=== PATIENT | male | born 1945 | race Caucasian/White ===

== ENCOUNTER 2018-06-11 19:03 | Emergency (ER) | payer MEDICARE, OTHER ==
[~2018-06-11] VITALS: Ht 182.9 cm; Wt 72.6 kg
[~2018-06-11 19:03] MED LIST: ALBU90OI INH; AMLO5 PO; ATEN25; BENZ100A PO; CARI350 PO; CEPH500 PO; CLIN300 PO; CRUTCH4 USE; CYCL10 PO; DOC250 PO; Doxycycline150 MG PO; FURO20 PO; FURO40 PO; GABA300 PO; GABA600 PO; GUAIFENESIN-DM S5 ML PO; HYDACE10B PO; HYDACE5 PO; HYDCHL12.5 PO; HYDCHL25; IBUP800 PO; KETO10 PO; LASIX; LEVFLO500 PO; Lasix20 MG PO; META800 PO; METO2.5 PO; METPHE20 PO; METR500 PO; MODA200 PO; NAPR500 PO; NAPR550 PO; NORCO; NYST100P TOP; OLME20 PO; ONDA4 PO; OXYACE5T PO; POTASSIUM; POTCHL20ER PO; PRED20 PO; PROM25 PO; QUIN325; ROPI.25 PO; RXCEPH500 PO; RXHYDACE PO; RXMETA800 PO; RXOXYACE PO; RXSULTRIDS PO; RXTRAM50 PO; SULTRIDS PO; SULTRISS PO; SUMA25 PO; TESTOSTERONE; TESTOSTERONE GEL; TRAACE PO; TRAM50 PO; TRAZ50 PO; VALS80; VALS80 PO; VENL37.5 PO; VENL75ER PO; WARF1 PO; WARF7.5 PO
== END 2018-06-11 20:50 | disposition home or self-care (01) ==
LOC: ER 19:03
DX: D68.32 Hemorrhagic disorder due to extrinsic circulating anticoagulants (principal); T45.515A Adverse effect of anticoagulants, initial encounter; I10 Essential (primary) hypertension; Z79.899 Other long term (current) drug therapy; Z79.01 Long term (current) use of anticoagulants; Z87.891 Personal history of nicotine dependence
CPT/HCPCS: 96372; 99282; J3430

== ENCOUNTER 2018-09-27 16:02 | Emergency (ER) | payer OTHER ==
[~2018-09-27 16:02] MED LIST changes: +ACETAMINOPHEN500 MG PO; +Coumadin5 MG PO; +Lasix40 MG PO; +Micro-K10 MEQ PO; +Ultram50 MG PO; +XARELTO10 MG PO
== END 2018-09-27 16:29 | disposition left against medical advice (07) ==
LOC: ER 16:02
DX: Z53.21 Procedure and treatment not carried out due to patient leaving prior to being seen by health care provider (principal)

== ENCOUNTER → 2018-09-28 | Outpatient (CLI) | payer MEDICARE, OTHER ==
[2018-09-28 19:44] LABS: International Normalized Ratio 1.1; Prothrombin Time Results 11.3 Sec (9.7-11.5)
[2018-09-28 19:59] LABS: CHOL/HDL RATIO 2.3; Cholesterol 116 mg/dL (50-200); HDL Cholesterol 50 mg/dL (>39); LDL/HDL RATIO 1.2; Low Density Lipoprotein Chol 58 mg/dL (0-110); Triglycerides 42 mg/dL (30-160); Very Low Density Lipoprot Chol 8 mg/dL (6-32)
== END | disposition home or self-care (01) ==
LOC: LAB 17:10 → LAB SHORT 17:10
PROVIDERS: Family Medicine
DX: Z00.00 Encounter for general adult medical examination without abnormal findings (principal); I82.409 Acute embolism and thrombosis of unspecified deep veins of unspecified lower extremity; I86.1 Scrotal varices; R68.82 Decreased libido
CPT/HCPCS: 80061; 84153; 84403; 85610

== ENCOUNTER 2019-09-09 10:11 | Emergency (ER) | payer MEDICARE, OTHER ==
[~2019-09-09] VITALS: Ht 182.9 cm; Wt 90.7 kg
[2019-09-09 10:51] LABS: BASOPHILS ABSOLUTE AUTO 0.04 K/mm3 (0.00-0.23); BASOPHILS PERCENT AUTO 1 % (0-2); EOSINOPHILS ABSOLUTE AUTO 0.15 K/mm3 (0.00-0.68); EOSINOPHILS PERCENT AUTO 2 % (0-6); Hematocrit 41.6 % (37.0-53.0); Hemoglobin 13.6 g/dL (13.5-17.5); IMMATURE GRAN ABSOLUTE AUTO 0.02 K/mm3 (0.00-0.10); IMMATURE GRAN PERCENT AUTO 0 % (0-1); LYMPHOCYTES ABSOLUTE AUTO 1.68 K/mm3 (0.84-5.20); LYMPHOCYTES PERCENT AUTO 26 % (21-46); MONOCYTES ABSOLUTE AUTO 0.79 K/mm3 (0.16-1.47); MONOCYTES PERCENT AUTO 12 % (4-13); Mean Corpuscular HGB 32.2 pg (26.0-34.0); Mean Corpuscular HGB Conc 32.7 g/dL (31.5-36.5); Mean Corpuscular Volume 99 fL (80-100); Mean Platelet Volume 9.9 fL (9.1-12.4); NEUTROPHILS ABSOLUTE AUTO 3.82 K/mm3 (1.96-9.15); NEUTROPHILS PERCENT AUTO 59 % (41-73); Platelet Count 201 K/mm3 (150-400); RDW Coefficient Variation 13.6 % (11.7-14.2); RDW Standard Deviation 49.1 fL (35.1-46.3); Red Blood Cell Count 4.22 M/mm3 (4.30-5.90)
[2019-09-09 11:01] LABS: Anion Gap 5 mmol/L (6-16); Blood Urea Nitrogen 29 mg/dL (8-24); CO2, Blood 27 mmol/L (21-32); Calcium, Blood 8.9 mg/dL (8.5-10.1); Chloride, Blood 110 mmol/L (98-108); Glucose, Blood 114 mg/dL (70-99); Potassium, Blood 4.3 mmol/L (3.5-5.5); Sodium, Blood 142 mmol/L (136-145)
[2019-09-09 11:03] LABS: Bun/Creatinine Ratio 41.8 (12.0-20.0); Creatinine, Blood 0.69 mg/dL (0.60-1.20); Glomerular Filtration Rate >60 (60-)
[2019-09-09 11:08] LABS: International Normalized Ratio 0.94
[2019-09-09 12:37] LABS: Source, Urine Clean Catch
[2019-09-09 12:45] LABS: Appearance, Urine Clear (Clear); Bilirubin, Urine Neg (Neg); Blood, Urine Neg (Neg); Color, Urine Yellow (P-Yellow); Glucose Qualitative, Urine Neg (Neg); Ketones, Urine Neg (Neg); Leukocyte Esterase, Urine Neg (Neg); Nitrite, Urine Neg (Neg); Protein, Urine Neg (Neg); Urobilinogen, Urine NORM (Normal)
[2019-09-09] MEDS ORDERED: XARELTO15 MG PO (13:21)
[2019-09-09] MEDS ORDERED: Lasix40 MG PO (13:21)
== END 2019-09-09 13:56 | disposition home or self-care (01) ==
LOC: ER 10:11
PROVIDERS: Emergency Medicine
DX: I87.8 Other specified disorders of veins (principal); G47.419 Narcolepsy without cataplexy; Z91.14 Patient's other noncompliance with medication regimen; E66.9 Obesity, unspecified; Z68.27 Body mass index [BMI] 27.0-27.9, adult; I10 Essential (primary) hypertension; J44.9 Chronic obstructive pulmonary disease, unspecified; Z87.442 Personal history of urinary calculi; Z85.46 Personal history of malignant neoplasm of prostate; Z87.891 Personal history of nicotine dependence; Z86.718 Personal history of other venous thrombosis and embolism; Z79.899 Other long term (current) drug therapy; Z79.01 Long term (current) use of anticoagulants
CPT/HCPCS: 71046; 80048; 81003; 85025; 85610; 85730; 93005; 93010; 93970; 96374; 99285-25

== ENCOUNTER 2020-10-30 12:26 | Inpatient (IN) | payer MEDICARE, OTHER ==
[~2020-10-30] VITALS: Ht 185.4 cm; Wt 133.3 kg
[~2020-10-30 12:26] MED LIST changes: +XARELTO15 MG PO
[2020-10-30 13:16] LABS: BASOPHILS ABSOLUTE AUTO 0.01 K/mm3 (0.00-0.23); BASOPHILS PERCENT AUTO 0 % (0-2); EOSINOPHILS PERCENT AUTO 0 % (0-6); Hematocrit 45.6 % (37.0-53.0); Hemoglobin 14.7 g/dL (13.5-17.5); IMMATURE GRAN ABSOLUTE AUTO 0.03 K/mm3 (0.00-0.10); IMMATURE GRAN PERCENT AUTO 0 % (0-1); LYMPHOCYTES ABSOLUTE AUTO 0.48 K/mm3 (0.84-5.20); LYMPHOCYTES PERCENT AUTO 6 % (21-46); MONOCYTES ABSOLUTE AUTO 1.02 K/mm3 (0.16-1.47); MONOCYTES PERCENT AUTO 12 % (4-13); Mean Corpuscular HGB 31.7 pg (26.0-34.0); Mean Corpuscular HGB Conc 32.2 g/dL (31.5-36.5); Mean Corpuscular Volume 98 fL (80-100); Mean Platelet Volume 10.8 fL (9.1-12.4); NEUTROPHILS ABSOLUTE AUTO 6.76 K/mm3 (1.96-9.15); NEUTROPHILS PERCENT AUTO 81 % (41-73); Platelet Count 188 K/mm3 (150-400); RDW Coefficient Variation 14.6 % (11.7-14.2); RDW Standard Deviation 52.9 fL (35.1-46.3); Red Blood Cell Count 4.64 M/mm3 (4.30-5.90)
[2020-10-30] MEDS ORDERED: XARELTO20 MG PO (13:21)
[2020-10-30 13:28] LABS: International Normalized Ratio 1.07; Prothrombin Time Results 11.4 Sec (9.7-11.5)
[2020-10-30 13:38] LABS: Alanine Aminotransfer (ALT/SGP 129 U/L (12-78); Albumin, Blood 3.7 g/dL (3.4-5.0); Alk Phos 82 U/L (50-136); Anion Gap 17 mmol/L (6-16); Aspartate Aminotrans (AST/SGOT 174 U/L (12-37); Blood Urea Nitrogen 52 mg/dL (8-24); Bun/Creatinine Ratio 68.6 (12.0-20.0); CO2, Blood 16 mmol/L (21-32); Calcium, Blood 9.2 mg/dL (8.5-10.1); Chloride, Blood 110 mmol/L (98-108); Creatinine, Blood 0.76 mg/dL (0.60-1.20); Globulin, Blood 3.7 g/dL (2.2-4.0); Glomerular Filtration Rate >60 (60-); Glucose, Blood 116 mg/dL (70-99); Potassium, Blood 5.1 mmol/L (3.5-5.5); Sodium, Blood 143 mmol/L (136-145); Total Protein, Blood 7.4 g/dL (6.4-8.2)
[2020-10-30 14:23] LABS: Creatine Kinase MB 61.2 ng/mL (0.0-3.6); Creatine Kinase MB Index 1.9 (0.0-4.0)
[2020-10-30 17:12] LABS: Source, Urine Clean Catch
[2020-10-30 17:21] LABS: Appearance, Urine Clear (Clear); Bilirubin, Urine Neg (Neg); Blood, Urine 2+ (Neg); Color, Urine Yellow (P-Yellow); Glucose Qualitative, Urine Neg (Neg); Ketones, Urine 4+ (Neg); Leukocyte Esterase, Urine Neg (Neg); Nitrite, Urine Neg (Neg); Protein, Urine 1+ (Neg); Specific Gravity, Urine 1.025 (1.003-1.022); Urobilinogen, Urine NORM (Normal)
[2020-10-30 17:28] LABS: Bacteria Rare /hpf; Red Blood Cells, Urine 0-2 /hpf (0-2); Squamous Epithelial Cells Not Seen /hpf (Few); White Blood Cells, Urine 0-2 /hpf (0-5)
[2020-10-30 18:57] LABS: U Amphetamine Screen Not Detected; U Barbituate Screen Not Detected; U Benzodiazapine Screen Not Detected; U Buprenorphine Screen DETECTED; U Cannabinoids Screen Not Detected; U Cocaine Screen Not Detected; U Methadone Screen Not Detected; U Methamphetamine Screen Not Detected; U Opiates Screen Not Detected; U Oxycodone Screen Not Detected; U Phencyclidine Screen Not Detected; U Propoxyphene Screen Not Detected
--- NOTE | 2020-10-30 19:30 | NUR ---
SHIFT SUMMARY TY ARRIVED FROM ER AROUND 530PM. HIS GROIN AND SCROTUM ARE PAINFULLY EXCORIATED, CLEANED, PICTURES TAKEN, MICONAZOLE POWDER APPLIED. MIVF RUNNING. DINNER BROUGHT TO PT. TOOK MEDS PRESCRIBED. USING URINAL APPROPRIATELY. CALL LIGHT IN REACH, REPORT GIVEN TO NIGHT NURSE
--- NOTE | 2020-10-31 01:36 | NUR ---
10/31/20 0135 PT CALLED CERTIFIED NURSING ATTENDANT AND SPOKE IN CHILD-LIKE VOICE THAT HE WANTED "WATER". PT HAD C/O THIRST EARLIER AND DRANK 2 LARGE GLASSES OF WATER IN 5 MINUTES AND WANTED 2 MILKS. AFTER RN GAVE THESE FLUIDS, HE WAS INFORMED TO SLOW DOWN HIS DRINKING. HE RELUCTANTLY SAID, "OKAY."
[2020-10-31 05:28] LABS: BASOPHILS ABSOLUTE AUTO 0.02 K/mm3 (0.00-0.23); BASOPHILS PERCENT AUTO 0 % (0-2); EOSINOPHILS ABSOLUTE AUTO 0.03 K/mm3 (0.00-0.68); EOSINOPHILS PERCENT AUTO 1 % (0-6); Hematocrit 38.1 % (37.0-53.0); Hemoglobin 12.5 g/dL (13.5-17.5); IMMATURE GRAN ABSOLUTE AUTO 0.01 K/mm3 (0.00-0.10); IMMATURE GRAN PERCENT AUTO 0 % (0-1); LYMPHOCYTES ABSOLUTE AUTO 0.97 K/mm3 (0.84-5.20); LYMPHOCYTES PERCENT AUTO 16 % (21-46); MONOCYTES PERCENT AUTO 18 % (4-13); Mean Corpuscular HGB 31.3 pg (26.0-34.0); Mean Corpuscular HGB Conc 32.8 g/dL (31.5-36.5); Mean Corpuscular Volume 95 fL (80-100); Mean Platelet Volume 10.5 fL (9.1-12.4); NEUTROPHILS ABSOLUTE AUTO 4.09 K/mm3 (1.96-9.15); NEUTROPHILS PERCENT AUTO 66 % (41-73); Platelet Count 175 K/mm3 (150-400); RDW Coefficient Variation 14.4 % (11.7-14.2); RDW Standard Deviation 50.4 fL (35.1-46.3); White Blood Cell Count 6.22 K/mm3 (4.00-11.30)
[2020-10-31 06:02] LABS: Alanine Aminotransfer (ALT/SGP 98 U/L (12-78); Albumin, Blood 2.9 g/dL (3.4-5.0); Alk Phos 68 U/L (50-136); Anion Gap 10 mmol/L (6-16); Aspartate Aminotrans (AST/SGOT 103 U/L (12-37); Blood Urea Nitrogen 32 mg/dL (8-24); Bun/Creatinine Ratio 58.6 (12.0-20.0); CO2, Blood 21 mmol/L (21-32); Calcium, Blood 8.4 mg/dL (8.5-10.1); Chloride, Blood 109 mmol/L (98-108); Creatinine, Blood 0.55 mg/dL (0.60-1.20); Globulin, Blood 2.8 g/dL (2.2-4.0); Glomerular Filtration Rate >60 (60-); Glucose, Blood 172 mg/dL (70-99); Potassium, Blood 3.8 mmol/L (3.5-5.5); Sodium, Blood 140 mmol/L (136-145); Total Protein, Blood 5.7 g/dL (6.4-8.2)
--- NOTE | 2020-10-31 07:40 | NUR ---
10/31/20 0600 SLIGHT FEVER THIS AM OTHERWISE VITALS STABLE. PT AWAKE ALL NIGHT. NO REASONS GIVEN. FREQUENT REQUESTS FOR DRINKS/SNACKS THROUGHTOUT SHIFT. GROIN, SCROTUM AND UPPER THIGHS ESCORIATED AND SKIN BARRIER CREAM APPLIED THIS AM. FEET FLOATED OFF BED WITH PILLOWS. OCC."ODD" STATEMENTS TOWARDS STAFF. SEE PREVIOUS NOTE.
--- NOTE | 2020-10-31 10:51 | NUR ---
Pt gave consent to perform care on 10/31/2020.
[2020-10-31 14:27] LABS: Source, Urine Catheter
[2020-10-31 14:39] LABS: Appearance, Urine Clear (Clear); Bilirubin, Urine Neg (Neg); Blood, Urine 3+ (Neg); Color, Urine Yellow (P-Yellow); Glucose Qualitative, Urine Neg (Neg); Ketones, Urine 3+ (Neg); Leukocyte Esterase, Urine Neg (Neg); Nitrite, Urine Neg (Neg); Protein, Urine 1+ (Neg); Urobilinogen, Urine NORM (Normal); pH, Urine 6.5 (5.0-8.0)
[2020-10-31 14:53] LABS: White Blood Cells, Urine 0-2 /hpf (0-5)
[2020-10-31 14:54] LABS: Bacteria Few /hpf; Squamous Epithelial Cells Rare /hpf (Few)
--- NOTE | 2020-10-31 19:17 | NUR ---
SHIFT SUMMARY TY COMPLAINED OF PAIN IN HIS SHOULDERS AND SCROTUM. GOT PO OXY AND ICE PACKS APPLIED TO SHOULDERS. PT STATED HE FELT LIKE HE COULDN'T PEE WELL. BLADDER SCAN SHOWED 744ML, DR ARNETT CALLED AND SHE ORDERED A RUTHERFORD CATHETER. CATHETER IN PLACE AND DRAINING WELL. CALL LIGHT IN REACH, REPORT GIVEN TO NIGHT NURSE
--- NOTE | 2020-11-01 04:38 | NUR ---
LOG BRANDER SUMMARY PT A&OX4, FORGETFUL AT TIMES, ABLE TO MAKE NEEDS KNOWN. PLEASANT AND COOPERATIVE TO CARE. PT MEDICATED FOR BUE PAIN PER EMAR. PT ALSO MEDICATED FOR N&V x1. NO C/O CP OR SOB. RUTHERFORD CATH PATENT AND DRAINING CLEAR YELLOW URINE, NO C/O DYSURIA THIS SHIFT. PT CALM AND RESTED IN BED AT THIS TIME. CALL LIGHT WITHIN REACH.
[2020-11-01 09:04] LABS: Anion Gap 2 mmol/L (6-16); Blood Urea Nitrogen 21 mg/dL (8-24); Bun/Creatinine Ratio 34.9 (12.0-20.0); CO2, Blood 28 mmol/L (21-32); CPK Creatine Kinase 457 U/L (39-308); Calcium, Blood 9.2 mg/dL (8.5-10.1); Chloride, Blood 104 mmol/L (98-108); Glomerular Filtration Rate >60 (60-); Glucose, Blood 149 mg/dL (70-99); Potassium, Blood 4.5 mmol/L (3.5-5.5); Sodium, Blood 134 mmol/L (136-145)
--- NOTE | 2020-11-01 15:02 | NUR ---
PT REFUSED PLACEMENT OF NG TUBE. PT STATED HE IS FEELING BETTER AND NOT NASEAOUS ANY MORE. PT DID HAVE SOME FOOD AND FLUIDS THIS AFTERNOON AT [facility] AND IS CURRENTLY TOLERATING THAT. HE HAS NOT EXPERIENCING ANY EMESIS SINCE THIS AM. DR MERLOS WAS INFORMED OF PT REFUSAL. PT ENCOURAGED TO CONSIDER THE NG TUBE IF EMISIS CONTINUES. DR VALENCIA ALSO CAME BY TO SEE PT. HE STATED HE DOES NOT BELEIVE THE PT HAS A SMALL BOWEL OBSTRUCTION. HE THINKS IT IS PARALYTIC ILEUS. PT STARTED SENNA AND MIRALAX TODAY.
--- NOTE | 2020-11-01 18:31 | NUR ---
SHIFT SUMMARY APPROX 0720, RIGHT AFTER SHIFT REPORT PT EXPERIENCED AN EPISODE OF EMISIS, OUTPUT OF 1400. PT THEN HAD A SECOND EPISODE APPROX 1 HOUR LATER THAT WAS LARGE BUT UNMEASURED. CT SCAN ORDERED AND DR VALENCIA WAS CONSULTED. NG TUBE PLACEMENT WAS THEN ORDERED BUT THE PT REFUSED NG TUBE. PROVIDER WAS NOTIFIED. PT HAS NOT HAS NOT THROWN UP SINCE, AND IS CURRENTLY TOLERATING SMALL AMOUNTS OF FOOD AND LIQUIDS @ A TIME. PT INSISTS ON EATING AND DRINKING THOUGH IT WAS RECOMMENDED TO TAKE IT EASY. PT WAS TREATED FOR NAUSEA @ APPROX 1730 PER EMAR. PT HAS NOT HAD A BM SINCE 10/26/20. PROVIDER NOTIFIED AND BOWEL PROTOCOL WAS STARTED. PT EXPERIENCES PAIN IN THE SHOULDERS AND HIS SCROTUM, PT TREATED TWICE TODAY PER EMAR. PT IS CURRENTLY RECIEVING 100 ML/HR OF NS. PT IS SITTING UP IN BED WITH CALL LIGHT WITHIN REACH. CALLS APPROPRIATELY.
--- NOTE | 2020-11-02 04:16 | NUR ---
SHIFT SUMMARY ASSUMED CARE OF PT AT 1900. PT IS A/OX4 BUT VERY [place]. PT REQUESTED A LOT OF CARE FROM THE NURSE AND BORE MILL OPERATOR FOR PLASTIC THIS EVENING, PT CALLED REPEATIVLY FOR SMALL TASKS. PT WOULD YELL OUT INTO THE [place] WAY. HEART SOUNDS IRREGULAR, LUNG SOUNDS DIMINISHED AT THE BASES. PT ABD IS FIRM AND DISTENDED. PT VOMITED BROWN LIQUID, ABOUT 1400, BUT UNMEASURED DUE TO AMOUNT ON BED. PT GIVEN PHENERGEN AND THEN SLEPT A COUPLE HOURS. PT AWOKE AGAIN AND VOMITED A SMALL AMOUNT BUT REFUSED NEASEA MEDICATION BECAUSE HE STATED THAT IT DIDNT WORK. PT C/O SHOULDER PAIN, MEDICATED PER EMAR. PT WAS NOT ABLE TO SLEEP WELL AND SAT ON THE SIDE OF THE BED BUT THEN LAYED DOWN AFTER 10 MIN. CALL LIGHT IN REACH, BED IN LOWEST POSITION.
--- NOTE | 2020-11-02 11:00 | NUR ---
NG TUBE PLACEMENT PT VOMITING LARGE AMOUNTS OF BROWN EMESIS AND C/O NAUSEA. THIS RN PLACED NG TUBE TO LEFT NOSTRIL WITHOUT DIFFICULTY. NG TUBE IS CONNECTED TO SUCTION AT LOW INTERMITTENT SUCTION. SMALL AMOUNT OF BLEEDING NOTED FROM NOSE BUT STOPPED. WILL MONITOR. CALL LIGHT IN REACH.
--- NOTE | 2020-11-02 19:29 | NUR ---
SHIFT SUMMARY NG TUBE PLACED AT 1100 THIS SHIFT AND HAS PUT OUT LARGE AMOUNTS OF DARK BROWN DRAINAGE. PT PULLED ON NG TUBE THIS EVENING AND ALMOST PULLED IT OUT. THIS RN HAD TO ADVANCE TUBE BACK TO POSITION WAS IN FOR SUCTION. PT TOLERATED WELL. MEDICATED FOR PAIN X2 PER EMAR. PT HAS REPORTED FEELING BETTER SINCE NG WAS PLACED. NO COMPLAINTS OF NAUSEA OR ABDOMINAL PAIN. REPORT GIVEN TO AMISH RN. CALL LIGHT IN REACH.
--- NOTE | 2020-11-03 04:35 | NUR ---
SHIFT SUMMARY ASSUMED CARE OF PT AT 1900. PT IS A/OX4. HEART SOUNDS REGULAR, LUNG SOUNDS DIMINISHED. ABD IS STILL DISTENED BUT NOT FIRM YESTERDAY. PT NG TUBE IS DRAINING BROWN LIQUID, PT DRAINED ABOUT 1000ML THIS SHIFT. PT REFUSED BOWEL CARE MEDICATIONS BECAUSE HE HAD THE NG TUBE AND SAID HE WOULD TAKE THEM IN THE AM. CATHETER DRAINING YELLOW URINE. PT SKIN IS IMPROVING SINCE YESTERDAY. PT HAS REPEATIVLY CALLED THIS NURSE AND REFRIGERATED CARGO CLERK INTO THE ROOM FOR SMALL TASKS. PT STATED RUDE COMMENTS WHEN HE FELT THAT HE WAS BEING PATRONIZED. PT TOLD A REFRIGERATED CARGO CLERK THAT SHE NEEDED TO GET HEARING AIDES IF SHE COULDNT HEAR HIM. PT WILL ASK FOR A PILLOW TO BE PUT UNDER HIS HEAD AND THEN HE WILL IMMEDIATLY PULL THE PILLOW OUT. PT C/O PAIN IN HIS NOSTRIL DUE TO NG TUBE AND ASKED THAT IT BE PULLED OUT AND PUT INTO OTHER NOSE. PT C/O HIS HICCUPS HURTING HIS NOSE DUE TO NG TUBE, PT ASKS FOR IV BOWEL CARE. AT ONE POINT PT ASKED REFRIGERATED CARGO CLERK TO STAY IN ROOM TO TALK TO HIM ALL NIGHT. CALL LIGHT IN REACH, BED IN LOWEST POSITON.
[2020-11-03 09:15] LABS: Albumin, Blood 2.7 g/dL (3.4-5.0); Anion Gap 5 mmol/L (6-16); Blood Urea Nitrogen 20 mg/dL (8-24); Bun/Creatinine Ratio 32.6 (12.0-20.0); CO2, Blood 33 mmol/L (21-32); Calcium, Blood 8.6 mg/dL (8.5-10.1); Chloride, Blood 104 mmol/L (98-108); Creatinine, Blood 0.61 mg/dL (0.60-1.20); Glomerular Filtration Rate >60 (60-); Glucose, Blood 146 mg/dL (70-99); Phosphorus, Blood 2.2 mg/dL (2.5-4.9); Sodium, Blood 142 mmol/L (136-145)
--- NOTE | 2020-11-03 18:21 | NUR ---
SHIFT SUMMARY PT WORKED WITH PHYSICAL & OCCUPATIONAL THERAPY TODAY. PT GOT UP TO RECLINER WITH 1P ASSIST. NO BM THIS SHIFT, BUT PT STATES HE IS PASSING GAS. PT DEMANDING & IMPATIENT WITH CARE T/O DAY, BUT OVERALL COOPERATIVE. SEE EMAR FOR PAIN EMERGENCY PLANNING AND RESPONSE MANAGER. NGT HOOKED UP TO LOW INT SUCTION. 650 ML DARK BROWN OUTPT. NO OTHER ACUTE CHANGES IN ASSESSMENT AT THIS TIME. VS REVIEWED. PT UP IN CHAIR, SWABBING MOUTH CURRENTLY.
[2020-11-03 20:08] LABS: Hematocrit 42.2 % (37.0-53.0); Hemoglobin 13.7 g/dL (13.5-17.5); Mean Corpuscular HGB 31.9 pg (26.0-34.0); Mean Corpuscular HGB Conc 32.5 g/dL (31.5-36.5); Mean Corpuscular Volume 98 fL (80-100); Mean Platelet Volume 9.9 fL (9.1-12.4); NRBC ABSOLUTE 0.03 K/mm3 (0.00-0.02); NRBC Auto 0.4 /100 WBC (0.0-0.2); Platelet Count 208 K/mm3 (150-400); RDW Coefficient Variation 14.6 % (11.7-14.2); RDW Standard Deviation 52.5 fL (35.1-46.3); Red Blood Cell Count 4.29 M/mm3 (4.30-5.90); White Blood Cell Count 7.39 K/mm3 (4.00-11.30)
--- NOTE | 2020-11-03 20:57 | NUR ---
JHON LANGFORD CREDIT RISK ASSOCIATE, CALLED WITH ORDERS TO HOLD LOVENOX TONIGHT ONLY DUE TO SCROTAL BLEEDING EARLIER TONIGHT AT 1920.
--- NOTE | 2020-11-03 23:30 | NUR ---
0 PT FOUND SITTING CHAIR WITH POOL BLOOD ON FLOOR AND AROUND SCROTUM; DIRECT PRESSURE APPLIED TO RIGHT SIDE OF SCROTUM BY GILA STEWART; PT ASSISTED INTO BED VIA ROOM LIFT X 4 ASSIST; ERNESTO DRESSING APPLIED TO SITE BY MONIKA ROE RN, ICU CHARGE NURSE WITH NO BLEEDING NOTED AFTER 10 MINUTES; VITAL SIGNS STABLE. 2049 PT WAS ROLLED BACK AND FORTH AND NO FURTHER BLEEDING WAS NOTED AT SCROTUM; FRESH SHEETS AND DRAINAGE PADS APPLIED TO BED. 2229 PT CONTINUES TO RING LIGHT NUMEROUS TIMES FOR VARIOUS REQUESTS TO INCLUDE DIMMING LIGHT, ASSISTING WITH ADLS.
--- NOTE | 2020-11-04 04:57 | NUR ---
SHIFT SUMMARY: 75 Y/O MORBID OBESE MALE HAD VERY RESTLESS NIGHT WITH PT VERY IRRITABLE AND ARGUEMENTIVE WITH ALL NURSING STAFF; PT UTILIZED CALL LIGHT EVERY 5-10 MINUTES TO BE REPOSITIONED OR GIVEN MORE MOUTH SWABS; PT WAS KEPT NPO EVEN THOUGH PT TRIED NUMEROUS TIMES TO GET ICE CHIPS OR WATER FROM STAFF; PT ALSO HAD BLEEDING EPISODE FROM RIGHT SIDE SCROTUM THAT REQUIRED A RAPID RESPONSE TREATMENT AFTER LARGE POOL BLOOD FOUND ON FLOOR AND UNDER PATIENT WHILE HE WAS SITTING BEDSIDE LOUNGE CHAIR WITH NEPTUME DRESSING (CAUTERIZED SITE) APPLIED WHICH STOPPED THE BLEEDING (NO FURTHER ISSUES WERE NOTED DURING THIS SHIFT AFTER NUMEROUS CHECKS BY THIS NURSE); PTS NG TUBE LEFT NARE HAD CLEAR DRAINAGE; PT HAD NO BM THIS SHIFT EXCEPT FLATUS WHICH PATIENT VOICED HE WAS HAVING NOW; BED ALARM APPLIED FOR SAFETY; BED LOW POSITION WITH CALL LIGHT AT SIDE.
[2020-11-04 05:42] LABS: Anion Gap 8 mmol/L (6-16); Blood Urea Nitrogen 15 mg/dL (8-24); Bun/Creatinine Ratio 24.8 (12.0-20.0); CO2, Blood 28 mmol/L (21-32); Calcium, Blood 8.2 mg/dL (8.5-10.1); Chloride, Blood 107 mmol/L (98-108); Glomerular Filtration Rate >60 (60-); Glucose, Blood 111 mg/dL (70-99); Potassium, Blood 3.9 mmol/L (3.5-5.5); Sodium, Blood 143 mmol/L (136-145)
[2020-11-04 05:49] LABS: BASOPHILS ABSOLUTE AUTO 0.02 K/mm3 (0.00-0.23); BASOPHILS PERCENT AUTO 0 % (0-2); EOSINOPHILS PERCENT AUTO 1 % (0-6); Hematocrit 39.6 % (37.0-53.0); IMMATURE GRAN ABSOLUTE AUTO 0.05 K/mm3 (0.00-0.10); IMMATURE GRAN PERCENT AUTO 1 % (0-1); LYMPHOCYTES ABSOLUTE AUTO 1.45 K/mm3 (0.84-5.20); LYMPHOCYTES PERCENT AUTO 18 % (21-46); MONOCYTES ABSOLUTE AUTO 1.43 K/mm3 (0.16-1.47); MONOCYTES PERCENT AUTO 18 % (4-13); Mean Corpuscular HGB Conc 32.8 g/dL (31.5-36.5); Mean Corpuscular Volume 98 fL (80-100); Mean Platelet Volume 9.8 fL (9.1-12.4); NEUTROPHILS ABSOLUTE AUTO 4.81 K/mm3 (1.96-9.15); NEUTROPHILS PERCENT AUTO 61 % (41-73); NRBC ABSOLUTE 0.02 K/mm3 (0.00-0.02); NRBC Auto 0.3 /100 WBC (0.0-0.2); Platelet Count 206 K/mm3 (150-400); RDW Coefficient Variation 14.4 % (11.7-14.2); RDW Standard Deviation 51.5 fL (35.1-46.3); Red Blood Cell Count 4.06 M/mm3 (4.30-5.90); White Blood Cell Count 7.86 K/mm3 (4.00-11.30)
--- NOTE | 2020-11-04 09:45 | NUR ---
SCROTAL BLEEDING. PT CAREFULLY PLACED IN BEDPAN THIS AM AND TAKEN BACK OFF THIS AM. WHEN REMOVING BEDPAN, THIS RN SAW THE PT HAD BLOOD UNDERNEATH OF HIM. UPON INSPECTION OF HIS SCROTUM, A NEW BLEED WAS DISCOVERED. THIS ONE WAS SMALL, BUT BLEEDING SIGNIFICANTLY. PRESSURE IMMEDIATELY BY THIS RN & [employer]ERGLASS AUTO BODY REPAIRER LORI CALLED TO HELP. WHILE GILA SANDOVAL WAS IN ROOM, THE OPENING FROM YESTERDAY'S EVENTS OPENED BACK UP AND STARTED PROFUSELY BLEEDING. PRESSURE APPLIED TO THIS SPOT WELL BY THIS RN. LORI CALLED DR. COLBERT TO COME AND EVALUATE PT ON WHAT TO DO NEXT. ERNESTO DRESSING APPLIED WITH PRESSURE TO HELP CONTROL BLEEDING. AFTER APPROX 20-30 MINUTES OF PRESSURE, BLEEDING STOPPED. LOREN URIOSTEGUI IN ROOM MONITORING PT FOR BLEEDING. TXA ORDERED AND ON STANDBY IN CASE BLEEDING REOCCURS. VSS. PT ALERT & ORIENTED T/O EVENT.
--- NOTE | 2020-11-04 11:52 | NUR ---
CLEANED & BED CHANGED NO FURTHER BLEEDING HAS REMAINED. HARVEY OCAMPO TECH IN ROOM MONITORING FOR CHANGES. PT LINEN CHANGED & SKIN CLEANED FROM THIS AM. PT TOLERATED WELL. GENTLE MOVEMENT OF SCROTUM T/O.
--- NOTE | 2020-11-04 14:30 | NUR ---
ANOTHER SCROTAL BLEED PT SAT HIMSELF UP TO THE SIDE OF THE BED. PT ASKED TO STOP, BUT STATED THAT HIS BACK HURT TOO MUCH AND HE NEEDED TO SIT UP. DURING THE PROCESS ANOTHER BLEED OCCURED TO THE L SIDE OF THE SCROTUM. THIS BLEED WAS QUICKLY STOPPED WITH SERTASEAL AND PRESSURE. DR. COLBERT NOTIFIED OF YET ANOTHER BLEED. SANDOSTANTIN ORDERED AT THIS TIME. DR. COLBERT INSTRUCTED TO KEEP PT BEDREST AND USE SERTRASEAL DRESSING FOR FUTURE BLEEDS. PT CONTINUES TO BE A ONE ON ONE PT FOR MONITORING OF BLEEDS PT DOES NOT KNOW WHEN THEY OCCUR AND CANNOT BE TRUSTED TO STAY IN BED.
[2020-11-04 16:00] LABS: Hematocrit 40.3 % (37.0-53.0); Hemoglobin 12.9 g/dL (13.5-17.5)
--- NOTE | 2020-11-04 17:22 | NUR ---
3RD SCROTAL BLEEDING. 3RD BLEED FOUND ON THE UNDERSIDE OF THE SCROTUM THIS AFTERNOON. PT DID NOTHING IN THE BED FOR THIS TO OCCUR. BLEED WAS STOPPED AFTER APPLYING SERTRASEAL AND MANUAL PRESSURE TO SCRUTUM. DR. COLBERT NOTIFED & CAME UP TO SEE PT BLOOD LOSS. PLANS TO TRANSFER TO [facility] NOW IN MOTION PER DR. COLBERT. PT BP STABLE AT 158/94, HR 104. PT ALERT & ORIENTED. 1 ON [address] CURRENTLY.
--- NOTE | 2020-11-04 17:47 | NUR ---
SHIFT SUMMARY PT HAS EXPERIENCED 4 SCROTAL BLEEDS IN TOTAL TODAY IN 4 DIFFERENT SPOTS. SEE PREVIOUS NOTES. PLAN TO SEND PT TO [facility] FOR FURTHER TREATMENT PER DR. COLBERT. PT VITALS HAVE REMAINED STABLE T/O THE DAY. NO BM TODAY. PT PASSING GAS. NGT OUTPUT HAD SLOWED COMPARED TO YESTERDAY & HAD BECOME MORE DARK GREEN IN COLOR. PT HAS REMAINED A&OX4 T/O THE DAY. SEE EMAR FOR PAIN MEDS ADMIN. NGT AT LOW INT SUCTION. NO OTHER ACUTE CHANGES IN ASSESSMENT AT THIS TIME. PT SON UPDATED EARLIER TODAY ABOUT ILLIUM AND SCROTAL BLEEDING. VSS. PT RESTING IN BED. 1 TO 1 OBSERVATION TO MONITOR FURTHER BLEEDING.
[2020-11-04 17:48] LABS: International Normalized Ratio 1.07; Prothrombin Time Results 11.4 Sec (9.7-11.5)
--- NOTE | 2020-11-04 18:40 | NUR ---
REPORT CALLED TO GILA YADAV AT [facility]. NO FURTHER QUESTIONS REQUIRED AT THIS TIME.
--- NOTE | 2020-11-04 19:34 | NUR ---
REPORT RECEIVED FROM GILA STEWART; PT DISCHARGED VIA [facility] WITH ALL PERSONAL BELONGINGS TO [facility]; PT ASSISTED INTO GURNEY VIA MECHANICAL LIFT IN ROOM.
[2021-04-28] MEDS ORDERED: CLOBET30L TOP (19:53)
[2021-04-28] MEDS ORDERED: CEPH500 PO (19:53)
== END 2020-11-04 19:36 | disposition short-term general hospital (02) | DRG 558 ==
LOC: ER 12:26 → MEDS 12:27
PROVIDERS: Emergency Medicine; Hospitalist; Internal Medicine; Nurse Practitioner Acute Care; Physician Assistant; Student in an Organized Health Care Education/Training Program; ADMIT Internal Medicine
DX: M62.82 Rhabdomyolysis (principal); K56.0 Paralytic ileus; E87.2 Acidosis; E86.0 Dehydration; R14.0 Abdominal distension (gaseous); Z86.711 Personal history of pulmonary embolism; B37.2 Candidiasis of skin and nail; R53.81 Other malaise
CPT/HCPCS: 36415; 70450; 71045; 74177; 80048; 80053; 80069; 81001; 82271; 82550; 82553; 82947; 83036; 83880; 85014; 85018; 85025; 85027; 85610; 85730; 86850; 86900; 86901; 93005; 93010; 96360; 96361; 97110; 97162; 97165; 97530; 97535; 99285-25; A9270; J1650; J2354; J2405; J2550; J2765; J3010; J7030; J7060; Q9967

== ENCOUNTER 2020-11-09 03:08 | Emergency (ER) | payer MEDICARE, OTHER ==
[~2020-11-09] VITALS: Ht 188 cm; Wt 136.1 kg
[~2020-11-09 03:08] MED LIST changes: +XARELTO20 MG PO
[2020-11-10] MEDS ORDERED: Acetaminophen325 M1 PO (02:52)
[2020-11-10] MEDS ORDERED: ACET325 (02:52)
[2020-11-10] MEDS ORDERED: DILT120 PO (02:53)
[2020-11-10] MEDS ORDERED: Cardizem CD 12120 MG PO (21:55)
[2021-04-28] MEDS ORDERED: CLOBET30L TOP (19:53)
[2021-04-28] MEDS ORDERED: CEPH500 PO (19:53)
== END 2020-11-09 11:28 | disposition home or self-care (01) ==
LOC: ER 03:08
DX: N50.89 Other specified disorders of the male genital organs (principal); Z79.01 Long term (current) use of anticoagulants; Z79.899 Other long term (current) drug therapy; Z87.891 Personal history of nicotine dependence
CPT/HCPCS: 99284

== ENCOUNTER 2020-11-10 02:34 | Emergency (ER) | payer MEDICARE, OTHER ==
[~2020-11-10] VITALS: Ht 185.4 cm; Wt 90.7 kg
[2020-11-10] MEDS ORDERED: ACET325 (02:52)
[2020-11-10] MEDS ORDERED: Acetaminophen325 M1 PO (02:52)
[2020-11-10] MEDS ORDERED: DILT120 PO (02:53)
[2020-11-10] MEDS ORDERED: Cardizem CD 12120 MG PO (21:55)
[2021-04-28] MEDS ORDERED: CEPH500 PO (19:53)
[2021-04-28] MEDS ORDERED: CLOBET30L TOP (19:53)
== END 2020-11-10 03:14 | disposition home or self-care (01) ==
LOC: ER 02:34
DX: I86.1 Scrotal varices (principal); I10 Essential (primary) hypertension; J44.9 Chronic obstructive pulmonary disease, unspecified; Z87.891 Personal history of nicotine dependence; Z79.899 Other long term (current) drug therapy; Z79.01 Long term (current) use of anticoagulants; Z88.6 Allergy status to analgesic agent
CPT/HCPCS: 12001; 99283-25

== ENCOUNTER 2020-11-10 17:38 | Emergency (ER) | payer MEDICARE, OTHER ==
[~2020-11-10] VITALS: Ht 185.4 cm; Wt 131.5 kg
[~2020-11-10 17:38] MED LIST changes: +ACET325; +Acetaminophen325 M1 PO; +DILT120 PO
[2020-11-10 18:42] LABS: BASOPHILS ABSOLUTE AUTO 0.05 K/mm3 (0.00-0.23); BASOPHILS PERCENT AUTO 0 % (0-2); EOSINOPHILS ABSOLUTE AUTO 0.05 K/mm3 (0.00-0.68); EOSINOPHILS PERCENT AUTO 0 % (0-6); Hematocrit 33.5 % (37.0-53.0); Hemoglobin 10.9 g/dL (13.5-17.5); IMMATURE GRAN ABSOLUTE AUTO 0.19 K/mm3 (0.00-0.10); IMMATURE GRAN PERCENT AUTO 1 % (0-1); LYMPHOCYTES ABSOLUTE AUTO 0.72 K/mm3 (0.84-5.20); LYMPHOCYTES PERCENT AUTO 5 % (21-46); MONOCYTES ABSOLUTE AUTO 0.35 K/mm3 (0.16-1.47); MONOCYTES PERCENT AUTO 2 % (4-13); Mean Corpuscular HGB 31.1 pg (26.0-34.0); Mean Corpuscular HGB Conc 32.5 g/dL (31.5-36.5); Mean Corpuscular Volume 96 fL (80-100); Mean Platelet Volume 9.4 fL (9.1-12.4); NEUTROPHILS ABSOLUTE AUTO 14.72 K/mm3 (1.96-9.15); NEUTROPHILS PERCENT AUTO 92 % (41-73); Platelet Count 364 K/mm3 (150-400); RDW Coefficient Variation 14.2 % (11.7-14.2); RDW Standard Deviation 49.8 fL (35.1-46.3); White Blood Cell Count 16.08 K/mm3 (4.00-11.30)
[2020-11-10 19:00] LABS: Alanine Aminotransfer (ALT/SGP 47 U/L (12-78); Albumin, Blood 2.7 g/dL (3.4-5.0); Albumin/Globulin Ratio 0.7 (0.8-1.8); Alk Phos 82 U/L (50-136); Anion Gap 7 mmol/L (6-16); Aspartate Aminotrans (AST/SGOT 45 U/L (12-37); Bilirubin, Total 0.4 mg/dL (0.1-1.0); Blood Urea Nitrogen 23 mg/dL (8-24); Bun/Creatinine Ratio 28.5 (12.0-20.0); CO2, Blood 30 mmol/L (21-32); Calcium, Blood 9.2 mg/dL (8.5-10.1); Chloride, Blood 100 mmol/L (98-108); Creatinine, Blood 0.81 mg/dL (0.60-1.20); Globulin, Blood 3.9 g/dL (2.2-4.0); Glomerular Filtration Rate >60 (60-); Glucose, Blood 154 mg/dL (70-99); Potassium, Blood 3.4 mmol/L (3.5-5.5); Sodium, Blood 137 mmol/L (136-145); Total Protein, Blood 6.6 g/dL (6.4-8.2)
[2020-11-10 21:07] LABS: Troponin I <0.015 ng/mL (0.000-0.040)
[2020-11-10] MEDS ORDERED: Cardizem CD 12120 MG PO (21:55)
[2021-04-28] MEDS ORDERED: CLOBET30L TOP (19:53)
[2021-04-28] MEDS ORDERED: CEPH500 PO (19:53)
== END 2020-11-10 22:01 | disposition home or self-care (01) ==
LOC: ER 17:38
PROVIDERS: Emergency Medicine
DX: I48.91 Unspecified atrial fibrillation (principal); D64.9 Anemia, unspecified; I10 Essential (primary) hypertension; J44.9 Chronic obstructive pulmonary disease, unspecified; Z79.899 Other long term (current) drug therapy; Z79.01 Long term (current) use of anticoagulants; Z88.6 Allergy status to analgesic agent; Z87.891 Personal history of nicotine dependence
CPT/HCPCS: 36415; 80053; 84443; 84484; 85025; 93005; 93010; 96361; 96374; 99285-25; A9270; J7030

== ENCOUNTER 2020-11-12 15:52 | Emergency (ER) | payer MEDICARE, OTHER ==
[~2020-11-12] VITALS: Ht 185.4 cm; Wt 104.3 kg
[~2020-11-12 15:52] MED LIST changes: +Cardizem CD 12120 MG PO
[2020-11-12 17:03] LABS: BASOPHILS ABSOLUTE AUTO 0.05 K/mm3 (0.00-0.23); BASOPHILS PERCENT AUTO 0 % (0-2); EOSINOPHILS ABSOLUTE AUTO 0.03 K/mm3 (0.00-0.68); EOSINOPHILS PERCENT AUTO 0 % (0-6); Hematocrit 32.7 % (37.0-53.0); Hemoglobin 10.6 g/dL (13.5-17.5); IMMATURE GRAN ABSOLUTE AUTO 0.11 K/mm3 (0.00-0.10); IMMATURE GRAN PERCENT AUTO 1 % (0-1); LYMPHOCYTES ABSOLUTE AUTO 1.39 K/mm3 (0.84-5.20); LYMPHOCYTES PERCENT AUTO 8 % (21-46); MONOCYTES ABSOLUTE AUTO 0.98 K/mm3 (0.16-1.47); MONOCYTES PERCENT AUTO 6 % (4-13); Mean Corpuscular HGB 30.9 pg (26.0-34.0); Mean Corpuscular HGB Conc 32.4 g/dL (31.5-36.5); Mean Corpuscular Volume 95 fL (80-100); Mean Platelet Volume 9.2 fL (9.1-12.4); NEUTROPHILS ABSOLUTE AUTO 14.21 K/mm3 (1.96-9.15); NEUTROPHILS PERCENT AUTO 85 % (41-73); Platelet Count 425 K/mm3 (150-400); RDW Coefficient Variation 14.3 % (11.7-14.2); Red Blood Cell Count 3.43 M/mm3 (4.30-5.90); White Blood Cell Count 16.77 K/mm3 (4.00-11.30)
[2020-11-12 17:21] LABS: Alanine Aminotransfer (ALT/SGP 35 U/L (12-78); Albumin, Blood 2.5 g/dL (3.4-5.0); Albumin/Globulin Ratio 0.6 (0.8-1.8); Alk Phos 86 U/L (50-136); Anion Gap 6 mmol/L (6-16); Aspartate Aminotrans (AST/SGOT 25 U/L (12-37); Bilirubin, Total 0.3 mg/dL (0.1-1.0); Blood Urea Nitrogen 22 mg/dL (8-24); Bun/Creatinine Ratio 29.9 (12.0-20.0); CO2, Blood 29 mmol/L (21-32); Calcium, Blood 8.8 mg/dL (8.5-10.1); Chloride, Blood 106 mmol/L (98-108); Creatinine, Blood 0.74 mg/dL (0.60-1.20); Globulin, Blood 4.3 g/dL (2.2-4.0); Glomerular Filtration Rate >60 (60-); Glucose, Blood 127 mg/dL (70-99); Potassium, Blood 3.2 mmol/L (3.5-5.5); Sodium, Blood 141 mmol/L (136-145); Total Protein, Blood 6.8 g/dL (6.4-8.2)
[2021-04-28] MEDS ORDERED: CLOBET30L TOP (19:53)
[2021-04-28] MEDS ORDERED: CEPH500 PO (19:53)
== END 2020-11-12 18:17 | disposition home or self-care (01) ==
LOC: ER 15:52
PROVIDERS: Emergency Medicine
DX: I48.91 Unspecified atrial fibrillation (principal); I10 Essential (primary) hypertension; J44.9 Chronic obstructive pulmonary disease, unspecified; Z79.01 Long term (current) use of anticoagulants; Z79.899 Other long term (current) drug therapy; Z88.6 Allergy status to analgesic agent; Z87.891 Personal history of nicotine dependence
CPT/HCPCS: 36415; 80053; 83690; 85025; 99285

== ENCOUNTER 2020-11-13 00:21 | Emergency (ER) | payer MEDICARE, OTHER ==
[~2020-11-13] VITALS: Ht 185.4 cm; Wt 129.3 kg
[~2020-11-13 00:21] MED LIST changes: -Aspir 8181 MG PO; -BUME1 PO; -CLOBET30L TOP; -DILTIAZEM 24HR120 M4 PO; -DOCU100 PO; -FAMO20 PO; -KLOR-CON M1010 MEQ PO; -LIDO700A20 TOP; -ONDA4ODT MM; -SENN187 PO
[2020-11-13 00:44] LABS: BASOPHILS ABSOLUTE AUTO 0.05 K/mm3 (0.00-0.23); BASOPHILS PERCENT AUTO 0 % (0-2); EOSINOPHILS ABSOLUTE AUTO 0.03 K/mm3 (0.00-0.68); EOSINOPHILS PERCENT AUTO 0 % (0-6); Hematocrit 30.5 % (37.0-53.0); IMMATURE GRAN ABSOLUTE AUTO 0.09 K/mm3 (0.00-0.10); IMMATURE GRAN PERCENT AUTO 1 % (0-1); LYMPHOCYTES ABSOLUTE AUTO 1.71 K/mm3 (0.84-5.20); LYMPHOCYTES PERCENT AUTO 12 % (21-46); MONOCYTES PERCENT AUTO 8 % (4-13); Mean Corpuscular HGB 31.1 pg (26.0-34.0); Mean Corpuscular HGB Conc 32.8 g/dL (31.5-36.5); Mean Corpuscular Volume 95 fL (80-100); Mean Platelet Volume 9.3 fL (9.1-12.4); NEUTROPHILS ABSOLUTE AUTO 10.94 K/mm3 (1.96-9.15); NEUTROPHILS PERCENT AUTO 79 % (41-73); Platelet Count 435 K/mm3 (150-400); RDW Coefficient Variation 14.3 % (11.7-14.2); RDW Standard Deviation 49.7 fL (35.1-46.3); Red Blood Cell Count 3.22 M/mm3 (4.30-5.90); White Blood Cell Count 13.92 K/mm3 (4.00-11.30)
[2020-11-13 01:05] LABS: Alanine Aminotransfer (ALT/SGP 34 U/L (12-78); Albumin, Blood 2.4 g/dL (3.4-5.0); Albumin/Globulin Ratio 0.6 (0.8-1.8); Alk Phos 80 U/L (50-136); Anion Gap 7 mmol/L (6-16); Aspartate Aminotrans (AST/SGOT 20 U/L (12-37); Bilirubin, Total 0.2 mg/dL (0.1-1.0); Blood Urea Nitrogen 26 mg/dL (8-24); Bun/Creatinine Ratio 29.9 (12.0-20.0); CO2, Blood 29 mmol/L (21-32); Calcium, Blood 8.5 mg/dL (8.5-10.1); Chloride, Blood 107 mmol/L (98-108); Creatinine, Blood 0.87 mg/dL (0.60-1.20); Globulin, Blood 4.2 g/dL (2.2-4.0); Glomerular Filtration Rate >60 (60-); Glucose, Blood 122 mg/dL (70-99); Magnesium, Blood 1.8 mg/dL (1.6-2.4); Potassium, Blood 3.3 mmol/L (3.5-5.5); Sodium, Blood 143 mmol/L (136-145); Total Protein, Blood 6.6 g/dL (6.4-8.2); Troponin I <0.015 ng/mL (0.000-0.040)
[2020-11-14] MEDS ORDERED: ONDA4ODT MM (05:50)
[2021-04-28] MEDS ORDERED: CLOBET30L TOP (19:53)
[2021-04-28] MEDS ORDERED: CEPH500 PO (19:53)
== END 2020-11-13 01:46 | disposition home or self-care (01) ==
LOC: ER 00:21
PROVIDERS: Emergency Medicine
DX: I48.91 Unspecified atrial fibrillation (principal); I10 Essential (primary) hypertension; J44.9 Chronic obstructive pulmonary disease, unspecified; Z79.01 Long term (current) use of anticoagulants; Z88.6 Allergy status to analgesic agent; Z79.899 Other long term (current) drug therapy; Z87.891 Personal history of nicotine dependence
CPT/HCPCS: 36415; 80053; 83735; 84484; 85025; 93005; 93010; 96374; 99284-25; A9270

== ENCOUNTER → 2020-11-13 | Outpatient (CLI) | payer MEDICARE, OTHER ==
[~2020-11-13] MED LIST changes: +Aspir 8181 MG PO; +BUME1 PO; +CLOBET30L TOP; +DILTIAZEM 24HR120 M4 PO; +DOCU100 PO; +FAMO20 PO; +KLOR-CON M1010 MEQ PO; +LIDO700A20 TOP; +ONDA4ODT MM; +SENN187 PO
== END | disposition home or self-care (01) ==
LOC: LAB 16:00 → LAB SHORT 16:00
DX: R33.9 Retention of urine, unspecified (principal)
CPT/HCPCS: 87077; 87086; 87186

== ENCOUNTER 2020-11-14 05:22 | Emergency (ER) | payer MEDICARE, OTHER ==
[~2020-11-14] VITALS: Ht 170.2 cm; Wt 122.5 kg
[2020-11-14] MEDS ORDERED: ONDA4ODT MM (05:50)
[2021-04-28] MEDS ORDERED: CEPH500 PO (19:53)
[2021-04-28] MEDS ORDERED: CLOBET30L TOP (19:53)
== END 2020-11-14 06:38 | disposition home or self-care (01) ==
LOC: ER 05:22
DX: R11.0 Nausea (principal); I10 Essential (primary) hypertension; J44.9 Chronic obstructive pulmonary disease, unspecified; Z79.899 Other long term (current) drug therapy; Z88.6 Allergy status to analgesic agent; Z79.82 Long term (current) use of aspirin; Z79.01 Long term (current) use of anticoagulants; Z87.442 Personal history of urinary calculi; Z87.891 Personal history of nicotine dependence
CPT/HCPCS: 99283; A9270

== ENCOUNTER 2020-11-16 12:36 | Emergency (ER) | payer MEDICARE, OTHER ==
[~2020-11-16] VITALS: Ht 182.9 cm; Wt 113.4 kg
[~2020-11-16 12:36] MED LIST changes: +ONDA4ODT MM
[2021-04-28] MEDS ORDERED: CLOBET30L TOP (19:53)
[2021-04-28] MEDS ORDERED: CEPH500 PO (19:53)
== END 2020-11-16 14:29 | disposition home or self-care (01) ==
LOC: ER 12:36
DX: I83.892 Varicose veins of left lower extremity with other complications (principal); I10 Essential (primary) hypertension; J44.9 Chronic obstructive pulmonary disease, unspecified; Z79.01 Long term (current) use of anticoagulants; Z79.899 Other long term (current) drug therapy; Z87.891 Personal history of nicotine dependence; Z88.6 Allergy status to analgesic agent
CPT/HCPCS: 99283; 99283-25

== ENCOUNTER 2020-11-19 09:22 | Inpatient (IN) | payer MEDICARE, OTHER ==
[~2020-11-19] VITALS: Ht 182.9 cm; Wt 125.5 kg
[2020-11-19 12:16] LABS: BASOPHILS ABSOLUTE AUTO 0.02 K/mm3 (0.00-0.23); BASOPHILS PERCENT AUTO 0 % (0-2); EOSINOPHILS PERCENT AUTO 0 % (0-6); Hematocrit 36.3 % (37.0-53.0); Hemoglobin 11.9 g/dL (13.5-17.5); IMMATURE GRAN ABSOLUTE AUTO 0.08 K/mm3 (0.00-0.10); IMMATURE GRAN PERCENT AUTO 1 % (0-1); LYMPHOCYTES ABSOLUTE AUTO 0.58 K/mm3 (0.84-5.20); LYMPHOCYTES PERCENT AUTO 6 % (21-46); MONOCYTES ABSOLUTE AUTO 0.43 K/mm3 (0.16-1.47); MONOCYTES PERCENT AUTO 4 % (4-13); Mean Corpuscular HGB 31.4 pg (26.0-34.0); Mean Corpuscular HGB Conc 32.8 g/dL (31.5-36.5); Mean Corpuscular Volume 96 fL (80-100); Mean Platelet Volume 9.2 fL (9.1-12.4); NEUTROPHILS ABSOLUTE AUTO 8.63 K/mm3 (1.96-9.15); NEUTROPHILS PERCENT AUTO 89 % (41-73); Platelet Count 215 K/mm3 (150-400); RDW Coefficient Variation 15.3 % (11.7-14.2); RDW Standard Deviation 51.8 fL (35.1-46.3); Red Blood Cell Count 3.79 M/mm3 (4.30-5.90); White Blood Cell Count 9.74 K/mm3 (4.00-11.30)
[2020-11-19 12:43] LABS: Alanine Aminotransfer (ALT/SGP 869 U/L (12-78); Albumin, Blood 2.4 g/dL (3.4-5.0); Albumin/Globulin Ratio 0.6 (0.8-1.8); Alk Phos 161 U/L (50-136); Anion Gap 7 mmol/L (6-16); Aspartate Aminotrans (AST/SGOT 1448 U/L (12-37); Bilirubin, Total 0.9 mg/dL (0.1-1.0); Blood Urea Nitrogen 12 mg/dL (8-24); Bun/Creatinine Ratio 26.4 (12.0-20.0); CO2, Blood 27 mmol/L (21-32); Calcium, Blood 8.7 mg/dL (8.5-10.1); Chloride, Blood 104 mmol/L (98-108); Creatinine, Blood 0.45 mg/dL (0.60-1.20); Globulin, Blood 3.9 g/dL (2.2-4.0); Glomerular Filtration Rate >60 (60-); Glucose, Blood 155 mg/dL (70-99); Potassium, Blood 3.7 mmol/L (3.5-5.5); Sodium, Blood 138 mmol/L (136-145); Total Protein, Blood 6.3 g/dL (6.4-8.2)
[2020-11-19 13:38] LABS: Source, Urine Voided
[2020-11-19 13:44] LABS: Appearance, Urine Cloudy (Clear); Bilirubin, Urine Neg (Neg); Blood, Urine 2+ (Neg); Color, Urine Yellow (P-Yellow); Glucose Qualitative, Urine 1+ (Neg); Ketones, Urine Neg (Neg); Leukocyte Esterase, Urine 2+ (Neg); Nitrite, Urine Neg (Neg); Protein, Urine 1+ (Neg); Specific Gravity, Urine 1.015 (1.003-1.022); Urobilinogen, Urine NORM (Normal)
[2020-11-19 13:59] LABS: Bacteria Many /hpf; Red Blood Cells, Urine 0-2 /hpf (0-2); Squamous Epithelial Cells Not Seen /hpf (Few)
[2020-11-19] MEDS ORDERED: DILTIAZEM 24HR120 M4 PO (15:39)
[2020-11-19] MEDS ORDERED: XARELTO20 MG PO (15:39)
[2020-11-19 17:26] LABS: International Normalized Ratio 1.43
--- NOTE | 2020-11-19 19:10 | NUR ---
ASSUMED CARE RECEIVED BEDSIDE REPORT FROM AAYUSHRN; PT A&O X3; VSS; DENIES CHEST PAIN; O2 SATS >93 ON RA; SITTING UP IN BED HOLDING PEN, PAPER AND QTIP SWABS IN HANDS; PT TALKATIVE; ORIENTED TO ROOM/CALL LIGHTS AND SAFETY/UNIT PROTOCOL; CALL LIGHT IN REACH; BED IN LOWEST POSITION; BED ALARM ON FOR SAFETY
[2020-11-19] MEDS ORDERED: SUMA25 PO (19:54)
--- NOTE | 2020-11-19 20:30 | NUR ---
UPDATE SPOKE W/ POISON CONTROL AND DISCUSSED PT PLAN OF CARE, ACETYLCYSTEIN RATE AND POTENTIAL REACTIONS; REQUESTED INR TO BE ADDED TO AM LABS; NOTIFIED AND ORDER GIVEN TO ADD TO AM LAB DRAW; PT EDUCATED ON INTENTIONAL ROUNDING AND APPROPRIATE CALL LIGHT USE; ADDITIONALLY, PT HAS MADE INAPPROPRIATE STATEMENTS TO FEMALE STAFF REGARDING "MUFFIN TOP" "THE TWO RIGHT THERE" AND ATTRACTIVENESS OF FEMALE STAFF; PT EDUCATED ON STAFF PROFESSIONALISM AND TO NOT MAKE REMARKS ABOUT FEMALE STAFF; PT STATED HE UNDERSTOOD, HOWEVER FURTHER REMINDERS NEEDED
[2020-11-19 23:00] LABS: U Amphetamine Screen Not Detected; U Barbituate Screen Not Detected; U Benzodiazapine Screen Not Detected; U Buprenorphine Screen Not Detected; U Cannabinoids Screen Not Detected; U Cocaine Screen Not Detected; U Methadone Screen Not Detected; U Methamphetamine Screen Not Detected; U Opiates Screen DETECTED; U Oxycodone Screen Not Detected; U Phencyclidine Screen Not Detected; U Propoxyphene Screen Not Detected
--- NOTE | 2020-11-20 01:24 | NUR ---
UPDATE PT IS EXPERIENCING FLIGHT OF IDEAS, CALLING OUT, HAS WIDE EYED STARE AND DIFFICULT TO REDIRECT; HR 117; NOTIFIED; NEW ORDERS GIVEN FOR STAT AMMONIA AND TO CALL PHARMACY TO REVIEW MED LIST; MONITORING PT CLOSELY; BED ALARM ON FOR SAFETY
--- NOTE | 2020-11-20 01:45 | NUR ---
MENTATION CHANGES PER PRIMARY RN BRIDGETT, PT IS SUDDENLY EXPRESSING A FLIGHT OF IDEAS, APPEARS TO BE EXPERIENCING BIENVENIDO, UNABLE TO RELAX IN THE BED, EYES HAVE A "BUGGED OUT" APPEARANCE, FLUSHED IN THE TORSO, AND DROOLING. PT MAY BE HEARD YELLING IN A MANNER THAT SOUNDS LIKE SINGING AT THE TOP OF HIS LUNGS THROUGHOUT THE UNIT. DR. PLATA CALLED AND ORDER RECEIVED FOR LABS. ALSO REQUESTED A REVIEW WITH PHARMACY AND POISON CONTROL TO INQUIRE ABOUT POSSIBLE OVERDOSE OF OTHER HOME MEDICATIONS OR REACTION R/T ACUTE HEPATITIS WITH POOR CLEARANCE OF MEDS. SPOKE AT LENGTH WITH RICHARD FROM PHARMACY AND [facility]. RECOMMENDATIONS ARE FOR HEAD CT IF PT CAN TOLERATE HOLDING STILL AND BENZODIAZEPINES NEEDED FOR AGITATION. DISCUSSED WITH DR. PLATA AND PLAN IS FOR CONSIDERATION OF HEAD CT IF CONCERNING NEURO CHANGES. PT IS IMPROVING WITH A MORE RELAXED APPEARANCE AND ABILITY TO HOLD SOME CONVERSATION DURING DR. PLATA'S ASSESSMENT. UPDATES PROVIDED TO BRIDGETT RN AND PLAN TO MONITOR CLOSELY FOR NEURO CHANGES OR SYMPTOMS OF POSSIBLE RITALIN OVERDOSE. PER POISON CONTROL, PT IS EXHIBITING SOME SYMPTOMS OF RITALIN OVERDOSE BUT IS NOT POSITIVE FOR METHAMPHETAMINES ON TOX SCREEN SO THERE IS A QUESTION TO WHETHER PT IS TAKING MEDS PRESCRIBED. PER MED RECONCILIATION, PT FILLED A RITALIN PRESCRIPTION ON 11/13/20 BUT DID NOT BRING BOTTLE IN AND DOES NOT HAVE A FAMILY MEMBER WHO CAN VERIFY NUMBER OF PILLS TAKEN. HOWEVER, RITALIN OVERDOSE WOULD NOT BE EXPECTED TO CAUSE THESE SYMPTOMS AT THIS TIME IN HIS HOSPITALIZATION SO SUSPICIAN IS LOW. POSION CONTROL WILL REMAIN AVAILABLE FOR FURTHER QUESTIONS AND CONCERNS.
--- NOTE | 2020-11-20 04:05 | NUR ---
UPDATE PT CURRENTLY RESTING; MUMBLES TO SELF AT TIMES; CALL LIGHT IN REACH
[2020-11-20 05:11] LABS: BASOPHILS ABSOLUTE AUTO 0.03 K/mm3 (0.00-0.23); BASOPHILS PERCENT AUTO 0 % (0-2); EOSINOPHILS ABSOLUTE AUTO 0.01 K/mm3 (0.00-0.68); EOSINOPHILS PERCENT AUTO 0 % (0-6); Hematocrit 35.7 % (37.0-53.0); Hemoglobin 11.3 g/dL (13.5-17.5); IMMATURE GRAN ABSOLUTE AUTO 0.08 K/mm3 (0.00-0.10); IMMATURE GRAN PERCENT AUTO 1 % (0-1); LYMPHOCYTES ABSOLUTE AUTO 0.87 K/mm3 (0.84-5.20); LYMPHOCYTES PERCENT AUTO 9 % (21-46); MONOCYTES ABSOLUTE AUTO 0.42 K/mm3 (0.16-1.47); MONOCYTES PERCENT AUTO 4 % (4-13); Mean Corpuscular HGB 31.1 pg (26.0-34.0); Mean Corpuscular HGB Conc 31.7 g/dL (31.5-36.5); Mean Corpuscular Volume 98 fL (80-100); Mean Platelet Volume 9.3 fL (9.1-12.4); NEUTROPHILS ABSOLUTE AUTO 8.06 K/mm3 (1.96-9.15); NEUTROPHILS PERCENT AUTO 85 % (41-73); NRBC ABSOLUTE 0.02 K/mm3 (0.00-0.02); NRBC Auto 0.2 /100 WBC (0.0-0.2); Platelet Count 160 K/mm3 (150-400); RDW Coefficient Variation 15.8 % (11.7-14.2); RDW Standard Deviation 54.4 fL (35.1-46.3); Red Blood Cell Count 3.63 M/mm3 (4.30-5.90); White Blood Cell Count 9.47 K/mm3 (4.00-11.30)
[2020-11-20 05:25] LABS: International Normalized Ratio 1.89; Prothrombin Time Results 19.5 Sec (9.7-11.5)
[2020-11-20 05:36] LABS: Acetaminophen, Random <2.0 ug/mL (10.0-30.0)
[2020-11-20 05:37] LABS: Alanine Aminotransfer (ALT/SGP 1398 U/L (12-78); Albumin, Blood 2.2 g/dL (3.4-5.0); Albumin/Globulin Ratio 0.6 (0.8-1.8); Alk Phos 144 U/L (50-136); Anion Gap 11 mmol/L (6-16); Aspartate Aminotrans (AST/SGOT 1889 U/L (12-37); Bilirubin, Total 0.9 mg/dL (0.1-1.0); Blood Urea Nitrogen 15 mg/dL (8-24); Bun/Creatinine Ratio 24.7 (12.0-20.0); CO2, Blood 24 mmol/L (21-32); Calcium, Blood 8.3 mg/dL (8.5-10.1); Chloride, Blood 104 mmol/L (98-108); Creatinine, Blood 0.61 mg/dL (0.60-1.20); Globulin, Blood 3.6 g/dL (2.2-4.0); Glomerular Filtration Rate >60 (60-); Glucose, Blood 146 mg/dL (70-99); Potassium, Blood 3.6 mmol/L (3.5-5.5); Sodium, Blood 139 mmol/L (136-145); Total Protein, Blood 5.8 g/dL (6.4-8.2)
--- NOTE | 2020-11-20 08:01 | NUR ---
SHIFT SUMMARY PT A&O X 3; VERY PARTICULAR W/ CARE AND NEEDS REDIRECTION; HOLDING ITEMS IN HAND AND BECOMES QUITE ANXIOUS WHEN HE CANNOT FIND THEM; PT STATES HE IS LIVING [place]; VSS; SINUS TACH W/ PVC NOTED ON TELE W/ HR 110; O2 SATS >93 ON RA; ACETYLCYSTEINE CONTINUES, 3RD BAG INFUSING @ 66.25; ICE CHIPS AND ICE WATER BROUGHT TO PT FREQUENTLY; PT HAS MOUTH SORES AND SIGNIGICANT DENTAL CONCERNS; USES CALL LIGHT FREQUENTLY; PT REASSURED FREQUENTLY BY NUMEROUS STAFF; CALL LIGHT IN REACH; BED IN LOWEST POSITION; BED ALARM ON; REPORT GIVEN TO DAY SHIFT RN.
[2020-11-20 08:57] LABS: Source, Urine Catheter
[2020-11-20 09:03] LABS: Appearance, Urine Hazy (Clear); Bilirubin, Urine Neg (Neg); Blood, Urine 1+ (Neg); Color, Urine Yellow (P-Yellow); Glucose Qualitative, Urine Neg (Neg); Ketones, Urine 2+ (Neg); Leukocyte Esterase, Urine 3+ (Neg); Nitrite, Urine Neg (Neg); Protein, Urine 2+ (Neg); Urobilinogen, Urine NORM (Normal)
[2020-11-20 09:11] LABS: White Blood Cells, Urine TNTC /hpf (0-5)
[2020-11-20 09:12] LABS: Bacteria Many /hpf; Red Blood Cells, Urine 0-2 /hpf (0-2); Squamous Epithelial Cells Rare /hpf (Few)
[2020-11-20 14:23] LABS: International Normalized Ratio 1.85; Prothrombin Time Results 19.1 Sec (9.7-11.5)
[2020-11-20 14:45] LABS: Albumin, Blood 2.1 g/dL (3.4-5.0); Albumin/Globulin Ratio 0.6 (0.8-1.8); Bilirubin, Direct 0.4 mg/dL (0.0-0.3); Bilirubin, Indirect 0.5 mg/dL (0.1-0.7); Bilirubin, Total 0.9 mg/dL (0.1-1.0); Globulin, Blood 3.4 g/dL (2.2-4.0); Total Protein, Blood 5.5 g/dL (6.4-8.2)
--- NOTE | 2020-11-20 15:43 | NUR ---
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 STATES HE HAS BEEN GRINDING AND SNORTING HIS RITALIN. LAST RX PICKED UP 11/13/20 FOR 90 TABLETS, PT STATES THEY ARE ALL GONE. PROVIDER UPDATED.
[2020-11-20 19:09] LABS: International Normalized Ratio 1.9; Prothrombin Time Results 19.6 Sec (9.7-11.5)
[2020-11-20 19:13] LABS: Albumin, Blood 2.1 g/dL (3.4-5.0); Albumin/Globulin Ratio 0.6 (0.8-1.8); Bilirubin, Direct 0.4 mg/dL (0.0-0.3); Bilirubin, Indirect 0.4 mg/dL (0.1-0.7); Bilirubin, Total 0.8 mg/dL (0.1-1.0); Globulin, Blood 3.3 g/dL (2.2-4.0); Total Protein, Blood 5.4 g/dL (6.4-8.2)
--- NOTE | 2020-11-20 19:18 | NUR ---
SHIFT SUMMARY: PT ALERT AND ORIENTED X3. ABLE TO STATE NAME, BIRTHDATE AND SITUATION. ASKING REPETATIVE QUESTIONS. ON ROOM AIR SATING ABOVE 92%. TELE SHOWING SINUS TACH WITH HR 90-110. DENIES CHEST PAIN. CHRONIC BILATERAL SHOULDER PAIN. LEFT ANKLE WOUND REDRESSED PER DR. PERERA ORDERS. DR. PERERA IN TO SEE PT MULTIPLE TIMES TODAY. ACETYLCYSTINE INFUSING AT 70MLS/HR. SLIGHT FEVER THIS EVENING. DR. PERERA NOTIFIED. NO NEW ORDERS, CONTINUE TO MONITOR. PT ADMITTING TO SNORTING HIS RITALIN AND USING IT EXCESSIVELY. CARE TEAM AWARE OF THIS. POISON CONTROL HAS BEEN IN CONTACT WITH US ABOUT TYLENOL OVERDOSE AND PT LABS/STATUS. BED REMAINED IN LOW LOCKED POSITION.
[2020-11-20 22:21] LABS: International Normalized Ratio 1.97; Prothrombin Time Results 20.3 Sec (9.7-11.5)
[2020-11-20 22:48] LABS: Albumin/Globulin Ratio 0.6 (0.8-1.8); Bilirubin, Direct 0.3 mg/dL (0.0-0.3); Bilirubin, Indirect 0.4 mg/dL (0.1-0.7); Bilirubin, Total 0.7 mg/dL (0.1-1.0); Globulin, Blood 3.3 g/dL (2.2-4.0); Total Protein, Blood 5.3 g/dL (6.4-8.2)
[2020-11-21 02:12] LABS: BASOPHILS ABSOLUTE AUTO 0.08 K/mm3 (0.00-0.23); BASOPHILS PERCENT AUTO 1 % (0-2); EOSINOPHILS ABSOLUTE AUTO 0.02 K/mm3 (0.00-0.68); EOSINOPHILS PERCENT AUTO 0 % (0-6); Hematocrit 32.4 % (37.0-53.0); Hemoglobin 10.8 g/dL (13.5-17.5); IMMATURE GRAN ABSOLUTE AUTO 0.26 K/mm3 (0.00-0.10); IMMATURE GRAN PERCENT AUTO 2 % (0-1); LYMPHOCYTES ABSOLUTE AUTO 2.03 K/mm3 (0.84-5.20); LYMPHOCYTES PERCENT AUTO 17 % (21-46); MONOCYTES ABSOLUTE AUTO 0.42 K/mm3 (0.16-1.47); MONOCYTES PERCENT AUTO 3 % (4-13); Mean Corpuscular HGB 31.4 pg (26.0-34.0); Mean Corpuscular HGB Conc 33.3 g/dL (31.5-36.5); Mean Corpuscular Volume 94 fL (80-100); Mean Platelet Volume 9.5 fL (9.1-12.4); NEUTROPHILS ABSOLUTE AUTO 9.42 K/mm3 (1.96-9.15); NEUTROPHILS PERCENT AUTO 77 % (41-73); NRBC ABSOLUTE 0.56 K/mm3 (0.00-0.02); NRBC Auto 4.6 /100 WBC (0.0-0.2); Platelet Count 160 K/mm3 (150-400); RDW Coefficient Variation 15.6 % (11.7-14.2); RDW Standard Deviation 51.8 fL (35.1-46.3); Red Blood Cell Count 3.44 M/mm3 (4.30-5.90); White Blood Cell Count 12.23 K/mm3 (4.00-11.30)
[2020-11-21 02:36] LABS: International Normalized Ratio 1.89; Prothrombin Time Results 19.5 Sec (9.7-11.5)
[2020-11-21 02:44] LABS: Alanine Aminotransfer (ALT/SGP 3438 U/L (12-78); Albumin/Globulin Ratio 0.6 (0.8-1.8); Alk Phos 162 U/L (50-136); Anion Gap 9 mmol/L (6-16); Aspartate Aminotrans (AST/SGOT 4616 U/L (12-37); Bilirubin, Total 0.7 mg/dL (0.1-1.0); Blood Urea Nitrogen 13 mg/dL (8-24); Bun/Creatinine Ratio 22.1 (12.0-20.0); CO2, Blood 27 mmol/L (21-32); Calcium, Blood 8.4 mg/dL (8.5-10.1); Chloride, Blood 103 mmol/L (98-108); Creatinine, Blood 0.59 mg/dL (0.60-1.20); Globulin, Blood 3.4 g/dL (2.2-4.0); Glomerular Filtration Rate >60 (60-); Glucose, Blood 169 mg/dL (70-99); Potassium, Blood 3.9 mmol/L (3.5-5.5); Sodium, Blood 139 mmol/L (136-145); Total Protein, Blood 5.4 g/dL (6.4-8.2)
[2020-11-21 02:45] LABS: Albumin/Globulin Ratio 0.6 (0.8-1.8); Bilirubin, Direct 0.3 mg/dL (0.0-0.3); Bilirubin, Indirect 0.4 mg/dL (0.1-0.7); Bilirubin, Total 0.7 mg/dL (0.1-1.0); Globulin, Blood 3.3 g/dL (2.2-4.0); Total Protein, Blood 5.3 g/dL (6.4-8.2)
--- NOTE | 2020-11-21 05:36 | NUR ---
SHIFT SUMMARY PT ALERT AND ORIENTED TO SELF, , AND PLACE. PT ANSWERING QUESTIONS WITH ONE WORD AT TIMES. AT TIMES PT STRUGGLES TO STATE NEEDS. VS STABLE. HR SINUS TACH. BP STABLE. O2 SATS REMAIN ABOVE 90% ON RA. PT DENIES ANY PAIN. POISON CONTROL MADE AWARE OF REPEAT LABS. NAC GTT CONTINUES TO INFUSE AT 70ML/H ORDERED. Q4 NEURO CHECKS UNCHANGED. RUTHERFORD PATENT AND DRAINING DARK YELLOW URINE. PT REPOSITIONED Q2H. WILL CONTINUE TO MONITOR CLOSELY AND REPORT TO ONCOMING RN. CALL LIGHT IN REACH. BED ALARM ON FOR SAFETY.
[2020-11-21 06:45] LABS: International Normalized Ratio 1.9; Prothrombin Time Results 19.6 Sec (9.7-11.5)
[2020-11-21 07:01] LABS: Acetaminophen, Random <2.0 ug/mL (10.0-30.0)
[2020-11-21 07:09] LABS: HBSAG SCREEN Negative (Negative); HEP A AB, IGM Negative (Negative); HEP B CORE AB, IGM Negative (Negative); HEP C VIRUS AB 0.2 (0.0-0.9)
[2020-11-21 07:11] LABS: Alanine Aminotransfer (ALT/SGP 3379 U/L (12-78); Albumin/Globulin Ratio 0.6 (0.8-1.8); Alk Phos 169 U/L (50-136); Aspartate Aminotrans (AST/SGOT 3982 U/L (12-37); Bilirubin, Direct 0.3 mg/dL (0.0-0.3); Bilirubin, Indirect 0.5 mg/dL (0.1-0.7); Bilirubin, Total 0.8 mg/dL (0.1-1.0); Globulin, Blood 3.3 g/dL (2.2-4.0); Total Protein, Blood 5.3 g/dL (6.4-8.2)
[2020-11-21 11:28] LABS: Alanine Aminotransfer (ALT/SGP 2946 U/L (12-78); Albumin, Blood 1.8 g/dL (3.4-5.0); Albumin/Globulin Ratio 0.6 (0.8-1.8); Alk Phos 158 U/L (50-136); Anion Gap 11 mmol/L (6-16); Aspartate Aminotrans (AST/SGOT 3084 U/L (12-37); Bilirubin, Total 0.7 mg/dL (0.1-1.0); Blood Urea Nitrogen 10 mg/dL (8-24); Bun/Creatinine Ratio 18.8 (12.0-20.0); CO2, Blood 26 mmol/L (21-32); Calcium, Blood 8.2 mg/dL (8.5-10.1); Chloride, Blood 100 mmol/L (98-108); Creatinine, Blood 0.53 mg/dL (0.60-1.20); Globulin, Blood 3.1 g/dL (2.2-4.0); Glomerular Filtration Rate >60 (60-); Glucose, Blood 242 mg/dL (70-99); Potassium, Blood 3.3 mmol/L (3.5-5.5); Sodium, Blood 137 mmol/L (136-145); Total Protein, Blood 4.9 g/dL (6.4-8.2)
[2020-11-21 16:20] LABS: International Normalized Ratio 1.81; Prothrombin Time Results 18.7 Sec (9.7-11.5)
[2020-11-21 16:43] LABS: Alanine Aminotransfer (ALT/SGP 2643 U/L (12-78); Albumin, Blood 1.8 g/dL (3.4-5.0); Albumin/Globulin Ratio 0.6 (0.8-1.8); Alk Phos 154 U/L (50-136); Anion Gap 8 mmol/L (6-16); Aspartate Aminotrans (AST/SGOT 1974 U/L (12-37); Bilirubin, Total 0.6 mg/dL (0.1-1.0); Blood Urea Nitrogen 9 mg/dL (8-24); Bun/Creatinine Ratio 13.5 (12.0-20.0); CO2, Blood 30 mmol/L (21-32); Calcium, Blood 8.5 mg/dL (8.5-10.1); Chloride, Blood 99 mmol/L (98-108); Creatinine, Blood 0.67 mg/dL (0.60-1.20); Globulin, Blood 3.1 g/dL (2.2-4.0); Glomerular Filtration Rate >60 (60-); Glucose, Blood 174 mg/dL (70-99); Potassium, Blood 3.5 mmol/L (3.5-5.5); Sodium, Blood 137 mmol/L (136-145); Total Protein, Blood 4.9 g/dL (6.4-8.2)
--- NOTE | 2020-11-21 17:55 | NUR ---
SHIFT SUMMARY PT ALERT AND ORIENTED TO PERSON, PLACE; CONFUSED. FORGETFUL AND CALLS REPEATEDLY FOR THE SAME REQUEST. PT REPORTS PAIN TO BILATERAL SHOULDERS, LIDOCAINE PATCHES IN PLACE. PT DENIES SOB, CHEST PAIN, NAUSEA AND DIZZINESS. PT RECEIVING IV NAC. NO NEURO CHANGES NOTED DURING SHIFT. VSS. NO OTHER ACUTE CHAGNES NOTED. WILL CONTINUE TO MONITOR UNTIL REPORT GIVEN TO ONCOMING RN.
[2020-11-21 18:09] LABS: ANA DIRECT Negative (Negative)
[2020-11-21 22:26] LABS: Alanine Aminotransfer (ALT/SGP 2392 U/L (12-78); Albumin, Blood 1.9 g/dL (3.4-5.0); Albumin/Globulin Ratio 0.6 (0.8-1.8); Alk Phos 160 U/L (50-136); Anion Gap 7 mmol/L (6-16); Aspartate Aminotrans (AST/SGOT 1384 U/L (12-37); Bilirubin, Total 0.7 mg/dL (0.1-1.0); Blood Urea Nitrogen 9 mg/dL (8-24); Bun/Creatinine Ratio 14.4 (12.0-20.0); CO2, Blood 32 mmol/L (21-32); Calcium, Blood 8.5 mg/dL (8.5-10.1); Chloride, Blood 100 mmol/L (98-108); Creatinine, Blood 0.63 mg/dL (0.60-1.20); Globulin, Blood 3.1 g/dL (2.2-4.0); Glomerular Filtration Rate >60 (60-); Glucose, Blood 240 mg/dL (70-99); Potassium, Blood 3.5 mmol/L (3.5-5.5); Sodium, Blood 139 mmol/L (136-145)
--- NOTE | 2020-11-21 22:51 | NUR ---
5741- POISON CONTROLLED CALLED AND BASED ON LAB RESULTS @2151 RECOMMENDED STARTING 5TH DOSE OF ACETYLCYSTEINE AT 100MG/KG OVER 16 HOURS. CALLED PHARMACY AND WILL START NEW BAG. SEE EMAR.
[2020-11-22 04:55] LABS: International Normalized Ratio 1.43
[2020-11-22 05:11] LABS: Alanine Aminotransfer (ALT/SGP 2152 U/L (12-78); Albumin, Blood 1.9 g/dL (3.4-5.0); Albumin/Globulin Ratio 0.6 (0.8-1.8); Alk Phos 163 U/L (50-136); Anion Gap 8 mmol/L (6-16); Aspartate Aminotrans (AST/SGOT 977 U/L (12-37); Bilirubin, Total 0.7 mg/dL (0.1-1.0); Blood Urea Nitrogen 7 mg/dL (8-24); Bun/Creatinine Ratio 12.8 (12.0-20.0); CO2, Blood 31 mmol/L (21-32); Calcium, Blood 8.7 mg/dL (8.5-10.1); Chloride, Blood 99 mmol/L (98-108); Creatinine, Blood 0.55 mg/dL (0.60-1.20); Globulin, Blood 3.2 g/dL (2.2-4.0); Glomerular Filtration Rate >60 (60-); Glucose, Blood 188 mg/dL (70-99); Potassium, Blood 3.1 mmol/L (3.5-5.5); Sodium, Blood 138 mmol/L (136-145); Total Protein, Blood 5.1 g/dL (6.4-8.2)
--- NOTE | 2020-11-22 05:54 | NUR ---
SHIFT SUMMARY PATIENT ALERT, ORIENTED X4 BUT FORGETFUL. PATIENT BECOMES AGITATED EASILY AND REPEATEDLY ASKS THE SAME QUESTIONS. PATIENT CONSTANTLY USING CALL LIGHT OR STATING THAT HE DOES NOT HAVE HIS CALL LIGHT AND YELLING OUT, CALL LIGHT FOUND IN PATIENTS LAP. POISON IN CONTACT AND MEDICTION DOSAGE CHANGE, SEE EMAR. CALLED AND LABS CHANGED TO Q6 PER THE RECOMMENDATION OF POISON CONTROL. VSS, NO ACUTE CHANGES. NEURO REMAINS UNCHANGED. 02 SATS 93% ON RA. CALL LIGHT IN REACH, BED ALARM ON, BED IN LOWEST POSITON.
[2020-11-22 10:22] LABS: Albumin, Blood 1.9 g/dL (3.4-5.0); Albumin/Globulin Ratio 0.6 (0.8-1.8); Alk Phos 155 U/L (50-136); Anion Gap 6 mmol/L (6-16); Aspartate Aminotrans (AST/SGOT 707 U/L (12-37); Bilirubin, Total 0.7 mg/dL (0.1-1.0); Blood Urea Nitrogen 7 mg/dL (8-24); Bun/Creatinine Ratio 13.5 (12.0-20.0); CO2, Blood 31 mmol/L (21-32); Calcium, Blood 8.6 mg/dL (8.5-10.1); Chloride, Blood 100 mmol/L (98-108); Creatinine, Blood 0.52 mg/dL (0.60-1.20); Glomerular Filtration Rate >60 (60-); Glucose, Blood 252 mg/dL (70-99); Potassium, Blood 3.4 mmol/L (3.5-5.5); Sodium, Blood 137 mmol/L (136-145); Total Protein, Blood 4.9 g/dL (6.4-8.2)
[2020-11-22 10:30] LABS: Alanine Aminotransfer (ALT/SGP 1904 U/L (12-78)
--- NOTE | 2020-11-22 12:12 | NUR ---
Spiritual care visit conducted. Patient immediately tells me about his dream and his visit to [facility]. Patient then speaks about his Unitarian belief system and his thoughts about God, the afterlife and the importance of living a good life now. Patient explains that he has to get his liver enzymes where they need to be so he can go home because he has work to do. Patient is very talkative and so I normalize his experience and provide therapeutic listening and companionship. Patient responds well and shows signs of having an elevated mood. I will continue to remain available to patient and family.
--- NOTE | 2020-11-22 13:34 | NUR ---
POISON CONTROL CALLED TO CHECK PATIENT STATUS; UPDATED GIVEN; POISON CONTROL PLANS TO SIGN OFF; STATES WE ARE ABLE TO COMPLETE THIS INFUSION OF NAC OR CAN D/C; NOTIFIED DR PERERA; PLANS TO FINISH OUT THIS BAG AND DISCONTINUE. WILL CONTINUE TO MONITOR.
--- NOTE | 2020-11-22 15:52 | NUR ---
Asked patient at beginning of shift (1300) if he was comfortable with a community health nursing director involved in his care. Francisco Javier stated he was comfortable with this.
[2020-11-22 16:50] LABS: Alanine Aminotransfer (ALT/SGP 2004 U/L (12-78); Albumin, Blood 2.2 g/dL (3.4-5.0); Albumin/Globulin Ratio 0.6 (0.8-1.8); Alk Phos 183 U/L (50-136); Anion Gap 6 mmol/L (6-16); Aspartate Aminotrans (AST/SGOT 626 U/L (12-37); Bilirubin, Total 0.7 mg/dL (0.1-1.0); Blood Urea Nitrogen 7 mg/dL (8-24); CO2, Blood 32 mmol/L (21-32); Calcium, Blood 8.9 mg/dL (8.5-10.1); Chloride, Blood 101 mmol/L (98-108); Creatinine, Blood 0.54 mg/dL (0.60-1.20); Globulin, Blood 3.4 g/dL (2.2-4.0); Glomerular Filtration Rate >60 (60-); Glucose, Blood 143 mg/dL (70-99); Potassium, Blood 3.7 mmol/L (3.5-5.5); Sodium, Blood 139 mmol/L (136-145); Total Protein, Blood 5.6 g/dL (6.4-8.2)
--- NOTE | 2020-11-22 17:26 | NUR ---
TRANSFER NOTE PT A&Ox3; FORGETFUL AT TIMES. PT CALLING REPEATEDLY FOR THE SAME THING. PT REPORTS BLE SHOULDERS, LIDO PATCHES IN PLACE. PT DENIES CHEST PAIN, SOB, NAUSE AND DIZZINESS. COMPLETED FINAL BAG OF NAC; POISON CONTROLL SIGNED OFF. VSS. NO OTHER ACUTE CHAGNES NOTED DURING SHIFT. REPORT GIVEN TO RN ASSUMING CARE OF PT. PT TRANSFERED TO ROOM 311 AT 1650 VIA WHEELCHAIR
--- NOTE | 2020-11-22 17:36 | NUR ---
PT ARRIVED TO THE UNIT VIA WHEEL CHAIR. ORIENTED TO THE ROOM. WAS PROVIDED A SNACK. AND TRANSFERED TO THE BED.
[2020-11-23 05:01] LABS: BASOPHILS ABSOLUTE AUTO 0.07 K/mm3 (0.00-0.23); BASOPHILS PERCENT AUTO 1 % (0-2); EOSINOPHILS ABSOLUTE AUTO 0.16 K/mm3 (0.00-0.68); EOSINOPHILS PERCENT AUTO 3 % (0-6); Hematocrit 30.6 % (37.0-53.0); Hemoglobin 9.7 g/dL (13.5-17.5); IMMATURE GRAN ABSOLUTE AUTO 0.12 K/mm3 (0.00-0.10); IMMATURE GRAN PERCENT AUTO 2 % (0-1); LYMPHOCYTES ABSOLUTE AUTO 1.22 K/mm3 (0.84-5.20); LYMPHOCYTES PERCENT AUTO 20 % (21-46); MONOCYTES PERCENT AUTO 17 % (4-13); Mean Corpuscular HGB 30.8 pg (26.0-34.0); Mean Corpuscular HGB Conc 31.7 g/dL (31.5-36.5); Mean Corpuscular Volume 97 fL (80-100); Mean Platelet Volume 9.8 fL (9.1-12.4); NEUTROPHILS ABSOLUTE AUTO 3.48 K/mm3 (1.96-9.15); NEUTROPHILS PERCENT AUTO 58 % (41-73); NRBC ABSOLUTE 0.28 K/mm3 (0.00-0.02); NRBC Auto 4.6 /100 WBC (0.0-0.2); Platelet Count 173 K/mm3 (150-400); RDW Coefficient Variation 16.3 % (11.7-14.2); RDW Standard Deviation 54.1 fL (35.1-46.3); Red Blood Cell Count 3.15 M/mm3 (4.30-5.90); White Blood Cell Count 6.05 K/mm3 (4.00-11.30)
[2020-11-23 05:15] LABS: International Normalized Ratio 1.08; Prothrombin Time Results 11.5 Sec (9.7-11.5)
[2020-11-23 05:44] LABS: Alanine Aminotransfer (ALT/SGP 1447 U/L (12-78); Albumin, Blood 1.9 g/dL (3.4-5.0); Albumin/Globulin Ratio 0.6 (0.8-1.8); Alk Phos 162 U/L (50-136); Anion Gap 5 mmol/L (6-16); Aspartate Aminotrans (AST/SGOT 371 U/L (12-37); Blood Urea Nitrogen 10 mg/dL (8-24); Bun/Creatinine Ratio 18.2 (12.0-20.0); CO2, Blood 31 mmol/L (21-32); Calcium, Blood 8.9 mg/dL (8.5-10.1); Chloride, Blood 103 mmol/L (98-108); Creatinine, Blood 0.55 mg/dL (0.60-1.20); Globulin, Blood 3.1 g/dL (2.2-4.0); Glomerular Filtration Rate >60 (60-); Glucose, Blood 155 mg/dL (70-99); Potassium, Blood 3.8 mmol/L (3.5-5.5); Sodium, Blood 139 mmol/L (136-145)
--- NOTE | 2020-11-23 05:44 | NUR ---
SHIFT SUMMARY PATIENT ALERT AND OCCASIONALL CONFUSED. HAD NO COMPLAINTS OF CHEST PAIN OR SHORTNESS OF BREATH. DID NOT GET MUCH SLEEP OVERNIGHT HE HAD A HARD TIME GETTING COMFORTABLE AND WAS ASKING TO SNACK A LOT. IVS PATENT AND FLUSHED. BED IN LOWEST POSITION WITH WHEELS LOCKED AND ALARM ON. CALL LIGHT WITHIN REACH. REPORT GIVEN TO ONCOMING RN.
--- NOTE | 2020-11-23 17:46 | NUR ---
MARISABEL DENTAL APPOINTMENT UNABLE TO BE MADE FOR PATIENT. DR. PERERA NOTIFIED.
[2020-11-24 06:45] LABS: Alanine Aminotransfer (ALT/SGP 1219 U/L (12-78); Albumin, Blood 2.4 g/dL (3.4-5.0); Albumin/Globulin Ratio 0.7 (0.8-1.8); Alk Phos 163 U/L (50-136); Anion Gap 5 mmol/L (6-16); Aspartate Aminotrans (AST/SGOT 215 U/L (12-37); Bilirubin, Total 0.6 mg/dL (0.1-1.0); Blood Urea Nitrogen 11 mg/dL (8-24); Bun/Creatinine Ratio 18.6 (12.0-20.0); CO2, Blood 30 mmol/L (21-32); Calcium, Blood 9.4 mg/dL (8.5-10.1); Chloride, Blood 101 mmol/L (98-108); Creatinine, Blood 0.59 mg/dL (0.60-1.20); Globulin, Blood 3.5 g/dL (2.2-4.0); Glomerular Filtration Rate >60 (60-); Glucose, Blood 136 mg/dL (70-99); Potassium, Blood 4.1 mmol/L (3.5-5.5); Sodium, Blood 136 mmol/L (136-145); Total Protein, Blood 5.9 g/dL (6.4-8.2)
--- NOTE | 2020-11-24 07:30 | NUR ---
SHIFT SUMMARY PATIENT ALERT AND ORIENTED. WAS MEDICATED TWICE PER EMAR FOR PAIN. PATIENT REFUSED TO SLEEP OVERNIGHT, CLAIMING THAT HE HAD TO BE ALERT IN ORDER TO TALK TO THE POLICE ABOUT KEEPING HIS HOUSE SAFE WHILE HE IS AWAY. IVS PATENT AND FLUSHED. BED IN LOWEST POSITION WITH WHEELS LOCKED AND ALARM ON. CALL LIGHT WITHIN REACH. REPORT GIVEN TO ONCOMING RN.
--- NOTE | 2020-11-24 09:17 | NUR ---
CARE TRANSFERRED TO GILA JAQUEZ. SBAR REPORT GIVEN AT BEDSIDE.
--- NOTE | 2020-11-24 12:12 | NUR ---
THIS SUSTAINABILITY COORDINATOR TOOK OVER PT CARE AT 0900. PT SITTING IN CHAIR TALKING ON PHONE. NO DISTRESS NOTED. AO, BUT CALL ON THE CALL LIGHT CONSTANTLY. WILL CONTINUE TO MONITOR.
--- NOTE | 2020-11-24 18:06 | NUR ---
PT AOX3 AND COOPERATIVE OF CARE. PT IS EXCESSIVELY CALLING WITH THE CALL LIGHT THROUGH OUT THE DAY. PT IS A ONE PERSON WITH GAIT BELT AND WALKER. PT HAS CALL LIGHT WITHIN REACH WILL CONTINUE TO MONITOR.
--- NOTE | 2020-11-25 04:30 | NUR ---
SHIFT SUMMARY ASSUMED CARE OF PT AT 1900. PT IS A/OX4. HEART SOUNDS REGULAR BUT TACHY, TELE SHOWS SINE TACH PAC @ 110. LUNG SOUNDS HAVE CRACKELS IN THE BASES. PT WAS CONTIENENT WITH THE URINAL THIS EVENING. PT C/O PAIN IN HIS SHOULDERS, MEDICATED PER EMAR. NO ACUTE EVENTS. PT SLEPT T/O THE NIGHT. CALL LIGHT IN REACH, BED IN LOWEST POSTION.
[2020-11-25 05:02] LABS: Albumin, Blood 2.1 g/dL (3.4-5.0); Albumin/Globulin Ratio 0.7 (0.8-1.8); Bilirubin, Direct 0.2 mg/dL (0.0-0.3); Bilirubin, Indirect 0.5 mg/dL (0.1-0.7); Bilirubin, Total 0.7 mg/dL (0.1-1.0); Globulin, Blood 3.2 g/dL (2.2-4.0); Total Protein, Blood 5.3 g/dL (6.4-8.2)
--- NOTE | 2020-11-25 17:52 | NUR ---
SHIFT SUMMARY PATIENT ALERT AND ORIENTED THIS SHIFT. PATIENT UP WITH PHYSICAL THERAPY THIS AFTERNOON. PATIENT UP IN THE CHAIR THROUGOUT THIS EVENING. NO ACUTE CHANGES THIS SHIFT. PATIENT COOPERATIVE WITH CARE. PATIENT CURRENTLY SITTING UP IN CHAIR EATING DINNER.
--- NOTE | 2020-11-26 00:37 | NUR ---
ALTERCATION WITH PATIENT PT ASKED THIS NURSE TO LEAVE ORALGEL MEDICATION ON TABLE SO THAT HE CAN TAKE THE MEDICATION. THIS NURSE STATED THAT IT WAS AGAINSIT POLICY AND THE ORDER SAYS Q6. PT THEN ASKED IF I COULD LEAVE SOME ON A QTIP FOR HIM LATER. AGAIN, THIS WOULD BE LEAVING THE MEDICATION IN THE ROOM AND THIS NURSE DENIED HIM. PT BEGAN TO ARGUE AND SAID THAT HE WOULD WRITE THIS NURSE UP. THIS NURSE ASKED IF HE WOULD LIKE TO SPEAK TO THE CHARGE NURSE ABOUT THIS. HE SAID NO AND HE CAN DO THAT HIMSELF. HE THEN SAID THIS NURSE WAS BATERING HIM AFTER THIS NURSE SAID THAT WITH HIS ADMISSION HX, AND DIAGNOSIS HE CAN NOT BE TRUSTED TO TAKE MEDICATION SCHEDULED. THE PT THEN ASKED THIS NURSE TO LEAVE. THIS NURSE THEN ASKED IF HE NEEDED ANYTHING ELSE OR ELSE THIS NURSE HAS OTHER THINGS TO DO, THEN LEFT. WHEN SITTING IN THE HALLWAY CHARTING, PT WAS TALKING TO HIMSELF AND SAID THAT HE WOULD TAKE THIS NURSE TO COURT.
--- NOTE | 2020-11-26 05:16 | NUR ---
SHIFT SUMMARY ASSUMED CARE OF PT AT 1900. PT IS A/OX4. HEART SOUNDS REGULAR, LUNG SOUNDS HAVE CRACKLES AT THE BASES. PT HAS NON PRODUCTIVE COUGH. PT C/O TOOTH PAIN DURING THE NIGHT. NOTIFIED HOSPITAL WHO ORDERED FENTYAL FOR BREAK THROUGH PAIN AND CHANGES THE ORAL GEL ORDER FREQUENCY. PT C/O DRY EYES, MEDICATED PER EMAR. PT USED URINALS AT BEDSIDE. PT HAD AN ANGRY OUTBURST EARLIER BUT HAS BEEN PLEASANT THE REST OF THE SHIFT. SEE PREVIOUS NOTE. CALL LIGHT IN REACH, BED IN LOWEST POSITION.
[2020-11-26 05:25] LABS: Alanine Aminotransfer (ALT/SGP 678 U/L (12-78); Albumin, Blood 2.3 g/dL (3.4-5.0); Albumin/Globulin Ratio 0.7 (0.8-1.8); Alk Phos 142 U/L (50-136); Anion Gap 4 mmol/L (6-16); Aspartate Aminotrans (AST/SGOT 75 U/L (12-37); Bilirubin, Total 0.7 mg/dL (0.1-1.0); Blood Urea Nitrogen 17 mg/dL (8-24); Bun/Creatinine Ratio 22.6 (12.0-20.0); CO2, Blood 28 mmol/L (21-32); Calcium, Blood 8.9 mg/dL (8.5-10.1); Chloride, Blood 103 mmol/L (98-108); Creatinine, Blood 0.75 mg/dL (0.60-1.20); Globulin, Blood 3.4 g/dL (2.2-4.0); Glomerular Filtration Rate >60 (60-); Glucose, Blood 123 mg/dL (70-99); Potassium, Blood 4.4 mmol/L (3.5-5.5); Sodium, Blood 135 mmol/L (136-145); Total Protein, Blood 5.7 g/dL (6.4-8.2)
--- NOTE | 2020-11-26 18:38 | NUR ---
SHIFT SUMMARY- PT IS A/O, PLESANT AND COOPERATIVE. HE IS EATING AND DRINKING WELL. HE WAS UP TO THE CHAIR THIS SHIFT. HE HAD A VISITOR THIS AFTERNOON. PT IS INC. AND REQUIREDD SEVERAL BED CHANGES THIS SHIFT. HE RECIEVED ONE DOSE OF PAIN MEDICATION THIS SHIFT. HIS BED IS IN THE LOW POSITON AND CALL LIGHT IS WITHIN REACH.
--- NOTE | 2020-11-27 03:51 | NUR ---
SHIFT SUMMARY ASSUMED CARE OF PT AT 1900. PT IS A/OX4. HEART SOUNDS REGULAR, TELE SHOWS SINUS TACH PAC PVC @ 104. LUNG SOUNDS ARE DIMINISHED AT BASES. PT USED URINAL AT BEDSIDE. PT USED BEDSIDE COMMODE AND HAD LARGE BM. PT USED THE CALL LIGHT CONSTATNLY DURING THE NIGHT. PT HAS OUTBURSTS OF ANGER WHEN ASKED QUESTIONS HE THINKS ARE DUMB. PT C/O TOOTH PAIN, MEDICATED PER EMAR. PT C/O SHOULDER PAIN, MEDICATED PER EMAR. CALL LIGHT IN REACH, BED IN LOWEST POSTION.
[2020-11-27 08:41] LABS: Albumin, Blood 2.4 g/dL (3.4-5.0); Albumin/Globulin Ratio 0.7 (0.8-1.8); Bilirubin, Direct 0.2 mg/dL (0.0-0.3); Bilirubin, Indirect 0.3 mg/dL (0.1-0.7); Bilirubin, Total 0.5 mg/dL (0.1-1.0); Globulin, Blood 3.6 g/dL (2.2-4.0)
--- NOTE | 2020-11-27 17:04 | NUR ---
PT AO AND COOPERATIVE OF CARE. PT HAS BEEN DOING WELL. PT TREATED FOR SHOULDER PAIN PER EMAR. PT CALLS FREQUENTLY AND OFTEN IF NO ONE ARRIVES IMMEDIATELY. PT IS ONE PERSON TO CHAIR AND USES THE URINAL WHEN NEEDED.NO DISTRESS NOTED AT THIS TIME WILL CONTINUE TO MONITOR.
[2020-11-28 06:09] LABS: Alanine Aminotransfer (ALT/SGP 401 U/L (12-78); Albumin, Blood 2.4 g/dL (3.4-5.0); Albumin/Globulin Ratio 0.7 (0.8-1.8); Alk Phos 127 U/L (50-136); Anion Gap 8 mmol/L (6-16); Aspartate Aminotrans (AST/SGOT 42 U/L (12-37); Bilirubin, Total 0.6 mg/dL (0.1-1.0); Blood Urea Nitrogen 12 mg/dL (8-24); Bun/Creatinine Ratio 22.1 (12.0-20.0); CO2, Blood 23 mmol/L (21-32); Calcium, Blood 8.6 mg/dL (8.5-10.1); Chloride, Blood 106 mmol/L (98-108); Creatinine, Blood 0.54 mg/dL (0.60-1.20); Globulin, Blood 3.4 g/dL (2.2-4.0); Glomerular Filtration Rate >60 (60-); Glucose, Blood 111 mg/dL (70-99); Potassium, Blood 4.1 mmol/L (3.5-5.5); Sodium, Blood 137 mmol/L (136-145); Total Protein, Blood 5.8 g/dL (6.4-8.2)
[2020-11-28] MEDS ORDERED: Aspir 8181 MG PO (11:40)
[2020-11-28] MEDS ORDERED: FAMO20 PO (11:41)
[2020-11-28] MEDS ORDERED: MODA200 PO (11:44)
[2020-11-28] MEDS ORDERED: SENN187 PO (11:45)
[2020-11-28] MEDS ORDERED: TRAM50 PO (11:46)
--- NOTE | 2020-11-28 15:39 | NUR ---
PATIENT AWARE MEDS AT [facility]. HAS HARD COPY FOR TRAMADOL. HAS WALKER. CALLED FRIEND WHO WILL BRING PANTS FOR HIM. PATIENT TO CALL FOR RIDE WITH [facility] AND HE WILL PAY. AWARE TO MAKE F/U APPT W/PCP. ANSWER ALL QUESTIONS. AWARE CAN RETURN TO E.R. IF NEEDED. AWAITING CLOTHES.
--- NOTE | 2020-11-28 17:08 | NUR ---
FRIEND BRINGS SWEAT PANTS IN JUST NOW. FRIEND GETS MONEY OUT OF [employer] FOR PATIENT. FRIEND CALLS [employer] FOR HIM. IN W/C TO E.R ENTRANCE TO WAIT FOR CAB
[2021-04-28] MEDS ORDERED: CLOBET30L TOP (19:53)
[2021-04-28] MEDS ORDERED: CEPH500 PO (19:53)
== END 2020-11-28 17:13 | disposition home health service (06) | DRG 918 ==
LOC: ER 09:22 → MEDS 09:23 → PCU 18:41 → MEDS 11-22 17:07
PROVIDERS: Emergency Medicine; Internal Medicine; ADMIT Internal Medicine
DX: T39.1X1A Poisoning by 4-Aminophenol derivatives, accidental (unintentional), initial encounter (principal); B17.9 Acute viral hepatitis, unspecified; N39.0 Urinary tract infection, site not specified; K71.10 Toxic liver disease with hepatic necrosis, without coma; F55.8 Abuse of other non-psychoactive substances; K71.2 Toxic liver disease with acute hepatitis; B96.20 Unspecified Escherichia coli [E. coli] as the cause of diseases classified elsewhere; G47.419 Narcolepsy without cataplexy; I10 Essential (primary) hypertension; Z86.718 Personal history of other venous thrombosis and embolism; Z79.01 Long term (current) use of anticoagulants; G89.29 Other chronic pain; I48.0 Paroxysmal atrial fibrillation; J44.9 Chronic obstructive pulmonary disease, unspecified; M75.02 Adhesive capsulitis of left shoulder; Z96.653 Presence of artificial knee joint, bilateral; Z86.711 Personal history of pulmonary embolism; M75.01 Adhesive capsulitis of right shoulder; N40.1 Benign prostatic hyperplasia with lower urinary tract symptoms; Z85.46 Personal history of malignant neoplasm of prostate
CPT/HCPCS: 36415; 51701; 51703; 74176; 76705; 80053; 80074; 80076; 81001; 82140; 82947; 83036; 83605; 83690; 85025; 85610; 86038; 87077; 87086; 87186; 93005; 93010; 96361-59; 96365-59; 96375-59; 97110; 97116; 97161; 97166; 97530; 97535; 99285-25; A9270; G0480; J0132; J0696; J1650; J2270; J2405; J2550; J3010; J7030; J7060; J7070

== ENCOUNTER 2020-12-02 10:06 | Emergency (ER) | payer MEDICARE, OTHER ==
[~2020-12-02] VITALS: Ht 185.4 cm; Wt 131.5 kg
[~2020-12-02 10:06] MED LIST changes: +Aspir 8181 MG PO; +DILTIAZEM 24HR120 M4 PO; +FAMO20 PO; +SENN187 PO
[2020-12-02] MEDS ORDERED: XARELTO20 MG PO (10:31)
[2020-12-02 10:42] LABS: BASOPHILS ABSOLUTE AUTO 0.07 K/mm3 (0.00-0.23); BASOPHILS PERCENT AUTO 1 % (0-2); EOSINOPHILS PERCENT AUTO 2 % (0-6); Hematocrit 32.4 % (37.0-53.0); Hemoglobin 10.4 g/dL (13.5-17.5); IMMATURE GRAN ABSOLUTE AUTO 0.01 K/mm3 (0.00-0.10); IMMATURE GRAN PERCENT AUTO 0 % (0-1); LYMPHOCYTES ABSOLUTE AUTO 1.24 K/mm3 (0.84-5.20); LYMPHOCYTES PERCENT AUTO 24 % (21-46); MONOCYTES ABSOLUTE AUTO 0.81 K/mm3 (0.16-1.47); MONOCYTES PERCENT AUTO 16 % (4-13); Mean Corpuscular HGB 31.8 pg (26.0-34.0); Mean Corpuscular HGB Conc 32.1 g/dL (31.5-36.5); Mean Corpuscular Volume 99 fL (80-100); Mean Platelet Volume 9.5 fL (9.1-12.4); NEUTROPHILS PERCENT AUTO 57 % (41-73); Platelet Count 309 K/mm3 (150-400); RDW Coefficient Variation 17.4 % (11.7-14.2); RDW Standard Deviation 62.5 fL (35.1-46.3); Red Blood Cell Count 3.27 M/mm3 (4.30-5.90); White Blood Cell Count 5.23 K/mm3 (4.00-11.30)
[2020-12-02 11:17] LABS: Alanine Aminotransfer (ALT/SGP 180 U/L (12-78); Albumin, Blood 2.8 g/dL (3.4-5.0); Albumin/Globulin Ratio 0.8 (0.8-1.8); Alk Phos 120 U/L (50-136); Anion Gap 5 mmol/L (6-16); Aspartate Aminotrans (AST/SGOT 31 U/L (12-37); Bilirubin, Total 0.5 mg/dL (0.1-1.0); Blood Urea Nitrogen 16 mg/dL (8-24); Bun/Creatinine Ratio 25.1 (12.0-20.0); CO2, Blood 25 mmol/L (21-32); Calcium, Blood 8.7 mg/dL (8.5-10.1); Chloride, Blood 110 mmol/L (98-108); Creatinine, Blood 0.64 mg/dL (0.60-1.20); Globulin, Blood 3.5 g/dL (2.2-4.0); Glomerular Filtration Rate >60 (60-); Glucose, Blood 156 mg/dL (70-99); Potassium, Blood 4.3 mmol/L (3.5-5.5); Sodium, Blood 140 mmol/L (136-145); Total Protein, Blood 6.3 g/dL (6.4-8.2)
[2021-04-28] MEDS ORDERED: CEPH500 PO (19:53)
[2021-04-28] MEDS ORDERED: CLOBET30L TOP (19:53)
== END 2020-12-02 13:20 | disposition home or self-care (01) ==
LOC: ER 10:06
PROVIDERS: Emergency Medicine
DX: R53.81 Other malaise (principal); R53.1 Weakness; R42 Dizziness and giddiness; I10 Essential (primary) hypertension; J44.9 Chronic obstructive pulmonary disease, unspecified; Z91.81 History of falling; Z88.6 Allergy status to analgesic agent; Z79.82 Long term (current) use of aspirin; Z79.899 Other long term (current) drug therapy; Z87.891 Personal history of nicotine dependence
CPT/HCPCS: 36415; 80053; 85025; 93005; 93010; 99285-25; J2060

== ENCOUNTER 2020-12-10 14:21 | Inpatient (IN) | payer MEDICARE, OTHER ==
[~2020-12-10] VITALS: Ht 185.4 cm; Wt 136.1 kg
[2020-12-10 15:14] LABS: BASOPHILS ABSOLUTE AUTO 0.06 K/mm3 (0.00-0.23); BASOPHILS PERCENT AUTO 1 % (0-2); EOSINOPHILS ABSOLUTE AUTO 0.12 K/mm3 (0.00-0.68); EOSINOPHILS PERCENT AUTO 2 % (0-6); Hematocrit 34.5 % (37.0-53.0); Hemoglobin 10.7 g/dL (13.5-17.5); IMMATURE GRAN ABSOLUTE AUTO 0.02 K/mm3 (0.00-0.10); IMMATURE GRAN PERCENT AUTO 0 % (0-1); LYMPHOCYTES ABSOLUTE AUTO 2.27 K/mm3 (0.84-5.20); LYMPHOCYTES PERCENT AUTO 34 % (21-46); MONOCYTES ABSOLUTE AUTO 1.17 K/mm3 (0.16-1.47); MONOCYTES PERCENT AUTO 17 % (4-13); Mean Corpuscular HGB 30.9 pg (26.0-34.0); Mean Corpuscular Volume 100 fL (80-100); Mean Platelet Volume 9.5 fL (9.1-12.4); NEUTROPHILS ABSOLUTE AUTO 3.09 K/mm3 (1.96-9.15); NEUTROPHILS PERCENT AUTO 46 % (41-73); Platelet Count 267 K/mm3 (150-400); RDW Coefficient Variation 16.9 % (11.7-14.2); RDW Standard Deviation 61.1 fL (35.1-46.3); Red Blood Cell Count 3.46 M/mm3 (4.30-5.90); White Blood Cell Count 6.73 K/mm3 (4.00-11.30)
[2020-12-10 15:34] LABS: Alanine Aminotransfer (ALT/SGP 45 U/L (12-78); Albumin, Blood 2.8 g/dL (3.4-5.0); Albumin/Globulin Ratio 0.8 (0.8-1.8); Alk Phos 86 U/L (50-136); Anion Gap 6 mmol/L (6-16); Aspartate Aminotrans (AST/SGOT 16 U/L (12-37); Bilirubin, Total 0.3 mg/dL (0.1-1.0); Blood Urea Nitrogen 23 mg/dL (8-24); Bun/Creatinine Ratio 45.5 (12.0-20.0); CO2, Blood 28 mmol/L (21-32); Calcium, Blood 8.6 mg/dL (8.5-10.1); Chloride, Blood 107 mmol/L (98-108); Creatinine, Blood 0.51 mg/dL (0.60-1.20); Globulin, Blood 3.4 g/dL (2.2-4.0); Glomerular Filtration Rate >60 (60-); Glucose, Blood 135 mg/dL (70-99); Potassium, Blood 3.9 mmol/L (3.5-5.5); Sodium, Blood 141 mmol/L (136-145); Total Protein, Blood 6.2 g/dL (6.4-8.2); Troponin I <0.015 ng/mL (0.000-0.040)
[2020-12-10] MEDS ORDERED: BUME1 PO (16:22)
[2020-12-10] MEDS ORDERED: KLOR-CON M1010 MEQ PO (16:22)
[2020-12-10 17:25] LABS: U Amphetamine Screen Not Detected; U Barbituate Screen Not Detected; U Benzodiazapine Screen Not Detected; U Buprenorphine Screen Not Detected; U Cannabinoids Screen Not Detected; U Cocaine Screen Not Detected; U Methadone Screen Not Detected; U Methamphetamine Screen Not Detected; U Opiates Screen Not Detected; U Oxycodone Screen Not Detected; U Phencyclidine Screen Not Detected; U Propoxyphene Screen Not Detected
--- NOTE | 2020-12-11 04:57 | NUR ---
I WAS TAKING 0400 VITALS ON PT WHEN NOTICING PT WAS HAVING A HARDER TIME BREATHING. WHEN CHECKING O2, PT WAS MAINTAINING 88%. SPOKE WITH GILA HOGUE, WAS ASKED TO PLACE 2 L O2. PT IS SITTING UP NOW AND MAINTAINING O2.
[2020-12-11 05:03] LABS: BASOPHILS ABSOLUTE AUTO 0.08 K/mm3 (0.00-0.23); BASOPHILS PERCENT AUTO 1 % (0-2); EOSINOPHILS ABSOLUTE AUTO 0.16 K/mm3 (0.00-0.68); EOSINOPHILS PERCENT AUTO 2 % (0-6); Hemoglobin 10.4 g/dL (13.5-17.5); IMMATURE GRAN ABSOLUTE AUTO 0.04 K/mm3 (0.00-0.10); IMMATURE GRAN PERCENT AUTO 1 % (0-1); LYMPHOCYTES ABSOLUTE AUTO 2.65 K/mm3 (0.84-5.20); LYMPHOCYTES PERCENT AUTO 37 % (21-46); MONOCYTES ABSOLUTE AUTO 1.28 K/mm3 (0.16-1.47); MONOCYTES PERCENT AUTO 18 % (4-13); Mean Corpuscular HGB 31.6 pg (26.0-34.0); Mean Corpuscular HGB Conc 32.5 g/dL (31.5-36.5); Mean Corpuscular Volume 97 fL (80-100); Mean Platelet Volume 9.8 fL (9.1-12.4); NEUTROPHILS ABSOLUTE AUTO 2.89 K/mm3 (1.96-9.15); NEUTROPHILS PERCENT AUTO 41 % (41-73); Platelet Count 260 K/mm3 (150-400); RDW Coefficient Variation 16.8 % (11.7-14.2); RDW Standard Deviation 59.7 fL (35.1-46.3); Red Blood Cell Count 3.29 M/mm3 (4.30-5.90)
--- NOTE | 2020-12-11 05:14 | NUR ---
SHIFT SUMMARY: PT IS ALERT AND ORIENTED. PT IS COOPERATIVE WITH CARE. PT IS A MAX ASSIST OR A LIFT, NOT OUT OF BED OVERNIGHT; USING THE URINAL IN BED BOTH INDEPENDENTLY AND WITH ASSISTANCE. PT REQUESTING MANY BEVERAGES AND SNACKS, RESTRICTING FLUID INTAKE TO SOME EXTENT, NO FLUID RESTRICTION ORDERED AT THIS TIME. PT REPORTS HAND AND LEG CRAMPS; BELEIVES THIS TO BE RELATED TO LOW POTASSIUM, CALLED DR. HE AND RECEIVED AN ORDER FOR A PO DOSE OF POTASSIUM, LEVEL WAS 3.9. PT HAD ONE INCONTINENT VOID, BED CHANGE COMPLETED. PT CONTINUES TO REPORT ONGOING, INTERMITTENT HAND AND LEG CRAMPS. PT OTHERWISE DENIES PAIN, NAUSEA, VOMITING, OR SOB. PT SLEEPING INTERMITTENTLY THROUGHOUT THE NIGHT. BED IN LOW POSITION, CALL LIGHT WITHIN REACH. WILL CONTINUE TO MONITOR.
[2020-12-11 05:24] LABS: Alanine Aminotransfer (ALT/SGP 38 U/L (12-78); Albumin, Blood 2.5 g/dL (3.4-5.0); Albumin/Globulin Ratio 0.7 (0.8-1.8); Alk Phos 78 U/L (50-136); Anion Gap 5 mmol/L (6-16); Aspartate Aminotrans (AST/SGOT 14 U/L (12-37); Bilirubin, Total 0.4 mg/dL (0.1-1.0); Blood Urea Nitrogen 20 mg/dL (8-24); Bun/Creatinine Ratio 36.3 (12.0-20.0); CO2, Blood 29 mmol/L (21-32); Calcium, Blood 8.4 mg/dL (8.5-10.1); Chloride, Blood 104 mmol/L (98-108); Creatinine, Blood 0.55 mg/dL (0.60-1.20); Globulin, Blood 3.4 g/dL (2.2-4.0); Glomerular Filtration Rate >60 (60-); Glucose, Blood 131 mg/dL (70-99); Potassium, Blood 3.5 mmol/L (3.5-5.5); Sodium, Blood 138 mmol/L (136-145); Total Protein, Blood 5.9 g/dL (6.4-8.2)
--- NOTE | 2020-12-11 16:12 | NUR ---
Echocardiogram performed by Loree Callahan under my supervision.
--- NOTE | 2020-12-11 19:48 | NUR ---
SHIFT SUMMARY- PT ALERT AND ORIENTED X3. PT IS FORGETFUL. PT DECLINED IV BUMEX THIS MORNING STATING THAT IT CAUSES SEVERE HAND CRAMPS AND HE WOULD NOT TAKE IT UNTIL HE SPOKE TO THE DR. DR CARRENO AWARE AND SWITCHED THE PT TO IV LASIX TID. ASKED ABOUT SWITCHING THE PO POTASSIUM SO THE PT RECIEVED A DOSE THIS MORNING THE NEXT DOSE WAS SCHEDULED FOR TOMORROW MORNING. DR AWARE NO NEW POTASSIUM ORDER FOR TODAY, POTASSIUM LEVEL WAS 3.9 THIS MORNING. PT HAS BEEN COOPERATIVE WITH CARE TODAY. BLE ULTRASOUND COMPLETED AND ECHO COMPLETED. PLAN IS FOR THE PT TO POTENTIALLY DC EARLY TOMORROW. PT IN BED CALL LIGHT IN REACH, BEDSIDE REPORT COMPLETED, MEDICATED FOR PAIN PRIOR TO SHIFT CHANGE. NO S&S OF DISTRESS NOTED AT THE TIME OF SHIFT CHANGE.
[2020-12-12 05:11] LABS: Anion Gap 5 mmol/L (6-16); Blood Urea Nitrogen 19 mg/dL (8-24); Bun/Creatinine Ratio 31.1 (12.0-20.0); CO2, Blood 29 mmol/L (21-32); Calcium, Blood 8.3 mg/dL (8.5-10.1); Chloride, Blood 104 mmol/L (98-108); Creatinine, Blood 0.61 mg/dL (0.60-1.20); Glomerular Filtration Rate >60 (60-); Glucose, Blood 125 mg/dL (70-99); Potassium, Blood 3.9 mmol/L (3.5-5.5); Sodium, Blood 138 mmol/L (136-145)
--- NOTE | 2020-12-12 05:11 | NUR ---
CERTIFIED TEACHER ASSISTANT SUMMARY NO ACUTE CHANGES THIS SHIFT. PT AAOX4 AND MOSTLY PLEASANT. SIGNIFICANT EDEMA STILL PRESENT IN BLE'S. PT HAS MAINTAINED 1500 ML FLUID RESTRICTION BUT HAS BEEN IRRITABLE WITH STAFF AT TIMES BECAUSE OF IT, FLUID COUNT TO RESET AT 0600. MEDICATED FOR CHRONIC SHOULDER PAIN WITH TRAMADOL AND FOR ACUTE HEADACHE WITH ASPIRIN. VSS, WILL CONTINUE TO MONITOR.
--- NOTE | 2020-12-12 18:09 | NUR ---
PATIENT HAS BEEN PLEASANT AND COOPERATIVE WITH STAFF. VITALS HAVE BEEN STABLE. CONTINUES TO RECIEVE IV LASIX PER EMAR DUE TO FLUID OVERLOAD. NO ACUTE CHANGES TO REPORT ON AT THIS TIME.
--- NOTE | 2020-12-13 05:16 | NUR ---
WINDOWS VMWARE ENGINEER SUMMARY NO ACUTE CHANGES THIS SHIFT. PT AAOX4 AND PLEASANT. MEDICATED FOR PAIN X1 WITH TRAMADOL. EDEMA IN BLE LOOKS A BIT BETTER COMPARED TO YESTERDAY. PT HAS HAD GOOD URINE OUTPUT AND A NEGATIVE FLUID BALANCE OVERALL. PT HOPEFUL TO BE DISCHARGED HOME TODAY. VSS, WILL CONTINUE TO MONITOR.
[2020-12-13 05:28] LABS: Anion Gap 6 mmol/L (6-16); Blood Urea Nitrogen 22 mg/dL (8-24); Bun/Creatinine Ratio 34.4 (12.0-20.0); CO2, Blood 28 mmol/L (21-32); Calcium, Blood 8.5 mg/dL (8.5-10.1); Chloride, Blood 103 mmol/L (98-108); Creatinine, Blood 0.64 mg/dL (0.60-1.20); Glomerular Filtration Rate >60 (60-); Glucose, Blood 133 mg/dL (70-99); Potassium, Blood 3.8 mmol/L (3.5-5.5); Sodium, Blood 137 mmol/L (136-145)
[2020-12-13] MEDS ORDERED: DOCU100 PO (11:20)
[2020-12-13] MEDS ORDERED: FURO40 PO (11:21)
[2020-12-13] MEDS ORDERED: LIDO700A20 TOP (11:21)
--- NOTE | 2020-12-13 12:09 | NUR ---
SUMMARY PT DISCHARGED TO HOME WITH HOME HEALTH, PT VERBALIZED UNDERSTANDING OF DISCHARGE INSTRUCTIONS, FOLLOW UP AND TRANSPORTATION ARRANGED BY CARE MANAGEMENT, PT TAKEN OUT SAFELY VIA WHEELCHAIR
[2021-04-28] MEDS ORDERED: CEPH500 PO (19:53)
[2021-04-28] MEDS ORDERED: CLOBET30L TOP (19:53)
== END 2020-12-13 12:03 | disposition home or self-care (01) | DRG 948 ==
LOC: ER 14:21 → MEDS 14:22
PROVIDERS: Emergency Medicine; Internal Medicine; ADMIT Internal Medicine
DX: R60.0 Localized edema (principal); I89.0 Lymphedema, not elsewhere classified; E87.70 Fluid overload, unspecified; Z79.82 Long term (current) use of aspirin; Z79.01 Long term (current) use of anticoagulants; I10 Essential (primary) hypertension; J44.9 Chronic obstructive pulmonary disease, unspecified; G47.419 Narcolepsy without cataplexy; Z90.81 Acquired absence of spleen; Z96.653 Presence of artificial knee joint, bilateral; G89.29 Other chronic pain; M54.9 Dorsalgia, unspecified; R29.6 Repeated falls; Z87.891 Personal history of nicotine dependence
CPT/HCPCS: 36415; 71046; 80048; 80053; 83880; 84484; 85025; 93005; 93010; 93306; 93970; 96374; 96375; 96376; 97110; 97116; 97162; 97165; 97530; 97535; 99285-25; A9270; G0378; J1940

== ENCOUNTER 2021-09-23 16:28 | Emergency (ER) | payer MEDICARE, OTHER ==
[~2021-09-23] VITALS: Ht 182.9 cm; Wt 156.9 kg
[~2021-09-23 16:28] MED LIST changes: +BUME1 PO; +CLOBET30L TOP; +Calcium Carbon500 MG PO; +DOCU100 PO; +KLOR-CON M1010 MEQ PO; +LIDO700A20 TOP; +LOPE2C PO; +MODA200; +SENNA LAXATIVE8.6 MG PO; +XARELTO10 M1 PO
[2021-09-23 18:00] LABS: BASOPHILS ABSOLUTE AUTO 0.05 K/mm3 (0.00-0.23); BASOPHILS PERCENT AUTO 1 % (0-2); EOSINOPHILS ABSOLUTE AUTO 0.11 K/mm3 (0.00-0.68); EOSINOPHILS PERCENT AUTO 1 % (0-6); Hematocrit 39.3 % (37.0-53.0); Hemoglobin 13.1 g/dL (13.5-17.5); IMMATURE GRAN ABSOLUTE AUTO 0.04 K/mm3 (0.00-0.10); IMMATURE GRAN PERCENT AUTO 1 % (0-1); LYMPHOCYTES ABSOLUTE AUTO 1.67 K/mm3 (0.84-5.20); LYMPHOCYTES PERCENT AUTO 22 % (21-46); MONOCYTES ABSOLUTE AUTO 0.91 K/mm3 (0.16-1.47); MONOCYTES PERCENT AUTO 12 % (4-13); Mean Corpuscular HGB 31.3 pg (26.0-34.0); Mean Corpuscular HGB Conc 33.3 g/dL (31.5-36.5); Mean Corpuscular Volume 94 fL (80-100); Mean Platelet Volume 10.2 fL (9.1-12.4); NEUTROPHILS ABSOLUTE AUTO 4.85 K/mm3 (1.96-9.15); NEUTROPHILS PERCENT AUTO 64 % (41-73); Platelet Count 225 K/mm3 (150-400); RDW Coefficient Variation 12.9 % (11.7-14.2); RDW Standard Deviation 44.7 fL (35.1-46.3); Red Blood Cell Count 4.18 M/mm3 (4.30-5.90); White Blood Cell Count 7.63 K/mm3 (4.00-11.30)
[2021-09-23 18:19] LABS: Alanine Aminotransfer (ALT/SGP 23 U/L (12-78); Albumin, Blood 2.9 g/dL (3.4-5.0); Albumin/Globulin Ratio 0.7 (0.8-1.8); Alk Phos 91 U/L (50-136); Anion Gap 7 mmol/L (6-16); Aspartate Aminotrans (AST/SGOT 36 U/L (12-37); Bilirubin, Total 0.5 mg/dL (0.1-1.0); Blood Urea Nitrogen 38 mg/dL (8-24); Bun/Creatinine Ratio 42.8 (12.0-20.0); CO2, Blood 31 mmol/L (21-32); Calcium, Blood 9.9 mg/dL (8.5-10.1); Chloride, Blood 99 mmol/L (98-108); Creatinine, Blood 0.89 mg/dL (0.60-1.20); Globulin, Blood 4.4 g/dL (2.2-4.0); Glomerular Filtration Rate >60 (60-); Glucose, Blood 218 mg/dL (70-99); Potassium, Blood 5.1 mmol/L (3.5-5.5); Sodium, Blood 137 mmol/L (136-145); Total Protein, Blood 7.3 g/dL (6.4-8.2)
[2021-09-23] MEDS ORDERED: CEPH500 PO (19:06)
== END 2021-09-23 20:46 | disposition home or self-care (01) ==
LOC: ER 16:28
PROVIDERS: Emergency Medicine
DX: L03.116 Cellulitis of left lower limb (principal); I10 Essential (primary) hypertension; J44.9 Chronic obstructive pulmonary disease, unspecified; G43.909 Migraine, unspecified, not intractable, without status migrainosus; Z88.6 Allergy status to analgesic agent; Z79.899 Other long term (current) drug therapy; Z79.82 Long term (current) use of aspirin
CPT/HCPCS: 80053; 83605; 85025; 85651; 86140; 96365; 99283-25; J0696

== ENCOUNTER 2021-09-25 10:26 | Day surgery (SDC) | payer MEDICARE, OTHER ==
[~2021-09-25] VITALS: Ht 182.9 cm; Wt 161.1 kg
[2021-09-25] MEDS ORDERED: TORSE20 PO (11:26)
[2021-09-25] MEDS ORDERED: NYAMYC TOP (11:26)
[2021-09-25] MEDS ORDERED: BACITO TOP (11:30)
[2021-09-25] MEDS ORDERED: THERA-D2000 UNIT PO (11:30)
[2021-09-25] MEDS ORDERED: BISA10S (11:31)
--- NOTE | 2021-09-25 16:23 | NUR ---
patient [facility] to [facility]. awake nd responds to questions appropriately. dresiing D&I to right common femoral vein amnd right jugular vein. sites soft and nontender. patient taking fluids well.
--- NOTE | 2021-09-25 17:16 | NUR ---
PATIENT IN BED. AWAKE AND EATING A SNACK.
--- NOTE | 2021-09-25 17:20 | NUR ---
PHONED PATIENTS CARE FACILITY. REPORT WAS GIVEN TO LIZ URIOSTEGUI.
--- NOTE | 2021-09-25 17:52 | NUR ---
patient transferred to wheel chair with Alesia Ortiz and myself.
--- NOTE | 2021-09-25 17:55 | NUR ---
phoned [facility] for transferr.
--- NOTE | 2021-09-25 18:36 | NUR ---
PATIENT VERABALIZED UNDERSTANDING OF DISCHARGE INSTRUCTIONS AND PRECAUTIONS. ACCESS SITES SOFT AND NONTENDER. NO HEMATOMA. NO BLEEDING. DRESSINGS DRY AND INTACT. NICK FROM [facility] HERE TO TRANSFERR PATIENT TO [facility] VIA WHEEL CHAIR. NO FURTHER QUESTIONS.
== END 2021-09-25 18:10 | disposition home or self-care (01) ==
LOC: MHTC 10:26
DX: I86.1 Scrotal varices (principal)
CPT/HCPCS: 36011; 75822; 75825; 75833; 76937; 99152; 99153; C1769; C1887; C1894; J1200; J1644; J2060; J2270; J3010; J7030; J7050; Q9967

== ENCOUNTER 2021-09-27 11:07 | Emergency (ER) | payer MEDICARE, OTHER ==
[~2021-09-27] VITALS: Ht 182.9 cm; Wt 154.2 kg
[~2021-09-27 11:07] MED LIST changes: +BACITO TOP; +BISA10S; +NYAMYC TOP; +THERA-D2000 UNIT PO; +TORSE20 PO
[2021-09-27 12:03] LABS: BASOPHILS ABSOLUTE AUTO 0.05 K/mm3 (0.00-0.23); BASOPHILS PERCENT AUTO 1 % (0-2); EOSINOPHILS ABSOLUTE AUTO 0.09 K/mm3 (0.00-0.68); EOSINOPHILS PERCENT AUTO 1 % (0-6); Hematocrit 39.7 % (37.0-53.0); IMMATURE GRAN ABSOLUTE AUTO 0.04 K/mm3 (0.00-0.10); IMMATURE GRAN PERCENT AUTO 1 % (0-1); LYMPHOCYTES ABSOLUTE AUTO 1.85 K/mm3 (0.84-5.20); LYMPHOCYTES PERCENT AUTO 29 % (21-46); MONOCYTES ABSOLUTE AUTO 0.72 K/mm3 (0.16-1.47); MONOCYTES PERCENT AUTO 11 % (4-13); Mean Corpuscular HGB 31.3 pg (26.0-34.0); Mean Corpuscular HGB Conc 32.7 g/dL (31.5-36.5); Mean Corpuscular Volume 95 fL (80-100); Mean Platelet Volume 9.9 fL (9.1-12.4); NEUTROPHILS ABSOLUTE AUTO 3.75 K/mm3 (1.96-9.15); NEUTROPHILS PERCENT AUTO 58 % (41-73); Platelet Count 266 K/mm3 (150-400); RDW Coefficient Variation 12.9 % (11.7-14.2); Red Blood Cell Count 4.16 M/mm3 (4.30-5.90)
[2021-09-27 12:14] LABS: Alanine Aminotransfer (ALT/SGP 23 U/L (12-78); Albumin, Blood 2.8 g/dL (3.4-5.0); Albumin/Globulin Ratio 0.6 (0.8-1.8); Alk Phos 95 U/L (50-136); Anion Gap 5 mmol/L (6-16); Aspartate Aminotrans (AST/SGOT 17 U/L (12-37); Bilirubin, Total 0.4 mg/dL (0.1-1.0); Blood Urea Nitrogen 37 mg/dL (8-24); Bun/Creatinine Ratio 47.3 (12.0-20.0); CO2, Blood 29 mmol/L (21-32); Calcium, Blood 9.7 mg/dL (8.5-10.1); Chloride, Blood 101 mmol/L (98-108); Creatinine, Blood 0.78 mg/dL (0.60-1.20); Glomerular Filtration Rate >60 (60-); Glucose, Blood 308 mg/dL (70-99); Potassium, Blood 4.2 mmol/L (3.5-5.5); Sodium, Blood 135 mmol/L (136-145); Total Protein, Blood 7.8 g/dL (6.4-8.2)
== END 2021-09-27 14:18 | disposition home or self-care (01) ==
LOC: ER 11:07
PROVIDERS: Emergency Medicine
DX: R60.0 Localized edema (principal); I10 Essential (primary) hypertension; G43.909 Migraine, unspecified, not intractable, without status migrainosus; J44.9 Chronic obstructive pulmonary disease, unspecified
CPT/HCPCS: 36415; 80053; 85025; 99284

== ENCOUNTER 2021-10-09 10:30 | Inpatient (IN) | payer MEDICARE, OTHER ==
[~2021-10-09] VITALS: Ht 182.9 cm; Wt 154.8 kg
[~2021-10-09 10:30] MED LIST changes: -DILT120 PO; +DILTIAZEM HCL120 M1 PO
[2021-10-09 11:48] LABS: BASOPHILS ABSOLUTE AUTO 0.02 K/mm3 (0.00-0.23); BASOPHILS PERCENT AUTO 0 % (0-2); EOSINOPHILS ABSOLUTE AUTO 0.03 K/mm3 (0.00-0.68); EOSINOPHILS PERCENT AUTO 0 % (0-6); Hematocrit 44.8 % (37.0-53.0); Hemoglobin 14.9 g/dL (13.5-17.5); IMMATURE GRAN ABSOLUTE AUTO 0.05 K/mm3 (0.00-0.10); IMMATURE GRAN PERCENT AUTO 1 % (0-1); LYMPHOCYTES ABSOLUTE AUTO 1.36 K/mm3 (0.84-5.20); LYMPHOCYTES PERCENT AUTO 16 % (21-46); MONOCYTES ABSOLUTE AUTO 1.02 K/mm3 (0.16-1.47); MONOCYTES PERCENT AUTO 12 % (4-13); Mean Corpuscular HGB 31.2 pg (26.0-34.0); Mean Corpuscular HGB Conc 33.3 g/dL (31.5-36.5); Mean Corpuscular Volume 94 fL (80-100); Mean Platelet Volume 10.5 fL (9.1-12.4); NEUTROPHILS ABSOLUTE AUTO 6.08 K/mm3 (1.96-9.15); NEUTROPHILS PERCENT AUTO 71 % (41-73); Platelet Count 276 K/mm3 (150-400); RDW Coefficient Variation 13.1 % (11.7-14.2); RDW Standard Deviation 45.2 fL (35.1-46.3); Red Blood Cell Count 4.77 M/mm3 (4.30-5.90); White Blood Cell Count 8.56 K/mm3 (4.00-11.30)
[2021-10-09 11:58] LABS: Alanine Aminotransfer (ALT/SGP 23 U/L (12-78); Albumin, Blood 2.8 g/dL (3.4-5.0); Albumin/Globulin Ratio 0.5 (0.8-1.8); Alk Phos 124 U/L (50-136); Anion Gap 7 mmol/L (6-16); Aspartate Aminotrans (AST/SGOT 17 U/L (12-37); Bilirubin, Total 0.4 mg/dL (0.1-1.0); Blood Urea Nitrogen 56 mg/dL (8-24); Bun/Creatinine Ratio 56.1 (12.0-20.0); CO2, Blood 24 mmol/L (21-32); Calcium, Blood 10.2 mg/dL (8.5-10.1); Chloride, Blood 98 mmol/L (98-108); Globulin, Blood 5.4 g/dL (2.2-4.0); Glomerular Filtration Rate >60 (60-); Glucose, Blood 350 mg/dL (70-99); Potassium, Blood 4.9 mmol/L (3.5-5.5); Sodium, Blood 129 mmol/L (136-145); Total Protein, Blood 8.2 g/dL (6.4-8.2)
--- NOTE | 2021-10-09 13:19 | NUR ---
Wound care note; Pt is currently on wound clinic wait list. MD may order STAT referral at [facility] to expidite. Until further work-up this RN recommends keeping clean and dry. May cleanse with NS, pat dry, exu-dry and rolled gauze. If Pt admitted to floor for IV antibiotics, Wound Clinic RN can re-evaluate.
[2021-10-09 17:04] LABS: International Normalized Ratio 1.11; Prothrombin Time Results 11.6 Sec (9.7-11.5)
[2021-10-09] MEDS ORDERED: FURO40 PO (21:42)
[2021-10-09] MEDS ORDERED: BUME2 PO (21:44)
--- NOTE | 2021-10-10 04:25 | NUR ---
SHIFT SUMMARY: PATIENT A&OX4, ANXIOUS, TRACE BLE EDEMA, PANNICIULUS WITH REDNESS UNDERNEATH AND TO GROIN -NYSTATIN ADMINISTERED. BLE WITH THICKENING, ERYTHEMEA, DISCOLORATION, AND WEEPING WOUNDS. BREAKDOWN TO COCCYX-CREAM APPLIED. WOUNDS PHOTOGRAHED AND IMAGES PLACED IN CHART. PATIENT COMPLAINS OF SHARP BURNING PAIN TO CALVES AND HEELS. PRN FENTANYL ADMINISTERED WITH SOME RELIEF. PATIENT REPOSITIONED MULTIPLE TIMES TO REDUCE PRESSURE ON THOSE AREAS. INTERMITTENT MUSCLE SPASMS.
[2021-10-10 05:14] LABS: BASOPHILS ABSOLUTE AUTO 0.04 K/mm3 (0.00-0.23); BASOPHILS PERCENT AUTO 1 % (0-2); EOSINOPHILS ABSOLUTE AUTO 0.05 K/mm3 (0.00-0.68); EOSINOPHILS PERCENT AUTO 1 % (0-6); Hemoglobin 12.7 g/dL (13.5-17.5); IMMATURE GRAN ABSOLUTE AUTO 0.04 K/mm3 (0.00-0.10); IMMATURE GRAN PERCENT AUTO 1 % (0-1); LYMPHOCYTES ABSOLUTE AUTO 1.08 K/mm3 (0.84-5.20); LYMPHOCYTES PERCENT AUTO 17 % (21-46); MONOCYTES PERCENT AUTO 16 % (4-13); Mean Corpuscular HGB Conc 33.4 g/dL (31.5-36.5); Mean Corpuscular Volume 93 fL (80-100); Mean Platelet Volume 10.1 fL (9.1-12.4); NEUTROPHILS ABSOLUTE AUTO 4.06 K/mm3 (1.96-9.15); NEUTROPHILS PERCENT AUTO 65 % (41-73); Platelet Count 250 K/mm3 (150-400); RDW Coefficient Variation 13.2 % (11.7-14.2); RDW Standard Deviation 44.5 fL (35.1-46.3); White Blood Cell Count 6.27 K/mm3 (4.00-11.30)
[2021-10-10 06:05] LABS: Alanine Aminotransfer (ALT/SGP 18 U/L (12-78); Albumin, Blood 2.4 g/dL (3.4-5.0); Albumin/Globulin Ratio 0.6 (0.8-1.8); Alk Phos 111 U/L (50-136); Anion Gap 9 mmol/L (6-16); Aspartate Aminotrans (AST/SGOT 16 U/L (12-37); Bilirubin, Total 0.7 mg/dL (0.1-1.0); Blood Urea Nitrogen 42 mg/dL (8-24); Bun/Creatinine Ratio 49.5 (12.0-20.0); CO2, Blood 27 mmol/L (21-32); Calcium, Blood 9.7 mg/dL (8.5-10.1); Chloride, Blood 96 mmol/L (98-108); Creatinine, Blood 0.85 mg/dL (0.60-1.20); Globulin, Blood 3.9 g/dL (2.2-4.0); Glomerular Filtration Rate >60 (60-); Glucose, Blood 228 mg/dL (70-99); Potassium, Blood 4.3 mmol/L (3.5-5.5); Sodium, Blood 132 mmol/L (136-145); Total Protein, Blood 6.3 g/dL (6.4-8.2)
--- NOTE | 2021-10-10 13:21 | NUR ---
Asked pt if he had discussed his elevated blood glucose with anyone yet, and he reported that he knows his blood sugars are high and that he has T2DM. Pt was interested in discusing diabetes and dietary recommendations. Pt had some familiarity with DM, mentioning the pancreas and blood sugar as matthews aspects. Briefly educated patient on T2DM and insulin resistance. Pt was aware that sugar raises his blood glucose, so we discussed CHO sources and their impact on blood glucose. Discussed recommended CHO portions for meals and encouraged pt to look at CHO amt served on his meal trays to see what this looks like. Pt asked what his blood glucose was and what it should be. Shared targets and explained that blood glucose is typically elevated in hospital d/t stress and illness. Pt asked about long-term complications of diabetes. Shared complications of persistently elevated blood glucose. Pt was hearing much of this information for the first time, so he will likely need follow-up education. Decent compliance expected.
--- NOTE | 2021-10-11 03:20 | NUR ---
SHIFT SUMMARY: PATIENT A&OX4, ANXIOUS AT TIMES. WOUND CARE PERFORMED TO BLE. PATIENT WOULD NOT ALLOW DRESSING TO BE APPLIED OR LEGS TO BE WRAPPED STATING "IT IS TOO SENSITIVE NOTHING AND TOUCH THEM BUT AIR. PT REQUEST LEGS BE ELEVATED ON STOOL WITH PILLOW ON TOP TO PROVIDE CUSHION. PATIENT IS ABLE TO AJUST LEGS AND REMOVE THEM FROM STOOL INDEPENDENTLY. HE CANNOT TOLERATE HIS CALVES LAYING ON THE MATTRES OR PILLOWS. LACHYDRIN APPLIED TO DRY SKIN PER EMAR. NYSTATIN APPLIED TO GROIN AND PANNUS. CREAM TO BUTTOCKS BREAKDOWN IMPROVED SINCE LAST NIGHT. CONDOM CATH APPLIED TO ALLEVIATE MOISUTURE AND URINE ON SKIN DUE TO PATIENTS ONGOING INCONTINENCE. PT REPORTS FENTANLY WORKS BUT WEARS OFF QUICKLY AND PAIN NEVER GETS BELOW A 6. MD CONTACTED FOR PO PAIN MEDICATION. NEW ORDER OBTAINED AND ADMINISTERED. EDUCATED PATIENT ON USE OF PO OXYCODONE FIRST LINE OF PAIN RELIEF WHEN PAIN STARTS TO ELEVATE. PATIENT RECEPTIVE TO EDUCATION, STATED RELIEF WITH OXYCODONE, AND ABLE TO SLEEP. WCTM. LACHYDRIN APPLIED TO DRY SKIN PER EMAR.
[2021-10-11 05:10] LABS: Hematocrit 39.4 % (37.0-53.0); Hemoglobin 12.7 g/dL (13.5-17.5); Mean Corpuscular HGB 30.7 pg (26.0-34.0); Mean Corpuscular HGB Conc 32.2 g/dL (31.5-36.5); Mean Corpuscular Volume 95 fL (80-100); Mean Platelet Volume 10.1 fL (9.1-12.4); Platelet Count 237 K/mm3 (150-400); RDW Coefficient Variation 13.2 % (11.7-14.2); RDW Standard Deviation 45.9 fL (35.1-46.3); Red Blood Cell Count 4.14 M/mm3 (4.30-5.90); White Blood Cell Count 6.35 K/mm3 (4.00-11.30)
[2021-10-11 06:58] LABS: Alanine Aminotransfer (ALT/SGP 22 U/L (12-78); Albumin, Blood 2.4 g/dL (3.4-5.0); Albumin/Globulin Ratio 0.6 (0.8-1.8); Alk Phos 107 U/L (50-136); Anion Gap 10 mmol/L (6-16); Aspartate Aminotrans (AST/SGOT 18 U/L (12-37); Bilirubin, Total 0.4 mg/dL (0.1-1.0); Blood Urea Nitrogen 35 mg/dL (8-24); Bun/Creatinine Ratio 40.5 (12.0-20.0); CO2, Blood 28 mmol/L (21-32); Calcium, Blood 9.2 mg/dL (8.5-10.1); Chloride, Blood 97 mmol/L (98-108); Creatinine, Blood 0.87 mg/dL (0.60-1.20); Globulin, Blood 4.1 g/dL (2.2-4.0); Glomerular Filtration Rate >60 (60-); Glucose, Blood 276 mg/dL (70-99); Magnesium, Blood 1.9 mg/dL (1.6-2.4); Potassium, Blood 4.5 mmol/L (3.5-5.5); Sodium, Blood 135 mmol/L (136-145); Total Protein, Blood 6.5 g/dL (6.4-8.2)
[2021-10-11 16:45] LABS: International Normalized Ratio 1.19; Prothrombin Time Results 12.4 Sec (9.7-11.5)
--- NOTE | 2021-10-11 17:33 | NUR ---
PT AAOX4 ABLE TO MAKE NEEDS KNOWN. COMPLIANT TO MEDICATION REGIMEN, CONTINUES ON IV ABT. DRESSING DONE TO BLE, YAMIL NOTED. MD ASSESSED WOUND TODAY. PT MEDICATED NEEDED, WITH EFFECTIVE OUTCOME. PT HAS GOOD APETITE ATE 100% MEALS. BED IN LOWEST POSITION. CALL LIGHT IN REACH.
--- NOTE | 2021-10-12 06:17 | NUR ---
SHIFT SUMMARY: PATIENT IS STARTED ON A HEPARIN GTT AFTER KISHORERELSAVANNAH WAS DC'D BY MD LEARY. HEPARIN GTT IS NOW RUNNING AT 20 U/KG/HR, FOR APTT OF 46.7. HEPARIN GTT WAS STARTED LATE DUE TO LOSS OF IV ACCESS AT START OF SHIFT. INC. OF URINE, CONDOM CATH WOULD NOT STAY IN PLACE. DRSG'S TO [facility] ARE CD&I.
[2021-10-13 05:07] LABS: Hemoglobin 12.1 g/dL (13.5-17.5); Mean Corpuscular HGB 31.1 pg (26.0-34.0); Mean Corpuscular HGB Conc 33.6 g/dL (31.5-36.5); Mean Corpuscular Volume 93 fL (80-100); Mean Platelet Volume 9.6 fL (9.1-12.4); Platelet Count 223 K/mm3 (150-400); RDW Coefficient Variation 13.1 % (11.7-14.2); RDW Standard Deviation 43.9 fL (35.1-46.3); Red Blood Cell Count 3.89 M/mm3 (4.30-5.90); White Blood Cell Count 6.48 K/mm3 (4.00-11.30)
--- NOTE | 2021-10-13 05:21 | NUR ---
SHIFT SUMMARY: PATIENT IS RESISTANT TO REPOSITIONING AND REFUSED DRSG CHANGE MULTIPLE TIMES. PAIN IS WELL CONTROLED WITH PRN OXYCODONE AND IV FENTANYL WAS GIVEN X1 FOR ANTISIPATED DRSG CHANGE BUT PATIENT THEN REFUSED DRSG CHANGE AGAIN. VSS, BLOOD GLUCOSE WAS 233 AT HS, NO COVERAGE INDICATED PER SCALE.
[2021-10-13 06:13] LABS: Alanine Aminotransfer (ALT/SGP 22 U/L (12-78); Albumin, Blood 2.2 g/dL (3.4-5.0); Albumin/Globulin Ratio 0.6 (0.8-1.8); Alk Phos 98 U/L (50-136); Anion Gap 8 mmol/L (6-16); Aspartate Aminotrans (AST/SGOT 22 U/L (12-37); Bilirubin, Total 0.4 mg/dL (0.1-1.0); Blood Urea Nitrogen 21 mg/dL (8-24); Bun/Creatinine Ratio 30.7 (12.0-20.0); CO2, Blood 28 mmol/L (21-32); Calcium, Blood 9.2 mg/dL (8.5-10.1); Chloride, Blood 96 mmol/L (98-108); Creatinine, Blood 0.68 mg/dL (0.60-1.20); Glomerular Filtration Rate >60 (60-); Glucose, Blood 196 mg/dL (70-99); Potassium, Blood 4.3 mmol/L (3.5-5.5); Sodium, Blood 132 mmol/L (136-145); Total Protein, Blood 6.2 g/dL (6.4-8.2)
[2021-10-14 05:12] LABS: Hemoglobin 11.6 g/dL (13.5-17.5); Mean Corpuscular HGB 30.5 pg (26.0-34.0); Mean Corpuscular HGB Conc 32.2 g/dL (31.5-36.5); Mean Corpuscular Volume 95 fL (80-100); Mean Platelet Volume 9.8 fL (9.1-12.4); NRBC ABSOLUTE 0.04 K/mm3 (0.00-0.02); NRBC Auto 0.7 /100 WBC (0.0-0.2); Platelet Count 211 K/mm3 (150-400); RDW Coefficient Variation 13.3 % (11.7-14.2); RDW Standard Deviation 46.1 fL (35.1-46.3); White Blood Cell Count 5.99 K/mm3 (4.00-11.30)
[2021-10-14 06:16] LABS: Anion Gap 8 mmol/L (6-16); Blood Urea Nitrogen 18 mg/dL (8-24); CO2, Blood 28 mmol/L (21-32); Calcium, Blood 8.9 mg/dL (8.5-10.1); Chloride, Blood 95 mmol/L (98-108); Creatinine, Blood 0.62 mg/dL (0.60-1.20); Glomerular Filtration Rate >60 (60-); Glucose, Blood 233 mg/dL (70-99); Potassium, Blood 4.4 mmol/L (3.5-5.5); Sodium, Blood 131 mmol/L (136-145)
--- NOTE | 2021-10-14 07:31 | NUR ---
SHIFT SUMMARY: PATIENT SLEPT WELL THIS SHIFT AND PAIN LEVEL HAS BEEN TOLERABL WITH ONLY SCHEDULED LYRICA AND ROBOXIN. BLOOD GLUCOSE AT HS WAS 213 REQUIRING NO COVERAGE PER SCALE. PATIENT REQUESTED SNACK, EDUCATION WAS GIVEN AND PATIENT CHOSE CHEESE AND CRACKERS. PATIENT DID REQUEST ADDITIONAL SNACKS BUT AGREED ONE SNACK WAS ENOUGH.
--- NOTE | 2021-10-14 18:32 | NUR ---
SHIFT SUMMARY PT REMAINS AAOX 4, ABLE TO MAKE NEEDS KNOWN. CONTINUES ON IV ABT, NO ADV.REACTION NOTED. COMPLIANT TO MEDICATION REGIMEN. CALL LIGHT IN REACH, USED APPROPRIATELY. BED IN LOWEST POSITION. DRESSING DONE TO BLE, LESS DRAINAGE NOTED AND PT TOLERATED WELL THEN BEFORE.
[2021-10-15 05:33] LABS: Hematocrit 36.1 % (37.0-53.0); Hemoglobin 11.6 g/dL (13.5-17.5); Mean Corpuscular HGB 31.4 pg (26.0-34.0); Mean Corpuscular HGB Conc 32.1 g/dL (31.5-36.5); Mean Corpuscular Volume 98 fL (80-100); Mean Platelet Volume 9.9 fL (9.1-12.4); NRBC ABSOLUTE 0.05 K/mm3 (0.00-0.02); NRBC Auto 0.8 /100 WBC (0.0-0.2); Platelet Count 202 K/mm3 (150-400); RDW Standard Deviation 49.1 fL (35.1-46.3); Red Blood Cell Count 3.69 M/mm3 (4.30-5.90); White Blood Cell Count 6.62 K/mm3 (4.00-11.30)
[2021-10-15 05:58] LABS: Alanine Aminotransfer (ALT/SGP 22 U/L (12-78); Albumin, Blood 1.9 g/dL (3.4-5.0); Albumin/Globulin Ratio 0.5 (0.8-1.8); Alk Phos 87 U/L (50-136); Anion Gap 7 mmol/L (6-16); Aspartate Aminotrans (AST/SGOT 24 U/L (12-37); Bilirubin, Total 0.3 mg/dL (0.1-1.0); Blood Urea Nitrogen 21 mg/dL (8-24); Bun/Creatinine Ratio 30.1 (12.0-20.0); CO2, Blood 29 mmol/L (21-32); Calcium, Blood 8.6 mg/dL (8.5-10.1); Chloride, Blood 96 mmol/L (98-108); Globulin, Blood 3.6 g/dL (2.2-4.0); Glomerular Filtration Rate >60 (60-); Glucose, Blood 126 mg/dL (70-99); Potassium, Blood 4.5 mmol/L (3.5-5.5); Sodium, Blood 132 mmol/L (136-145); Total Protein, Blood 5.5 g/dL (6.4-8.2)
--- NOTE | 2021-10-15 06:03 | NUR ---
SHIFT SUMMARY: PATIENT CONTINUES TO REPORT INTERMITTENT STABING PAIN IN BLE. REQUIRING ONLY TWO DOSES OF PRN OXYCODONE FOR EFFECTIVE PAIN RELIEF. BG @ HS WAS 117, HS SNACK WAS GIVEN. PATIENT HAS BEEN RECEPTIVE TO DIABETIC DIET EDUCATION AND HAS MADE GOOD SNACK CHOICES THIS SHIFT. DRSG'S TO [facility] ARE CD&I.
--- NOTE | 2021-10-15 18:36 | NUR ---
PATIENT A/OX4, CURRENTLY BEDBOUND. VSS, ON RA. WOUNDS TO LEGS, DRESSINGS CHANGED X1 THIS SHIFT. PRESSURE SORE TO R HEEL, FOAM DRESSING PLACED TO PROTECT AND HEELS FLOATED. REPORTS "NEVER PAIN" THAT COMES AND GOES AND GETS BAD AN 8/10 AT TIMES. MEDICATING WITH SCHEDULED MEDS AND FENTANYL AND OXYCODONE FOR BREAKTHROUGH. INCONTIENT OF URINE/STOOL. TURNING Q2 HOURS. ACHS BLOOD SUGARS, TOLERATING ADA DIET. AWAITING TRANSFER TO [facility] FOR A REPLACEMENT OF HIS IVC FILTER. CALM AND COOPERATIVE WITH CARE, ABLE TO MAKE NEEDS KNOWN.
--- NOTE | 2021-10-16 04:21 | NUR ---
SHIFT SUMMARY ADMITTED FOR CELLULITIS. FULL CODE. CELLULITIS/WOUNDS ON BLE. PLAN IS FOR DC TO [facility] FOR ILEOCAVAL RECONSTRUCTION WHEN BED IS AVAILABLE. IVC FILTER IN PLACE. NUMEROUS THROMBI FOUND. IV ANTIB RX ARE SCHEDULED. PT CALLS FREQUENTLY FOR SNACKS AND FLUIDS. HX OF MASSIVE PE & DVT'S. ON XARELTO. WAS FROM [facility], [facility].
--- NOTE | 2021-10-16 20:21 | NUR ---
SHIFT SUMMARY: C/O CONSTIPATION AND "PAIN IN MY ANUS", ALONG WITH PAIN IN BLE; MEDICATED PER EMAR. GAVE ADDITIONAL STOOL SOFTENERS AND LAXATIVES ORDERED, ALSO GAVE SUPPOSITORY WITH GOOD RESULT. HAS POOR BED MOBILITY, REFUSES TO CHANGE POSITION. INCONTINENT OF BLADDER, ATTEMPTS TO USE URINAL. FRIEND VISITED TODAY, BROUGHT PATIENT FOOD FROM [facility]. AWAITING TRANSFER TO [facility] FOR ILEOCAVAL RECONSTRUCTION.
--- NOTE | 2021-10-17 05:03 | NUR ---
SHIFT SUMMARY 76 YR M ADMITTED ON 10/11/21 FOR CELLULITIS. FULL CODE. PT IS BED BOUND AND HAS GREAT DIFFICULTY MOVING IN BED. SEVERE CELLULITIS ON BLE THAT IS BANDAGED. PT C/O PAIN IN BLE. HE C/O CONSTIPATION AND WAS GIVEN A SUPPOSITORY BY DAY SHIFT THIS A.M. HE HAS SINCE HAD A VERY LARGE BOWEL MOVEMENT AND STATES THAT HE FEELS BETTER. PT IS HARD OF HEARING AND CAN BE VERY LOUD VERBALLY AT TIMES. HE YELLS OUT WHEN HE IS UPSET. PLAN IS FOR TRANSFER TO [facility] FOR AN IVC FILTER REPLACEMENT ONCE A BED BECOMES AVAILABLE.
--- NOTE | 2021-10-17 06:04 | NUR ---
WOUND CARE ON LOWER BILATERAL EXTREMITIES. BOTH LEGS HAD SMALL AMOUNTS OF FRESH BLOOD. WOUNDS CLEANSED WITH SKINTEGRITY WOUND CLEANSER AND COVERED WITH ABD PADS AND WRAPPED W/ GAUZE. PT TOLERATED WELL.
--- NOTE | 2021-10-17 17:19 | NUR ---
Wound care recommendation; Discontinue silvadene. Cleanse BLE with dermal wound, rinse NS. Apply xeroform to open wounds posterior BL lower legs and R heel. cover with ABD, secure with rolled gauze. Change daily. Refer to WC on discharge for edema and wound management.
--- NOTE | 2021-10-17 18:06 | NUR ---
SUMMARY PT SITTING UP IN BED EATING DINNER, PT HAS BEEN VERY TALKATIVE TODAY, PLEASANT AND COOPERATIVE T/O THE DAY, MED PER EMAR FOR PAIN, WOUND CENTER NURSE CAME TO SEE THE PT THIS AFTERNOON AND CHANGED THE BANDAGES ON HIS LEGS, SHE STATED SHE WILL CHANGE THE ORDER TO XEROFORM OVER THE OPEN AREAS AND COVER WITH AN ABD AND KERLIX, PT VINCE WELL, STILL AWAITING A BED AT [facility], S, WILL CONT TO MONITOR
--- NOTE | 2021-10-18 06:00 | NUR ---
SHIFT SUMMARY: PATIENT CONTINUES TO REPORT BURNING PAIN IN R HEEL AND GENERALIZED BODY PAIN. OXYCODONE AND IV FENTANYL GIVE EFFECTIVE PAIN CONTROL. VSS. DRSG'S TO [facility] ARE CD&I. PATIENT IS YELLING OUT THIS SHIFT AND IS IRRITABLE.
--- NOTE | 2021-10-18 17:08 | NUR ---
SUMMARY PT AWAKE IN BED WATCHING TV, PT HAS BEEN COOPERATIVE WITH CARE, CALLS FREQUENTLY FOR MANY MANY NEEDS AND REQUESTS, PT HAD A VERY LARGE BM ON THE BEDPAN TODAY, OFFERED TO CHANGE THE BLE DRESSINGS MULTIPLE TIMES, PT INSISTENT THAT THE WOUND CARE NURSE WILL BE UP TO CHANGE THE DRESSINGS, WRAP HAS BEEN REINFORCED, NO OBVIOUS DRAINAGE, PT MED PER EMAR FOR C/O PAIN, VSS, WILL CONT TO MONITOR
--- NOTE | 2021-10-19 06:04 | NUR ---
SHIFT SUMMARY: PATIENT IS IS RESTLESS IN THE BED TONIGHT, ASSISTED TO A DANGLING POSITION AND TOLERATED ACTIVITY WELL. CONTINUES TO REPORT RIGHT FOOT AND GENERALIZED PAIN 8-10/10. ORAL OXYCODONE X2 AND IV FENTANYL X1 FOR BREAKTHROUGH PAIN PROVIDED GOOD PAIN CONTROL. BLOOD GLUCOSE @ HS WAS 110, SNACK WAS GIVEN AND PATIENT TOLERATED 100%
--- NOTE | 2021-10-19 17:43 | NUR ---
SHIFT SUMMARY PATIENT IS ALERT AND ORIENTED X3. PATIENT HAS BEEN CALLING FREQUENTLY FOR MANY NEEDS AND REQUESTS. PATIENT HAS BEEN AWAKE AND HAS REQUESTED PAIN MEDICATION AND MEDICATED PER EMAR. OFFERED TO CHANGE DRESSINGS AND PATIENT DEFFERED TO WOUND NURSE TO CHANGE. VITAL SIGNS REVIEWED. WRAPS ARE IN PLACE AND INTACT. NO ACUTE EVENTS THIS SHIFT. BED IN LOCKED AND LOWEST POSITION. CALL LIGHT IN PLACE. WILL MONITOR UNTIL SHIFT CHANGE
--- NOTE | 2021-10-20 09:39 | NUR ---
PATIENT IS IN [facility] BED. DUE TO HIS BODY HABITUS, HE IS UNABLE TO REPOSITION HIMSELF OR ASSIST STAFF IN REPOSITIONING. REQUEST MADE TO LASER BEAM CUTTER TO MOVE PATIENT TO ROOM WITH CEILING LIFT SO PATIENT CAN GET OOB TO CHAIR, AND TO BE TRANSFERRED TO BARIATRIC BED SO HE CAN HAVE BETTER BED MOBILITY AND PARTICIPATE IN HIS CARE. PLAN IS PENDING.
--- NOTE | 2021-10-20 14:43 | NUR ---
PATIENT TRANSFERRED VIA HIS BED TO BARIATRIC BED IN ROOM 364, WHERE THERE IS A CEILING LIFT. REPORT GIVEN TO Shanell CARTER RN.
--- NOTE | 2021-10-20 15:24 | NUR ---
RECIEVED PT TO ROOM 364. PT CALL OUT CONSTANTLY GRUNTS A LOT MOVING IN BED. PT TALKS VERY LOUD AND REQUEST THINGS CONSTANTLY. CALL LIGHT IS WITHIN REACH WILL CONTINUE TO MONITOR.
--- NOTE | 2021-10-20 17:21 | NUR ---
PT AOX3 AND COOPERATIVE OF CARE. PT USES CALL LIGHT FREQUENTLY AND CONSTANTLY REQUEST DRINKS. PT IS ON AIR BED AND WILL AT TIMES USE URINAL AND OTHER TIMES BE INCONTENT. PT HAS CALL LIGHT WITHIN REACH AND BED ALARM IN PLACE. WILL CONTINUE TO MONITOR.
--- NOTE | 2021-10-21 07:06 | NUR ---
PT IS ALERT AND ORIENTED X4. AWAKE FOR MOST OF THE NIGHT. PAIN WAS TREATED THROUGH THE NIGHT; FENTANYL ONCE AND PILLS PILL. PT HEELS FLOATING OVER PILLOWS. BUTTOCK IS INTACT. URINE IS VERY DARK/BROWNISH WITH NO FOUL ODOR.
--- NOTE | 2021-10-21 17:34 | NUR ---
PT AOX3 AND COOPERATIVE OF CARE. PT CONTINUES TO USE CALL LIGHT FREQUENTLY EVEN THOUGH ALL PT'S NEEDS HAVE BEEN CARED FOR. PT IS ON AIR BED AND REPORTS THIS BEING MUCH BETTER TO SLEEP IN. BED ALARM IS IN PLACE AND CALL LIGHT WITHIN REACH WILL CONTINUE TO MONITOR.
--- NOTE | 2021-10-22 05:32 | NUR ---
PATIENT WAS ALERT AND ORIENTED X3, STABLE VITAL SIGNS, NO ACUTE CHANGES. PAIN DENIED ANY PAIN. PATIENT WAS VERY DEMANDING BUT HIS NEEDS WHERE MEANT. PATIENT SLEPT OFF AND ON THROUGH THE NIGHT. CALL LIGHT WITH IN REACH AND BED DOWN TO THE LOWEST POSITION. WILL CONTINUE TO MONITOR UNTIL HAND OFF.
--- NOTE | 2021-10-22 17:56 | NUR ---
PATIENT IS ALERT AND ORIENTED AND COOPERATIVE WITH CARE. C/O PAIN, MEDICATED PER EMAR. BEDREST, PATIENT CAN PULL HIMSELF UP IN BED. PLAN IS TO DISCHARGE TO SNF AND TO THEN GO TO [facility] FOR THE IVC FILTER PROCEDURE AN OUTPATIENT. PATIENT HAD A BEDBATH TODAY. WILL CONTINUE TO MONITOR
--- NOTE | 2021-10-23 06:15 | NUR ---
PATIENT WAS ALERT AND ORIENTED X3,STABLE VITAL SIGNS, NO ACUTE CHANGES. PATIENT WAS VERY DEMANDING AND SLEPT OFF AND ON THROUGH THE NIGHT. PATIENT COMPLAINED OF PAIN AND WAS TREATED WITH OXYCODONE AND FENTANYL ON TWO DIFFERENT OCCASIONS. CALL LIGHT WITH IN REACH AND BED DOWN TO THE LOWEST POSITION. WILL CONTINUE TO MONITOR UNTIL HAND OFF.
--- NOTE | 2021-10-23 17:37 | NUR ---
SHIFT SUMMARY: PT A/O X 3, PLEASANT AND COOPERATIVE WITH CARES. PT PAIN MANAGED WITH PRN OXYCODONE AND SCHEDULED MEDICATIONS. HE DID REQUIRE FENTANYL 50 MCG ONE TIME DOSE FOR PAIN TO SHOULDERS. WOUND CARE COMPLETED PER ORDERS, LOTION APPLIED TO LOWER EXTREMITIES. PT DOES HAVE OCCASIONAL NON PRODUCTIVE COUGH T/OUT THE DAY.
--- NOTE | 2021-10-24 05:59 | NUR ---
PATIENT WAS ALERT AND ORIENTED X3, STABLE VITAL SIGNS, NO ACUTE CHANGES. PATIENT COMPAINED OF PAIN AND WAS TREATED FOR IT. PATIENT DID NOT SLEEP MUCH AT NIGHT. CALL LIGHT WITH IN REACH AND BED DOWN TO THE LOWEST POSITION. WILL CONTINUE TO MONITOR UNTIL HAND OFF.
[2021-10-24 13:02] LABS: Adenovirus Not Detected (NOT DETECT); Bordetella pertussis Not Detected (NOT DETECT); Chlamydophila pneumoniae Not Detected (NOT DETECT); Coronavirus 229E Not Detected (NOT DETECT); Coronavirus HKU1 Not Detected (NOT DETECT); Coronavirus NL63 Not Detected (NOT DETECT); Coronavirus OC43 Not Detected (NOT DETECT); Human Metapneumovirus Not Detected (NOT DETECT); Human Rhinovirus/Enterovirus Not Detected (NOT DETECT); Influenza A/2009-H1 Not Detected (NOT DETECT); Influenza A/H1 Not Detected (NOT DETECT); Influenza A/H3 Not Detected (NOT DETECT); Influenza B Not Detected (NOT DETECT); Mycoplasma pneumoniae Not Detected (NOT DETECT); Parainfluenza Virus 1 Not Detected (NOT DETECT); Parainfluenza Virus 2 Not Detected (NOT DETECT); Parainfluenza Virus 3 Not Detected (NOT DETECT); Parainfluenza Virus 4 Not Detected (NOT DETECT); Respiratory Syncytial Virus Not Detected (NOT DETECT); SARS-Cov-2 (COVID-19), BioFire Detected (NOT DETECT)
--- NOTE | 2021-10-24 13:15 | NUR ---
PT TESTED POSITIVE FOR COVID. PLACED IN ENHANCED ISO PRECAUTIONS. DR. ALC[place]ARA AND AIR QUALITY SPECIALIST NOTIIFIED OF RESULT. PT HAS SLIGHT NON PRODUCTIVE WET COUGH AT THIS TIME. HE IS OTHER LIZ ASYMPTOMATIC.
--- NOTE | 2021-10-24 18:20 | NUR ---
Shift Summary Patients intermittent cough continued this am, so Covid testing was complete and is positive. He is on ISOLATION, with an order for Continuous Pulse Ox monitoring. Patient is aware of his diagnosis. He understands that his door should be shut and is accepting of these changes. Patient is eating meals and voiding. Pain ratings are per his normal. Patient plans to speak to the doctor about reinstating a narcotic that was DC yesterday. Patients Right ankle wound was cleaned, dressing changed. Images wounds on bilateral ankles were taken. The open area on the coccyx appears to be healing nicely, with little open area left to assess. monitoring
--- NOTE | 2021-10-25 05:34 | NUR ---
PATIENT WAS ALERT AND ORIENTED X3, STABLE VITAL SIGNS, NO ACUTE CHANGES.PATIENT COMPLAINED OF PAIN AND WAS TREATED FOR IT. PATIENT SLEPT FOR MOST THE NIGHT. CALL LIGHT WITH WITH IN REACH AND BED DOWN TO THE LOWEST POSITION. WILL CONTINUE TO MONITOR UNTILL HAND OFF.
--- NOTE | 2021-10-25 16:24 | NUR ---
Responded to a direct call from pt. (through switchboard) requesting a pneumatic tester. Pt. was lying in bed and alert. Established rapport. Pt. has had a history with the hospital. Pt. was unsettled by hospitalization, concerned about bedside manner of one of his caregivers. Listened empathetically. Facilitated a life review. Pt. displayed evidence of trust and respect. Explored tyler and belief, prayed with pt. Will monitor for further action.
--- NOTE | 2021-10-25 17:59 | NUR ---
SHIFT SUMMARY ' PT HAS BEEN CALLING FREQUENTLY FOR RANDOM ITEMS LIKE ALCOHOL WIPES, PAPER CLIPS, PENCILS AND OTHER THINGS. HE HAS BEEN REQUSTING PAIN MEDS ON SCHEDULE. HE IS IS VERY INAPPROPPRIATE TOWARDS FEMALE STAFF MEMEBERS DESPITE MULTIPLE WARNINGS TO BEHAVE APPROPRIATEL AND THREATENED TO CONTINUE TO WET HIMSELF TODAY IF HIS NEEDS WERE NOT ME IMMEDIATELY. HE IS IN A BRIEFAS HE HAD BEEN NEGLECTING TO USE HIS MANY URINALS AND INSTEAD CHOSE TO PEE INTO A CLUMP OF PILLOWCASES HE REMOVED FROM THE PILLOWS. HE IS STILL WAITING FOR PLACEMENT. WILL CONTINUE TO MONITOR.
--- NOTE | 2021-10-26 07:20 | NUR ---
SHIFT SUMMARY PATIENT ALERT AND ORIENTED. MEDICATED PER EMAR FOR PAIN. HAD NO COMPLAINTS OF SHORTNESS OF BREATH. NO ACUTE ISSUES NOTED OVERNIGHT. CALL LIGHT WITHIN REACH. REPORT GIVEN TO ONCIMING RN.
--- NOTE | 2021-10-26 16:02 | NUR ---
Pt. was alert and laying in bed. Welcomed my visit. Pt. had been unsettled about care he received. Earlier in the day a Patient Advocate was contacted. Verified that PA had followed up with pt. Listen empathetically. Pt. gave evidence of agreement to the steps and direction given by PA. Visit interrupted by multipple trauma calls. Prayed with pt. Will follow up before end of shift as pt. seems to want to talk about tyler and belief.
--- NOTE | 2021-10-26 17:42 | NUR ---
PATIENT IS ALERT AND ORIENTED X4. PATIENT HAS CONSTANTLY ASKED FOR LITTLE THINGS THROUGHOUT THE SHIFT. PATIENT HAS BEEN BETTER MANNORED THIS SHIFT THAN IN PREVIOUS REPORTS. PATIENT HAS BEEN CONTINENT OF URINE AFTER BEING WARNED NOT TO INTENTIONALLY URINATE IN BED. PATIENT IS A PLACEMENT ISSUE. NO ACUTE ISSUES THIS SHIFT. BED IN LOCKED AND LOWEST POSITION. CALL LIGHT IN PLACE. WILL MONITOR THIS SHIFT.
--- NOTE | 2021-10-27 08:45 | NUR ---
SHIFT SUMMARY; AOX3, [facility]. DRESSING TO LEFT FOOT INTACT, REPORTED PAIN OFF AND ON THIS SHIFT. MEDICATED ONLY ONCE PRIOR TO BED. DID NOT ASK FOR PAIN MEDS TILL SHIFT CHANGE. SLEPT GOOD PORTION OF THE NIGHT. VS WNL, AFEBRILE. AWAITING PLACEMENT, AND TRANSFER. NO ACUTE CHANGES OCCURRED. CALL LIGHT IN REACH.
--- NOTE | 2021-10-27 18:34 | NUR ---
SHIFT SUMMARY: NO ACUTE CHANGES. PATIENT REMAINS ON ROOM AIR, DRY COUGH AT TIMES. VITAL SIGNS STABLE. DRINKING LOTS OF FLUIDS AND EATING WELL. Q2 TURNING AND NEEDED. RIGHT FOOT ULCER CLEANED AND DRESSED THIS AFTERNOON. PATIENT HAD BOWEL MOVEMENT THIS EVENING. TAKING PILLS WHOLE WITH WATER. DENIES NEEDS AT THIS TIME. WILL CONTINUE TO MONITOR AND REPORT OFF.
--- NOTE | 2021-10-28 06:23 | NUR ---
SHIFT SUMMARY NO ACUTE CHANGES TO REPORT THIS SHIFT. PT COVID SYMPTOMS REMAIN MILD AND HE REMAINS ON RA. OCCASIONAL PRODUCTIVE COUGH. VITALS ARE STABLE. PT USES URINAL INDEPENDENTLY. PT USES CALL LIGHT FREQUENTLY TO REQUEST VARIOUS THINGS FROM STAFF, LIKE EXTRA PILLOWS, GOWNS AND SNACKS. PT REMINDED SEVERAL TIMES THAT HE HAVE TO LIMIT THE AMOUNT OF TIMES WE ARE IN HIS ROOM TO DECREASE RISK OF EXPOSURE. I MENTIONED HOW IMPORTANT IT IS FOR STAFF TO CLUSTER CARE AND IF THERE IS ANYTHING NON URGENT THAT HE NEEDS THAT HE NEED TO LET US KNOW THAT WHILE WE ARE IN THE ROOM SO THAT WE CAN BRING EVERYTHING IN AT ONE TIME. DESPITE THIS PT CONTINUED TO USE CALL LIGHT FREQUENTLY REQUESTING THINGS FROM STAFF NUMEROUS TIMES. PT MEDICATED FOR PAIN PRN PER EMAR. NO OTHER CHANGES TO REPORT. PLAN OF CARE REMAINS UNCHANGED. BED IN LOWEST POSITION, CALL LIGHT WITHIN REACH.
--- NOTE | 2021-10-28 18:00 | NUR ---
SHIFT SUMMARY PT IS AOX4; CALLS APPROPRIATELY. PT IS A COVID POSITIVE. PT HAS BLE EDEMA; CREAM APPLIED AND PT HAS ULCER ON R HEEL; DRESSING INTACT. MEDICATED FOR PAIN MULTIPLE TIMES TODAY; PT C/O GENERAL PAIN. AWAITS FOR PLACEMENT. BED IS IN THE LOWEST POSITION AND CALL LIGHT WITHIN REACH.
--- NOTE | 2021-10-29 05:20 | NUR ---
NO CHANGES PER OUTGOING RN DESCRIPTIONS. PATIENT WAS AWAKE MOST OF NIGHT. CALLED FREQUENTLY WITH MULTIPLE NEEDS EACH TIME STAFF ENTERED THE ROOM. AT ONE POINT, HAVING SPILLED A URINAL IN THE BED, IT TOOK 4 STAFF USING THE CEILING LIFT TO CLEAN THE BED AND THE PATIENT. HOPEFULLY, PATIENT FIND A WAY TO BE MOTIVATED TOSTART HEALING
--- NOTE | 2021-10-29 13:08 | NUR ---
Patient is lying in bed and alert. 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 Patient then talks at length about his spiritual journey and his combination Worship and Mormon. I answer theological questions and discuss about how one can know true peace. Patient speaks about the two times in life when he was at his lowest points and about his personal inner struggles that began as a young child and has haunted him his whole life. We explore sources of meaning, purpose and value and how patient's spiritual life can bring wholeness to some of the damaged areas of his heart and mind. I normalize patient's experience, reinforce helpful attitudes and practices, reaffirm his value and uniqueness and provide gentle certified alcohol counselor, theological insights and prayer. Patient responds well and shows signs of catharsis and increased peace. I will continue to assist patient in his spiritual journey especially in the areas of coping with significant medical issues.
--- NOTE | 2021-10-29 17:16 | NUR ---
SHIFT SUMMARY PT AOX4; A LIFT PT AND CALLS MOST OF THE TIME. PT MEDICATED FOR PAIN SEVERAL TIMES; WORKED WITH PHYSICAL THERAPIST THIS AM. PT WOUND DRESSING ON HIS RIGHT HEEL CHANGED TODAY INTACT AND DRY. AWAITS FOR PLACEMENT. BED IS IN THE LOWEST POSITION AND CALL LIGHT WITHIN REACH
--- NOTE | 2021-10-30 04:01 | NUR ---
SHIFT SUMMARY A/O X3. VSS. VOIDING WELL. TOLDERATING PO INTAKE. DID NOT REST MUCH THROUGHOUT THE NIGHT. PAIN MANAGED WITH PO PAIN MEDICATIONS. PLAN FOR SNF DISCHARGE WHEN PLACEMENT FOUND. WILL CONTINUE TO MONITOR AND REPORT TO ONCOMING RN.
--- NOTE | 2021-10-30 14:20 | NUR ---
Pt. was alert and reclining in bed. Pt. welcomed my visit. Re-established rapport, and took an inventory on what had happened over the weekend in his life. Pt. seemed unsettled but open to discuss matters of tyler. Facilitated a discussion regarding tyler and belief. Pt. told stories of his upbringing. Listened empathetically. Pt. displayed evidence of comprehension, but remained guarded to what I shared. Pts. energy level began to fade, so I agreed to return later in day or the following day. Prayed with pt.
--- NOTE | 2021-10-30 17:17 | NUR ---
SHIFT SUMMARY PT AxOx-4 WITH INTERM CONFUSION. 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 REPORTS NO BM x4 DAYS. BOWEL CARE GIVEN. PT REPORTS PAIN IN SHOULDERS. MEDICATED PER EMAR. DRESSING ON RLE C/D/I. POWERGLIDE ON SWETHA REDRESSED THIS SHIFT. PT AND OT WORKED WITH PATIENT TODAY. RECOMMEND RECLINER TO HELP INCREASE PATIENT MOBILITY. PT IS CURRENTLY RESTING IN BED WITH CALL LIGHT IN REACH. DENIES ANY NEEDS AT THIS TIME.
--- NOTE | 2021-10-31 05:02 | NUR ---
SHIFT SUMMARY AOX3. HOWEVER MORE DROWSY THIS AM & HAVING NONSENSICAL RESPONSES. VSS. REPORTS 8/ PAIN BILAT SHOULDERS MEDICATED 1X c ULTRAM, WILL MONITOR FOR EFFECTIVENESS. R HEEL HAS ULCER, DRESSING C/D/I. CALL LIGHT IN REACH. AWAITING SNF PLACEMENT.
--- NOTE | 2021-10-31 18:04 | NUR ---
SHIFT SUMMARY PATIENT IS ALERT AND ORIENTED X3. PATIENT HAS BEEN PLEASENT BUT HAS CONSISTANTLY USING HIS CALL LIGHT FOR A LOT OF REQUESTS. PATIENT HAS NO COMPLAINTS OF SOB, NAUSEA, VOMITTING. PATIENT HAS COMPLAINED OF SHOULDER PAIN AND MEDICATED PER EMAR. NO ACUTE ISSUES THIS SHIFT. VITAL SIGNS REVIEWED. WILL MONITOR UNTIL POWER GENERATION EQUIPMENT REPAIRER.
--- NOTE | 2021-10-31 18:46 | NUR ---
Pt. was alert and sitting in the chair. Re-established rapport. Facilitated a long life review. Pt. displayed evidence of trust and acceptance. Pt. verbalized his interest in fiath. Explored tyler and beliefs. 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 Pt. verbalized gratitude for the cathartic memories he was able to share.
--- NOTE | 2021-11-01 05:33 | NUR ---
PATIENT COVID +. RIGHT HEEL CELLULITIS. HAS GROWTH NEAR INSIDE OF LEFT ANKLE. SCROTAL SWELLING AND REDNESS. EXTENBSIVE HISTORY INCLUDING DVT AND PE. USES CEILING LIFT AND SLING SO HE CAN BE MOVED TO BEDSIDE CHAIR. IS IN CONSTANT PAIN. AWAITING APPROVAL FROM A SNF FOR PLACEMENT.
--- NOTE | 2021-11-01 12:27 | NUR ---
DRESSING CHANGED RIGHT HEEL. AREA DRY AND SCALY. MINIMAL REDNESS. XEROFORM AND FOAM HEEL PROTECTOR APPLIED. TOLERATED WELL.
--- NOTE | 2021-11-01 14:10 | NUR ---
Pt. was sitting up in chair having just finished lunch. Re-established rapport. Pt. has had a long LOS. Pt. inquired about the resource I gave him to read. I assured him it was a gift. Facilitated more life review. Pt. verbalized he was getting tired, and displayed evidence of it. Prayed with Pt. Pt. has potential discharge lining up.
--- NOTE | 2021-11-01 17:32 | NUR ---
PATIENT MEDICATED FOR PAIN MULTIPLE TIMES TODAY. PATIENT WAS UP IN THE CHAIR VIA LIFT AND WORKED WITH THERAPY. PATIENT HAD MULTIPLE REQUESTS THROUGHOUT THE DAY AND USES HIS CALL LIGHT FREQUENTLY. PATIENT IS PLEASANT AND COOPERATIVE WITH CARE. WILL CONTNUE TO MONITOR. CARE MANAGEMENT WORKING ON A SAFE DISCHARGE PLAN.
--- NOTE | 2021-11-01 23:49 | NUR ---
MULTIPLE REQUESTS FOR ASSISTANE AND PAIN MEDS. VOICED CONSTIPATION X 3 DAYS. MED ICATIONS GIVEN BUT STILL HAVING DIFFICULTIES. CALL PLACED TO MD [facility] COURTESY CLERK AND ORDER FOR FLEETS ENEMA OBTAINED. ENEMA GIVEN, LARGE FORMED STOOL RESULTS. CALL LIGHT IN REACH
--- NOTE | 2021-11-02 03:33 | NUR ---
FACILITIES OFFICER SUMMARY AWAKE AT SHIFT COMMENCE, MAKING MULTIPLE CALLS AND REQUESTS FOR STAFF ATTENTION. SOME WERE FOR PAIN MEDS AND OTHERS WERE FR C/O CONSTIPATION. STOOL MEDICATIONS WERE NOT EFFECTIVE AND CALL WAS PLACED TO WILDLIFE VETERINARIAN MD FOR ENEMA. ENEMA GIVEN AND RESULTS WERE VERY EFFECTIVE. LARGE BM. MADE A FEW REQUESTS AFTER THAT BUT EVENTUALLY APPEARED TO G TO SLEEP. RESTING QUIETLY AT THIS TIME. NO C/O VOICED. ISOLATION PRECAUTIONS MAINTAINED. FLUIDS ENCOURAGED. CALL LIGHT IN REACH
--- NOTE | 2021-11-02 17:15 | NUR ---
PLEASANT AND COOPERATIVE WITH ALL CARE. SPENT ALOT LESS TIME USING THE CALL LIGHT TODAY. COMPLAINTS OF PAIN AND A MIGRAINE HEADACHE MEDICATED PER E-MAR. SITTING IN CHAIR CURRENTLY AFTER USE OF ROOM LIFT. WILL CONTINUE TO MONITOR.
--- NOTE | 2021-11-03 06:37 | NUR ---
PT SITTING UP IN BED. CONTINUES TO USE URINAL. TOLERATING DIET. WAS IN CHAIR AT BEGGINING OF SHIFT. CONTINUES OXYCODONE AND TRAMADOL FOR PAIN. DRSG TO RIGHT HEEL INTACT. POWERGLIDE TO LEFT ARM IN PLACE. BILAT LOWER EXT DRY, FLAKY, AND DISCOLORED. CONTINUE PLAN OF CARE.
--- NOTE | 2021-11-03 17:20 | NUR ---
PATIENT WAS PLEASEANT, COOPERATIVE AND BARELY USED THE CALL LIGHT TODAY. C/O PAIN WERE MEDICATED PER E-MAR. SAT IN A CHAIR A LARGE PART OF THE DAY AND A PT THERAPY SESSION WELL. VS STABLE. WILL CONTINUE TO MONITOR.
--- NOTE | 2021-11-04 04:12 | NUR ---
SHIFT SUMMARY PATIENT HAD NO ACUTE CHANGES OBSERVED. AXOX 3 AND BEDREST. LIFT USE TO PLACE PATIENT FROM CHAIR BACK INTO BED. DOES NOT ALWAYS FOLLOW DIRECTIONS. PUSHES CALL LIGHT MULTIPLE TIMES WHEN CALL LIGHT HAS ALREADY BEEN ACKNOWLEDGED. USES URINAL AT BEDSIDE. POWERGLIDE SWETHA INTACT. REPORTS SHOULDER PAIN AND COVERED WITH ULTRAM 50 MG AND OXYCODONE 5 MG PER EMAR. REPORTED MIGRAINE AND ASKED FOR ASPIRIN PER EMAR. REPORTS ASPIRIN HELPS OVER OXYCODONE. ISOLATION PRECAUTIONS FOR COVID 19+. CALL LIGHT IN REACH. BED IN LOWEST POSITION. WILL CONTINUE TO MONITOR UNTIL DAY SHIFT NURSE ASSUMES CARE.
--- NOTE | 2021-11-04 19:17 | NUR ---
SHIFT SUMMARY PT AXO, PLEASANT AND COOPERATIVE WITH CARE. VSS. MEDICATED FOR PAIN PER EMAR. BED BATH THIS SHIFT. IN ISOLATION FOR COVID, PT HAS MINIMAL DRY COUGH, NONPRODUCTIVE. 91% ON RA. NO ACUTE CHANGES THIS SHIFT. BED IN LOW POSITION, CALL LIGHT WITHIN REACH. PATIENT CALLS FREQUENTLY ON THE CALL LIGHT. EDUCATED TO PUSH THE "PAIN MEDICATION." ONLY WHEN HE DOES NEED PAIN MEDICATION.
--- NOTE | 2021-11-05 03:52 | NUR ---
SHIFT SUMMARY PATIENT HAD NO ACUTE CHANGES OBSERVED. OUT OF ISOLATION THIS SHIFT PER CORPORATE WELLNESS COORDINATOR. AXOX 3 AND BEDREST. NOT ALWAYS FOLLOWING DIRECTION. USES URINAL AT BEDSIDE. POWERGLIDE SWETHA INTACT. REPORTED SHOULDER/FOOT PAIN AND ALTERNATED OXYCODONE AND ULTRAM PER EMAR. ON ROOM AIR. VSS/AFEBRILE. DENIES SOB AND N/V. CALL LIGHT IN REACH. BED IN LOWEST POSITION. WILL CONTINUE TO MONITOR UNTIL DAY SHIFT NURSE ASSUMES CARE.
--- NOTE | 2021-11-05 13:08 | NUR ---
PATIENT ALERT AND ORIENTED X4. PERRLA. NEUROPATHY. ABLE TO MOVE ALL EXTREMITIES. MAX ASSIST WITH CEILING LIFT. OVERALL WEAK. NEEDS HELP TURNING. ON ROOM AIR. DENIES COUGH. NO TELE. BP STABLE. DENIES CHEST PAIN/PRESSURE. USING URINAL AND BEDPAN NEEDED. TOLERATING PO DIET. COMPLAINS OF PAIN IN SHOUDLERS AND RIGHT FOOT. MEDICATED PER EMAR. RIGHT HEEL WOUND CLEANED AND DRESSING CHANGED. POWERGLIDE SWETHA FLUSHING AND DRAWING WELL, SALINE LOCKED. BLE EDEMA AND DRY FLAKY SKIN. USING CALL LIGHT. UP IN RECLINER AT THIS TIME EATING LUNCH. DENIES NEEDS. WILL CONTINUE TO MONITOR.
--- NOTE | 2021-11-05 17:43 | NUR ---
SHIFT SUMMARY: NO ACUTE CHANGES. SEE PREVIOUS NOTE. PATIENT UP TO RECLINER FOR LUNCH AND AFTERNOON. BACK IN BED AT THIS TIME. SLEEPING ON AND OFF AND TALKING ON PHONE WITH FRIENDS. USING URINAL IN BED. TOLERATING PO. COMPLAINS OF SHOULDER PAIN THROUGHOUT SHIFT. MEDICATED PER EMAR WITH GOOD RELIEF. USING CALL LIGHT. TURNING NEEDED. DENIES PAIN/NEEDS AT THIS TIME. WILL CONTINUE TO MONITOR AND REPORT OFF.
--- NOTE | 2021-11-06 03:04 | NUR ---
Pt is alert and oriented x4, ambulatory and independent. patient has a colostomy bag, site is clean dry and intact. no complains of pain. vital signs are wnl. blood sugar was elevated. educated pt about diabetic diet. no signs of respiratory distress. pt is now sleeping on bed in lowest position. call light within reach.
--- NOTE | 2021-11-06 04:04 | NUR ---
MACHINIST APPRENTICE SUMMARY AWAKE AT INTERVALS, BOTH REQUESTING PAIN MEDS AND FOR REPOSITIONING AND JUST WANTING TO TALK WITH STAFF. AFFECT MOSTLY CHEERFUL. LEGS ELEVATED ON PILLOWS. NOTE SOME IRRITATION OF GROIN AREA DURING CLEANING FOR INCONTINENCE. CALL LIGHT IN REACH.
[2021-11-06 04:41] LABS: BASOPHILS ABSOLUTE AUTO 0.05 K/mm3 (0.00-0.23); BASOPHILS PERCENT AUTO 1 % (0-2); EOSINOPHILS ABSOLUTE AUTO 0.09 K/mm3 (0.00-0.68); EOSINOPHILS PERCENT AUTO 2 % (0-6); Hematocrit 39.5 % (37.0-53.0); Hemoglobin 12.9 g/dL (13.5-17.5); IMMATURE GRAN ABSOLUTE AUTO 0.03 K/mm3 (0.00-0.10); IMMATURE GRAN PERCENT AUTO 1 % (0-1); LYMPHOCYTES ABSOLUTE AUTO 1.76 K/mm3 (0.84-5.20); LYMPHOCYTES PERCENT AUTO 33 % (21-46); MONOCYTES ABSOLUTE AUTO 0.81 K/mm3 (0.16-1.47); MONOCYTES PERCENT AUTO 15 % (4-13); Mean Corpuscular HGB 31.4 pg (26.0-34.0); Mean Corpuscular HGB Conc 32.7 g/dL (31.5-36.5); Mean Corpuscular Volume 96 fL (80-100); Mean Platelet Volume 9.9 fL (9.1-12.4); NEUTROPHILS ABSOLUTE AUTO 2.53 K/mm3 (1.96-9.15); NEUTROPHILS PERCENT AUTO 48 % (41-73); Platelet Count 219 K/mm3 (150-400); RDW Standard Deviation 52.7 fL (35.1-46.3); Red Blood Cell Count 4.11 M/mm3 (4.30-5.90); White Blood Cell Count 5.27 K/mm3 (4.00-11.30)
[2021-11-06 04:59] LABS: Anion Gap 6 mmol/L (6-16); Blood Urea Nitrogen 21 mg/dL (8-24); Bun/Creatinine Ratio 33.7 (12.0-20.0); CO2, Blood 28 mmol/L (21-32); Calcium, Blood 9.2 mg/dL (8.5-10.1); Chloride, Blood 102 mmol/L (98-108); Creatinine, Blood 0.62 mg/dL (0.60-1.20); Glomerular Filtration Rate >60 (60-); Glucose, Blood 158 mg/dL (70-99); Potassium, Blood 4.1 mmol/L (3.5-5.5); Sodium, Blood 136 mmol/L (136-145)
--- NOTE | 2021-11-06 14:42 | NUR ---
Pt. is alert and sitting in chair. Covid restrictions for his room have been lifted. Pt. quickly engages in a continuuation of a previous discussion. Explored issus of tyler and belief at length. Pt. is unsettled by the lack of clarity regarding his placement for rehab. Pt. communicated some recent distress over a diminished sense of purpose. This was new information for me as it had taken him to a dark place. Listened Empathetically, provided pastoral child and family counselor. Pt. displayed evidence of increasd courage and resolve to regain his health and "do good." Pt. verbalized receptivity to the pastoral child and family counselor. Prayed with pt.
--- NOTE | 2021-11-06 16:56 | NUR ---
SHIFT SUMMARY PATIENT IS ALERT AND ORIENTED X4. PATIENT HAS HAD NO ACUTE EVENTS THIS SHIFT. PATIENT HAS REQUESTED PAIN MEDICATION A FEW TIMES THIS SHIFT WITH MILD RESULTS. PATIENT REPOSITIONED WITH GOOD EFFECT. PATIENT HAS HAD MANY REQUESTS THIS SHIFT. PATIENT HAS MOSTLY BEEN CHEERFUL AND VERY TALKATIVE. CALL LIGHT IN PLACE. BED IN LOCKED AND LOWERED POSITION. WILL MONITOR UNTIL SHIFT CHANGE.
--- NOTE | 2021-11-07 04:46 | NUR ---
CLERICAL ADJUDICATOR SUMMARY ASSISTED FROM CHAIR TO BED WITH LIFT AT SHIFT COMMENCE. BELONGINGS IN REACH. AWAKE AT INTERVALS. SCREAMING FOR STAFF AND CONTINUOUSLY USING CALL LIGHT FOR STAFF TO COME TO ROOM. RECEIVED PAIN MEDS OFTEN -SEE MAR FOR DETAILS. VERY ABRUPT IN TALKING TO STAFF. REDIRECTED OFTEN. CALL LIGHT IN RAECH.
[2021-11-07 06:25] LABS: Anion Gap 6 mmol/L (6-16); Blood Urea Nitrogen 17 mg/dL (8-24); Bun/Creatinine Ratio 32.3 (12.0-20.0); CO2, Blood 28 mmol/L (21-32); Calcium, Blood 9.3 mg/dL (8.5-10.1); Chloride, Blood 102 mmol/L (98-108); Creatinine, Blood 0.53 mg/dL (0.60-1.20); Glomerular Filtration Rate >60 (60-); Glucose, Blood 131 mg/dL (70-99); Sodium, Blood 136 mmol/L (136-145)
--- NOTE | 2021-11-07 18:26 | NUR ---
SHIFT SUMMARY: NO ACUTE EVENTS. C/O GENERALIZED PAIN, REQUESTS PAIN MEDICATION EVERY TIME STAFF ENTERS THE ROOM. MEDICATED PER EMAR. USES THE CALL LIGHT CONSTANTLY. A&O X 2-3, POOR MEMORY. SPENT THE MAJORITY OF THE DAY ON THE PHONE TRYING TO GET HIS BILLS PAID AND AT ONE POINT HAD A REGISTERED ART THERAPIST DELIVER SOMETHING TO A FRIEND OF HIS DOWNSTAIRS. GOT UP IN TO CHAIR FOR BREAKFAST. USING URINAL INDEPENDENTLY. PLACEMENT PENDING.
--- NOTE | 2021-11-08 04:06 | NUR ---
SHIFT SUMMARY PATIENT HAD NO ACUTE CHANGES OBSERVED. AXOX 3 AND BEDREST IN LIFT ROOM. POOR MEMORY USING CALL LIGHT MULTIPLE TIMES WHEN ALREADY ANSWERED. NOT ABLE TO FOLLOW DIRECTIONS AT THIS TIME. REPORTED GENERAL PAIN AND OXYCODONE 5 MG AND ULTRAM 50 MG GIVEN PER EMAR. ASPIRIN GIVEN FOR MIGRAINE PRN. DENIES SOB AND N/V. POWERGLIDE SWETHA DRESSING CHANGED AND INTACT. USES URINAL AT BEDSIDE. LEGS ELEVATED WITH PILLOWS. RIGHT HEEL WOUND CLEANED AND DRESSING CHANGED. CALL LIGHT IN REACH. BED IN LOWEST POSITION. WILL CONTINUE TO MONITOR UNTIL DAY SHIFT NURSE ASSUMES CARE.
[2021-11-08 05:26] LABS: BASOPHILS ABSOLUTE AUTO 0.04 K/mm3 (0.00-0.23); BASOPHILS PERCENT AUTO 1 % (0-2); EOSINOPHILS ABSOLUTE AUTO 0.12 K/mm3 (0.00-0.68); EOSINOPHILS PERCENT AUTO 2 % (0-6); Hematocrit 39.8 % (37.0-53.0); Hemoglobin 12.8 g/dL (13.5-17.5); IMMATURE GRAN ABSOLUTE AUTO 0.02 K/mm3 (0.00-0.10); IMMATURE GRAN PERCENT AUTO 0 % (0-1); LYMPHOCYTES ABSOLUTE AUTO 1.72 K/mm3 (0.84-5.20); LYMPHOCYTES PERCENT AUTO 34 % (21-46); MONOCYTES ABSOLUTE AUTO 0.89 K/mm3 (0.16-1.47); MONOCYTES PERCENT AUTO 18 % (4-13); Mean Corpuscular HGB 30.9 pg (26.0-34.0); Mean Corpuscular HGB Conc 32.2 g/dL (31.5-36.5); Mean Corpuscular Volume 96 fL (80-100); NEUTROPHILS ABSOLUTE AUTO 2.25 K/mm3 (1.96-9.15); NEUTROPHILS PERCENT AUTO 45 % (41-73); Platelet Count 207 K/mm3 (150-400); RDW Coefficient Variation 14.9 % (11.7-14.2); RDW Standard Deviation 52.4 fL (35.1-46.3); Red Blood Cell Count 4.14 M/mm3 (4.30-5.90); White Blood Cell Count 5.04 K/mm3 (4.00-11.30)
[2021-11-08 05:48] LABS: Alanine Aminotransfer (ALT/SGP 15 U/L (12-78); Albumin, Blood 2.8 g/dL (3.4-5.0); Albumin/Globulin Ratio 0.8 (0.8-1.8); Alk Phos 82 U/L (50-136); Anion Gap 6 mmol/L (6-16); Aspartate Aminotrans (AST/SGOT 15 U/L (12-37); Bilirubin, Total 0.7 mg/dL (0.1-1.0); Blood Urea Nitrogen 15 mg/dL (8-24); Bun/Creatinine Ratio 26.4 (12.0-20.0); CO2, Blood 27 mmol/L (21-32); Calcium, Blood 9.2 mg/dL (8.5-10.1); Chloride, Blood 104 mmol/L (98-108); Creatinine, Blood 0.57 mg/dL (0.60-1.20); Globulin, Blood 3.6 g/dL (2.2-4.0); Glomerular Filtration Rate >60 (60-); Glucose, Blood 101 mg/dL (70-99); Magnesium, Blood 2.1 mg/dL (1.6-2.4); Phosphorus, Blood 3.5 mg/dL (2.5-4.9); Potassium, Blood 3.9 mmol/L (3.5-5.5); Sodium, Blood 137 mmol/L (136-145); Total Protein, Blood 6.4 g/dL (6.4-8.2)
--- NOTE | 2021-11-08 18:30 | NUR ---
SHIFT SUMMARY: NO ACUTE EVENTS. C/O L SHOULDER/GENERALIZED PAIN; MEDICATED PER EMAR WITH ADEQUATE RELIEF. DENIED NAUSEA. REQUESTED THIS AUTHOR CALL PROVIDER FOR AN "EXTRA" DOSE OF ADDERALL, WHICH THIS AUTHOR DENIED. USING URINAL INDEPENDENTLY. NO BM TODAY. DRESSING CHANGED ON L HEEL WOUND. GOT UP IN CHAIR X 1, BUT WANTED BTB AFTER 30 MINUTES; NURSING CONVINCED HIM TO STAY IN CHAIR UNTIL AFTER DINNER, ABOUT 1.5 HOURS. AWAITING PLACEMENT.
--- NOTE | 2021-11-09 02:47 | NUR ---
PATIENT CHOOSING TO THROW TRASH ON THE FLOOR X FIVE ITEMS. PATIENT REMINDED HIS TRASH CONTAINER IS NEXT TO BED IN THE SAME SPOT. PATIENT HAVING INCREASED AGIATATION AND NOT ABLE TO FOLLOW DIRECTIONS AT THIS TIME. USING CALL LIGHT RIGHT AFTER STAFF WAS JUST IN ROOM. PATIENT REMINDED ROUNDING IS DONE EVERY TWO HOURS. CALL LIGHT IN REACH.
--- NOTE | 2021-11-09 03:44 | NUR ---
SHIFT SUMMARY PATIENT HAVING INCREASED AGITATION T/O SHIFT. THREW FIVE TRASH ITEMS ONTO THE FLOOR. REMINDED HIS TRASH CONTAINER IS IN SAME SPOT NEXT TO THE BED. PATIENT HOLLARING FOR STAFF TO COME IN IF THEY WALK BY HIS DOOR X 8. PATIENT PUSHING CALL LIGHT AFTER STAFF JUST IN HIS ROOM. REMINDED OF TWO HOUR ROUNDINGS. IN CHAIR AT SHIFT CHANGE AND LIFT USED TO PLACE HIM BACK IN BED. REPORTED SHOULDER PAIN T/O SHIFT AND OXYCODONE 5 MG AND ULTRAM 50 MG GIVEN PER EMAR. USES URINAL AT BEDSIDE. POWERGLIDE SWETHA INTACT. DENIES SOB AND N/V. VSS/AFEBRILE. LEGS ELEVATED WITH PILLOWS. CALL LIGHT IN REACH. BED IN LOWEST POSITION. WILL CONTINUE TO MONITOR UNTIL DAY SHIFT ASSUMES CARE.
--- NOTE | 2021-11-09 10:00 | NUR ---
PATIENT WOULD LIKE DR. LERMA TO CALL DR. SULLIVAN AT [facility] IN [place] AT [phone] TO DISCUSS THE PLAN TO REMOVE THIS IVC ON 11/27 AT 0900. NOTE WITH THIS INFO WRITTEN ON PATIENT'S WHITE BOARD AND CHARGE NURSE INFORMED. PLANS TO INFORM MD ON ROUNDS.
--- NOTE | 2021-11-09 11:13 | NUR ---
PATIENT REQUESTED TO BE WHEELCHAIRED DOWNSTAIRS TO THE [facility] TO GET MONEY FOR SOMEONE WHO IS GOING TO DO SOME BUSINESS FOR HIM OUTSIDE OF THE HOSPITAL. SPOKE WITH HILDA, CHARGE NURSE WHO SAID THIS IS NOT POSSIBLE AND THAT SHE WILL COME TO DISCUSS WITH WITH HIM. PATIENT REFUSED TO WORK WITH THERAPY JUST A FEW MINUTES BEFORE THIS. HE STATED THAT HE DIDN'T WANT TO BE LIFTED TO THE CHAIR UNTIL LUNCH/AFTER LUNCH TODAY WHEN CORE EXTRUDER DISCUSSED IT WITH HIM. PATIENT HAS HAD NUMEROUS PHONE CALLS THIS MORNING IN WHICH HE IS TALKING VERY LOUDLY AND SEEMS AGGRAVATED WHEN ON THE PHONE. REFUSES TO LET THE DOOR BE CLOSED OR THE PRIVACY CURTAINS DRAWN VERY FAR EVEN WHEN HE WAS WITHOUT A SHIRT AND ONLY HAD A CLOTH COVERING HIS GENITALS.
--- NOTE | 2021-11-09 16:47 | NUR ---
MEDICATED FOR C/O PAIN PER E-DEC. PATIENT ONLY SAT AT THE EDGE OF THE BED TODAY. REFUSED TO WORK WITH PT OR BE LIFTED TO THE CHAIR AFTER LUNCH ORIGINALLY REQUESTED. PATIENT SPENT A LARGE PART OF THE DAY ON THE PHONE DEALING WITH PERSONAL BUSINESS. PATIENT ASKED IF SECURITY COULD TAKE HIS DEBIT CARD WITH PIN TO THE [facility] TO GET MONEY TO BE GIVEN TO SOMEONE WHO IS HANDLING HIS PERSONAL BUSINESS. CHARGE NURSE DISCUSSED WITH SECURITY AND THAT IS NOT PERMISSIBLE. PATIENT HAS FREQUENTLY USED THE CALL LIGHTS TODAY AND HAS BEEN VERY VERBALLY AGRESSIVE WITH STAFF AND RUDE AT TIMES. VOIDS PER URINAL. GOOD APPETITE AND PO FLUIDS INTAKE NOTED. WILL MONITOR.
--- NOTE | 2021-11-10 06:40 | NUR ---
PATIENT WAS AWAKE ALL NIGHT AND VERY VERBALLY ABUSIVE WITH ALL STAFF ENTERING ROOM. CALLING TO BE MOVED, CONSTANTLY DRINKING FLUIDS AND THEN GETTING ANGRY AT NURSING STAFF FOR BRINGING WATER WHEN HE ASKED AND MAKING HIM STAY AWAKE AND USE URINAL. DISK RECOATER BROUGHT INTO ROOM TWICE TO ASSIST MULTIPLE STAFF IN REPOSITIONING AND TO WITNESS THE PATIENTS VERBAL ABUSE. SKIN AROUND EDEMATOUS SCROTUM STILL RED, BUT APPEARS IMPROVED OVER SEVERAL DAYS AGO WHEN THIS RN VISUALIZED IT LAST. PATIENT EXCITED AT BEGINNING OF SHIFT TO TALK ABOUT POSSIBLE UPCOMING TRIP TO [facility] TO REMOVE/REPLACE IVC FILTER. PHYSICIAN NAME AND NUMBER ARE ON WHITEBOARD IN ROOM
--- NOTE | 2021-11-10 11:00 | NUR ---
PATIENT REQUESTED TO DRESS IN HIS NORMAL CLOTHES AND BE WHEELED DOWNSTAIRS TO THE [facility] TO WITHDRAW CHANDLER TO GIVE TO PEOPLE WHO ARE PAYING BILLS/DOING ERRANDS FOR HIM OUTSIDE OF THE HOSPITAL. DISCUSSED WITH GILA ESPINOZA CHARGE NURSE. SHE STATED IF WE CAN VERIFY THE [facility] IS WORKING THIS COULD BE DONE A ONE TIME THING. PLANS TO INFORM PATIENT WHEN HE IS OFF THE PHONE. PATIENT IS ON THE PHONE BEING VERY LOUD IN HIS CONVERSATION.
--- NOTE | 2021-11-10 15:55 | NUR ---
MUNA AGUILERA OFFERED TO ASSIST PATIENT TO A WHEELCHAIR TO THE [facility] EARLIER THIS AFTERNOON AND HE REFUSED AT THAT TIME. PATIENT HAS BEEN ON THE PHONE FREQUENTLY TALKING LOUD AND DOES NOT WANT THE PRIVACY CURTAIN CLOSED OR DOOR CLOSED AT ALL. WILL MONITOR.
--- NOTE | 2021-11-10 16:46 | NUR ---
AAO X 4. POWERGLIDE INTACT. VOIDS PER URINAL. HAD A BM OF HARD STOOL TODAY. TOLERATED PO FOOD AND FLUIDS. MEDICATED FOR C/O PAIN PER E-DEC. PATIENT HAS KEPT THE DOOR AND PRIVACY CURTAINS OPEN TODAY AND HAS SPENT A LARGE PORTION ON THE TELEPHONE TALKING VERY LOUDLY THAT IT COULD BE HEARD DOWN THE HALLWAY. HE HAS BEEN VERY DEMANDING OF STAFF, OFTEN HITTING THE CALL FIELDS SOON STAFF EXIT HIS ROOM AFTER A LENGTHY AMOUNT OF TIME TRYING TO MEET HIS REQUESTS. HE HAS RECEIVED PERMISSION FOR A ONE TIME OPPORTUNITY TO BE WHEELED DOWNSTAIRS TO THE [facility] TO GET MONEY FOR SOME PEOPLE HE KNOW TO ASSIST WITH HIS PERSONAL AFFAIRS. HE REFUSED WHEN ONE ELECTRICAL SYSTEMS DESIGN ENGINEER OFFERED TO ASSIST HIM WITH THIS THIS AFTERNOON. CHARLIE, CHARGE NURSE IS AWARE. WILL MONITOR.
--- NOTE | 2021-11-10 17:17 | NUR ---
@ 1702, PATIENT WAS FOUND SITTING ON THE EDGE OF THE BED WITH A SHIRT AND NO PANTS/UNDERGARMENTS ON WANTING TO GET TO THE CHAIR TO SIT. INSTRUCTED PATIENT THAT HE NEEDED TO GET BACK IN THE BED UNTIL I COULD GET ADEQUATE MOVING ASSISTANCE. HE ATTEMPTED TO STEP FORWARD TOWARD THE BEDSIDE CHAIR AND WAS UNABLE TO MAKE THE NECESSARY STEPS. ATTEMPTED TO GET HIM TO JUST SIT DOWN ON THE FLOOR WHICH HE REFUSED HELP WAS BEING CALLED TO ASSIST WITH MOVING HIM. HE PROCEEDED TO THRUST HIMSELF TOWARD THE CHAIR LANDING WITH HIS UPPER BODY IN THE CHAIR AND LEGS SITTING ON THE FLOOR. NO OBVIOUS INJURIES WERE NOTED. ASHLEY JUAN RN CHARGE NURSE WAS NOTIFIED SHE ARRIVED TO THE EMERGENCY CALL. DR. LERMA WAS NOTIFIED AT 1709. THE CHARGE NURSE NOTIFIED THE NURSING MANAGER HVAC AT 1710. ASSISTANCE BY MULTIPLE STAFF WAS GIVEN TO GET HIM BACK INTO THE BED VIA THE LIFT IN THE ROOM. POST FALL VS AT APRPOXIMATELY 1725 WERE 99.4, 100, 20. 138/96, O2 SAT 94% RA.
--- NOTE | 2021-11-10 18:16 | NUR ---
S/P WITNESSED FALL. PATIENT IN BED TALKING ON TELEPHONE. DR. LERMA, MED SPECIALIST AND CHARGE NURSES ASHLEY JUAN, GILA AND NIC VARGAS RN WERE NOTIFIED. NO OBVIOUS INJURIES OCCURRED. AAO X 4. NO NEEDS VOICED AT THIS TIME. AAO X 4. BED ALARM ON.
--- NOTE | 2021-11-11 05:26 | NUR ---
NO CHANGES OVERNIGHT WITH TY'S ASSESSMENT OTHER THAN HE WAS MORE RESPECTFUL OF THE NURSING STAFF. STILL SLEEPLESS ALL NIGHT
--- NOTE | 2021-11-11 17:28 | NUR ---
SHIFT SUMMARY PATIENT IS ALERT AND ORIENTED, PLEASANT AND COOPERATIVE WITH CARE THIS SHIFT. THE PATIENT HAS BEEN UP IN RECLINER SINCE LUNCH THIS SHIFT. THE PATIENT HAS REFUSED THEIR EVENING DOSE OF METFORMIN AFTER RESEARCHING SIDE EFFECTS ON THE PHONE. THE PATIENT ALSO REFUSED LYRICA AND ROBAXIN. THE PATIENT WAS ADAMANT ABOUT NOT TAKING THE MEDICATIONS. PATIENT WAS MEDICATED ONCE FOR PAIN THIS SHIFT WITH OXYCODONE AND A LIDOCAINE PATCH. THE PATIENT WAS HAPPY TO GET SOME OF THEIR BILLS PAID TODAY. VSS. NO ACUTE CHANGES. THIS NURSE WILL CONTINUE TO CARE FOR THE PATIENT UNTIL SHIFT REPORT IS GIVEN TO ONCOMING NURSE.
[2021-11-12 05:54] LABS: BASOPHILS ABSOLUTE AUTO 0.06 K/mm3 (0.00-0.23); BASOPHILS PERCENT AUTO 1 % (0-2); EOSINOPHILS PERCENT AUTO 2 % (0-6); Hematocrit 41.5 % (37.0-53.0); Hemoglobin 13.5 g/dL (13.5-17.5); IMMATURE GRAN ABSOLUTE AUTO 0.02 K/mm3 (0.00-0.10); IMMATURE GRAN PERCENT AUTO 0 % (0-1); LYMPHOCYTES ABSOLUTE AUTO 1.93 K/mm3 (0.84-5.20); LYMPHOCYTES PERCENT AUTO 32 % (21-46); MONOCYTES ABSOLUTE AUTO 0.83 K/mm3 (0.16-1.47); MONOCYTES PERCENT AUTO 14 % (4-13); Mean Corpuscular HGB 30.9 pg (26.0-34.0); Mean Corpuscular HGB Conc 32.5 g/dL (31.5-36.5); Mean Corpuscular Volume 95 fL (80-100); Mean Platelet Volume 9.7 fL (9.1-12.4); NEUTROPHILS ABSOLUTE AUTO 3.12 K/mm3 (1.96-9.15); NEUTROPHILS PERCENT AUTO 52 % (41-73); Platelet Count 212 K/mm3 (150-400); RDW Coefficient Variation 14.9 % (11.7-14.2); RDW Standard Deviation 51.9 fL (35.1-46.3); Red Blood Cell Count 4.37 M/mm3 (4.30-5.90); White Blood Cell Count 6.06 K/mm3 (4.00-11.30)
[2021-11-12 06:11] LABS: Alanine Aminotransfer (ALT/SGP 17 U/L (12-78); Albumin, Blood 3.2 g/dL (3.4-5.0); Albumin/Globulin Ratio 0.8 (0.8-1.8); Alk Phos 90 U/L (50-136); Anion Gap 4 mmol/L (6-16); Aspartate Aminotrans (AST/SGOT 16 U/L (12-37); Bilirubin, Total 0.6 mg/dL (0.1-1.0); Blood Urea Nitrogen 15 mg/dL (8-24); Bun/Creatinine Ratio 28.6 (12.0-20.0); CO2, Blood 29 mmol/L (21-32); Calcium, Blood 9.6 mg/dL (8.5-10.1); Chloride, Blood 105 mmol/L (98-108); Creatinine, Blood 0.52 mg/dL (0.60-1.20); Globulin, Blood 3.8 g/dL (2.2-4.0); Glomerular Filtration Rate >60 (60-); Glucose, Blood 130 mg/dL (70-99); Magnesium, Blood 2.3 mg/dL (1.6-2.4); Potassium, Blood 3.9 mmol/L (3.5-5.5); Sodium, Blood 138 mmol/L (136-145)
--- NOTE | 2021-11-12 12:08 | NUR ---
@1155, PATIENT NOTED SCREAMING ON THE TELEPHONE WHILE THE DOOR IS OPEN AND IT COULD BE HEARD ALL THE WAY TO THE NURSES STATION. TOLD THE PATIENT THIS WAS UNACCEPTABLE BEHAVIOR IT IS DISTRESSING TO OTHER PATIENTS. DOOR CLOSED.
--- NOTE | 2021-11-12 14:32 | NUR ---
INQUIRED WITH PATIENT IF HE WAS WILLING TO TAKE HIS GLUCOPHAGE AND XARELTO DUE LATER THIS AFTERNOON. STATES HE DOESN'T WANT XARELTO, ULTRAM, GABAPENTIN, LYRICA. STATES HE WILL READ ABOUT GLUCOPHAGE'S SIDE EFFECTS BUT FOR NOW WILL REFUSE IT TOO. EXPLAINED THE PURPOSE OF XARELTO AND THE RISK OF CLOTTING. STATED HE WAS AWARE.
--- NOTE | 2021-11-12 15:33 | NUR ---
PATIENT UP IN CHAIR VIA LIFT ASSISTED BY OT.
--- NOTE | 2021-11-12 17:43 | NUR ---
PATIENT STILL UP IN CHAIR AFTER OT SESSION. PATIENT REFUSED SOME MEDS TODAY. SEE PREVIOUS NURSES NOTE AND E-MAR. VOIDED PER URINAL TODAY. NO INTENTIONAL VOIDS OUTSIDE OF THE URINAL HAPPENED THAT I AM AWARE OF. MEDICATED FOR C/O PAIN. SEE EMAR. PATIENT WAS NOTED SITTING ON THE EDGE OF THE BED WITH FEET ON THE FLOOR RIGHT OT SHOWED UP FOR A SESSION. HE MAY HAVE BEEN ATTEMPTING TO GET OUT OF THE BED AGAIN. WILL SUGGEST TO PM SHIFT TO PUT THE BED MONITOR ON ONCE HE'S BACK IN BED LATER. THE DOOR WAS CLOSED ON THE PATIENT ABOUT 3 TIMES TODAY WHEN HE WAS ON THE PHONE AND NEARLY SCREAMING (ONCE SO LOUD IT WAS HEARD DOWN THE [place] AT THE NURSES STATION). BEHAVIOR CONTRACT WAS DISCUSSED WITH PATIENT LAST NIGHT BE CHARGE NURSE. HE HAS USED THE CALL FIELDS LESS FREQUENTLY THE LATER PART OF THE DAY AND BEEN VERY INTENTIONAL WITH A LIST OF THINGS NEEDED/TO BE DONE WHEN STAFF WAS IN THE ROOM. DOOR REMAINED OPEN WHEN THE PATIENT WAS BEHAVING APPROPRIATELY. WILL MONITOR.
--- NOTE | 2021-11-12 18:53 | NUR ---
PATIENT INQUIRED WHEN NEXT PAIN MED COULD BE GIVEN. INFORMED HIM IT WOULD BE 2100. INQUIRED ABOUT GETTING A NEW LIDOCAINE PATCH. EXPLAINED TO HIM HOW THAT IS ORDERED. OFFERED AN ULTRAM WHICH HE REFUSED EARLIER TODAY IN THE LIST OF OTHER MEDS HE SAID HE WOULDN'T TAKE. PATIENT BECAME ANGRY AND STARTED RAISING HIS VOICE TO A DISTURBING LEVEL AND THE DOOR WAS CLOSED. PATIENT IS SITTING IN THE BEDSIDE CHAIR WITH LEGS ELEVATED WATCHING TV.
--- NOTE | 2021-11-13 05:56 | NUR ---
SUPERVISOR PHOTOCOMPOSITION SUMMARY PATIENT HAS A FAIR SHIFT. WAS RESTLESS FOR THE MOST PART. PAIN WAS MANAGED WITH OXYCODONE. NEEDED. HIS V/S WERE STABLE. HE REFUSED SOME OF HIS NIGHT MED AND THAT WAS DOCUMENTED. WILL CONTINUE TO MONITOR HIM.
--- NOTE | 2021-11-13 09:46 | NUR ---
MIA, CONSTRUCTION PROJECT MGR BY TO DISCUSS DISRUPTIVE BEHAVIOR CONSULT PLACED. PLANS TO SEE PATIENT TODAY.
--- NOTE | 2021-11-13 10:32 | NUR ---
@ 1010, BRYAN PATIENT ADVOCATE STOPPED BY TO SEE PATIENT BUT HE WAS ASLEEP.
--- NOTE | 2021-11-13 12:47 | NUR ---
PATIENT CALLED FOR PAIN MEDICATION. WENT STRAIGHT TO ROOM WITH IT. FOUND HIM ASLEEP LIGHTLY SNORING WITH THE NURSE CALL BUTTON IN HIS HAND. MEDICATION RETURNED TO [facility].
--- NOTE | 2021-11-13 15:03 | NUR ---
[facility] consult order processed. Case details discussed with nursing leadership, risk management, and CM. Conversation facilitated with the patient regarding documented and verbalized maladaptive and aggressive behavior, and the medical units expected standards of conduct. Mr Han was apologetic for his profane use of language, outbursts of agitation, and what he described as his "perceived sexual advances." I was clear that we have a zero tolerance policy for disrespectful and abusive actions and that we strive to maintain an environment of trust and safety. He agreed. Mr Han openly shared with me some of his frustrations, concerns and fears, which he believes adversely influenced his overall outlook and conduct. We dialogued about some alternative strategies for stress alleviation, and the adoption of language that would be more productive and less offensive and or inappropriate. Thank you for this consult. Mal Case MBA, D
--- NOTE | 2021-11-13 16:05 | NUR ---
Pt. was sitting up in recliner. Pt. welcomed my visit. Re-established rapport. Pt. displayed evidence of drowsiness. Pt. 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 Pt. verbalized that his anticipated discharge plan. Normalized the Patient experience. Pt verbalized appreciation for the nurse currently caring for him. Pt requested that I return tomorrow. Prayed for Pt.
--- NOTE | 2021-11-13 17:13 | NUR ---
HEEL PROTECTOR REMOVED FROM R HEEL FOR MD TO ASSESS HEEL WOUND. APPROX 1" X 1" WOUND NOTED. NEW HEEL PROTECTOR APPLIED. TOLERATED WELL. STILL SITTING IN BEDSIDE CHAIR RECLINED WATCHING TV. MEDICATED FOR PAIN PER E-DEC.
--- NOTE | 2021-11-13 17:14 | NUR ---
MEDICATED FOR PAIN PER E-MAR. PATIENT REFUSED SOME MEDS THROUGHOUT THE SHIFT PER E-MAR. SAT IN BEDSIDE CHAIR ALL OF THIS SHIFT. DOOR REMAINED OPEN THIS SHIFT. COMPLAINT EVALUATION SUPERVISOR SPOKE WITH THE PATIENT AT LENGTH CONCERNING BEHAVIORAL ISSUES. PATIENT SLEPT ALOT THROUGHOUT THE SHIFT AND WAS ON THE PHONE DEALING WITH PERSONAL BUSINESS WELL. HE WAS NOTED TEARFUL ONCE BUT HE STATED IT WASN'T RELATED TO PAIN WHEN ASKED BUT BECAUSE OF "SOMETHING ELSE" AND WOULDN'T ELABORATE. WILL MONITOR.
--- NOTE | 2021-11-13 18:54 | NUR ---
PATIENT TRANSFERRED TO ROOM 252 VIA BEDSIDE CHAIR RECLINER AND ALL BELONGINGS MOVED WITH HIM. AAO X 4. NO COMPLAINTS VOICED AT THE TIME OF TRANSFER. REPORT GIVEN TO BARNEY POWELL RN.
--- NOTE | 2021-11-14 18:48 | NUR ---
NO ACUTE CHANGES THIS SHIFT. VSS, ON RA. DRESSING TO R HEEL PRESSURE SORE CHANGED. ASPERCREAM AND LIDOCAINE APPLIED TO L SHOULDER. PATIENT AWAITING TAPPING MACHINE OPERATOR AUTOMATIC PLACEMENT. CALL APPROPRATELY FOR ASSISTANCE. UP WITH A LIFT.
--- NOTE | 2021-11-15 04:05 | NUR ---
Pt is alert and oriented x4. Chair bound will need blanca lift for transfers. Patient states he wants to sleep on the chair tonight. All needs met. Patient is complaining of left shoulder and bilateral lower leg, PRN pain medication administered. Snacks provided but educated pt about glucose intake. Pt states understanding. He is calm, but gets easily agitated when he wants things done right away. He uses the call light appropriately and is within reach. R foot wound dressing is clean dry and intact.
--- NOTE | 2021-11-15 14:55 | NUR ---
Pt. was sitting up preparing to eat lunch. Pt. welcomed my visit. Pt. was unsettled about the need to get his phone and a personal note to a friend who was to come to the hospital to do some errands for him. <visit interrupted by a rapid response call>. Conversation resumed upon my return. Pt. was unsettled about his very quick room change that happened two days previous. Pt. verbalized confusion over what may have happened. Listened Empathetically. Pt. talked about family, and gifts he had purchased for them. Pt. demonstrated emotion when speaking of grandchildren he had never met. Provided a calming presence and reinforced helpful attitudes and practices. <visit was interrupted by a trauma call>
--- NOTE | 2021-11-15 18:39 | NUR ---
NO ACUTE CHANGES THIS SHIFT. PATIENT CONTINUES TO REFUSE MANY OF THE MEDICATIONS ORDERED. VSS, ON RA. DRESSING TO R FOOT REMAINS C/D/I. PATIENT CONTINUES TO AWAIT PLACEMENT.
[2021-11-15 18:41] LABS: Albumin, Blood 3.5 g/dL (3.4-5.0); Anion Gap 6 mmol/L (6-16); Blood Urea Nitrogen 19 mg/dL (8-24); Bun/Creatinine Ratio 31.2 (12.0-20.0); CO2, Blood 24 mmol/L (21-32); Calcium, Blood 9.8 mg/dL (8.5-10.1); Chloride, Blood 101 mmol/L (98-108); Creatinine, Blood 0.61 mg/dL (0.60-1.20); Glomerular Filtration Rate >60 (60-); Glucose, Blood 149 mg/dL (70-99); Phosphorus, Blood 3.5 mg/dL (2.5-4.9); Potassium, Blood 4.4 mmol/L (3.5-5.5); Sodium, Blood 131 mmol/L (136-145)
--- NOTE | 2021-11-16 02:33 | NUR ---
Patient is alert and oriented x4. Chairbound and needs max assist and blanca lift to transfer between chair and bed. pt complains of bilateral leg pain and shoulder pain. pt gets anxious about his care. pt did not take some night medications because he states he does not need it. PRN pain meds given when needed. pt slept on chair, states he is more comfortable there than the bed. pt's call light within reach.educated pt about diabetes and his carbohydrate and glucose intake.
--- NOTE | 2021-11-16 10:18 | NUR ---
Pt. was alert and sitting up on side of bed. Pt. requested assistance in helping find a local shop to repair his phone. Assistance was given. Pt. verbalized gratitude. Pt. was then distressed because he was slipping off the bed. Nurses were called to assist moving him to a chair with a lift. Pt. was distressed about support system complications. Provided anxiety containment and reinforced helpful attitudes, and helped pt. with a plan to address complications. Pt. displayed evidence of independance. Pt. declined pastoral prayer and requested I leave. I will prairie band back to pt. later in the day.
--- NOTE | 2021-11-16 10:57 | NUR ---
Delivered envelope unopened to a person named uziel kahn, to [facility]. at 1048am for ernesto in room 352.
--- NOTE | 2021-11-16 12:37 | NUR ---
Pt. was sitting up. Pt. had requested a veterinary poultry inspector visit through switchboard. Pt. was displaying evidence of anxiety due to pressures at home and from care givers in the hospital. Empathetically listen. Reinforce that staff is functioning only on his behalf. Pt. continues to be distressed by support system complications and deficits. Provide a calming presence. Pt. requested I return later. Provided anxiety containment. Explored the pts. role in letting caregivers care for pt.
--- NOTE | 2021-11-16 18:26 | NUR ---
PATIENT REPORTS THAT HE WANT TO ADVOCTE FOR HIMSELF AND HIS MEDICATION. THERE ARE MEDICATIONS THAT HE DECLINED TO TAKE TODAY, BECASUE HE "KNKOWS THEY ARE BAD FOR ME, WITH THE THINGS THEY CAUSE". HE WAS GOING TO SPEAK WITH THE DOCTOR. PATIENT HAS NO NEW CONCERNS MEDICALLY TODAY.
--- NOTE | 2021-11-16 18:26 | NUR ---
LATE ENTRY: 1744 TY REQUESTED THIS RN TO DELIVER A SEALED ENVELOPE TO [facility] REPORTING THERE WAS MONEY IN IT FOR A FRIEND WHO WOULD BE HERE SOON TO LAUNDRY OPERATOR FINISHING. I VERIFIED WITH 2ND RN JOSE MCCLENDON ENVELOPE WAS SEALED AND DELIVERED TO FORM SETTER/DRIVER CODY TO HAVE PLACED IN SAFE UNTIL FRIEND ARRIVED TO LAUNDRY OPERATOR FINISHING ENVELOPE. N ENTRANCE SCREENER ALSO INFORMED OF WHERE THE ENVELOPE WAS PLACED.
--- NOTE | 2021-11-17 06:33 | NUR ---
Pt is alert and oriented x4. Complains of 7/10 neck pain, PRN meds given . He is more pleasant tonight. No signs of distress. Patient is sleeping on the chair with call light within reach.
--- NOTE | 2021-11-17 12:00 | NUR ---
Patient in 352 asked me to drop off an envelope to [facility] it was sealed.
--- NOTE | 2021-11-17 15:29 | NUR ---
SPOKE TO VEGETABLE SPECKER ABOUT PT RECIEVING SEALED ENVELOPES AND SENDING SEALED ENVELOPES DOWN TO PEOPLE WHO WERE SHOWING UP FOR THEM. PER VEGETABLE SPECKER PT HAS A BEHAVIORAL CONTRACT AND IS AWARE HE IS NOT ALLOWED TO DO THIS ANYMORE. REQUESTED THE VEGETABLE SPECKER COME TO SPEAK TO THE PT AND REMIND HIM OF THIS AGREEMENT.
--- NOTE | 2021-11-17 19:24 | NUR ---
SHIFT SUMMARY- PT ALERT AND ORIENTED X4. PT WAS ATTEMPTING TO HAVE STAFF FREIGHT AIR BRAKE FITTER AND DELIVER "MAIL" TO AND FROM DIFFERENT VISITORS. WAS INFORMED BY THE CHARGE NURSE THE PT HAS A BEHAVIOR CONTRACT AND IS AWARE THAT THIS IS NOT ALLOWED. SPEECH SCIENTIST CAME TO SPEAK TO THE PT AND HE IS AWARE THAT IT IS NOT ALLOWED. PT ACKNOWLEDGED THIS. PASSED ON TO NIGHT NURSE ABOUT THE BEHAVIOR CONTRACT AND SHE WILL BE SURE TO PASS ON TO THE NEXT NURSE IN REPORT. PT HAD A FULL SHOWER TODAY. PT CURRENTLY SITTING UP IN THE RECLINER. HE HAS REFUSED TO GET INTO THE BED AT ALL TODAY. PT WORKED WITH THERAPY, HE IS VERY ATTENTION SEEKING AND WILL TRY TO KEEP STAFF IN THE ROOM LONG HE CAN. STAFF SHOULD BE AWARE. PT HAS BEEN PLEASENT T/O THE DAY.
--- NOTE | 2021-11-18 05:45 | NUR ---
Pt is AOx4. Refuses some medication. complains of 7/10 generalized pain. pt is chair bound. pt sleeps on his chair. no signs of distress. right foot uler dressing is clean dry and intact. call light within reach.
--- NOTE | 2021-11-18 19:42 | NUR ---
SHIFT SUMMARY- PT A&O X4 HAS SOME BEHAVIORS THAT CAN CAUSE AGGITATION. PT HAS VISITORS STILL COMING TO THE DOOR ATTEMPTING TO GET IN TO COLLECT ENVELOPES FROM THE PT, PT IS AWARE THIS IS NOT SUPPOSED TO BE HAPPENING BUT WITH EACH NEW STAFF MEMBER HE HAS CARING FOR HIM HE ATTEMPTS AGAIN. PT HAS A BEHAVIOR CONTRACT IN PLACE RELATED TO THESE BEHAVIORS. PT WANTED STAFF TO UNLOCK THE BRAKES ON HIS RECLINER, WHILE HE WAS SITTING IN IT, SO HE COULD MOVE ABOUT THE ROOM. STAFF TOLD HIM THIS IS NOT POSSIBLE BECAUSE OF THE SAFETY CONCERN, HE COULD FALL OUT OF THE CHAIR IF THE TINY WHEELS HIT ANY OBJECTS. PT BECAME ANGRY AND BEGAN YELLING AT STAFF. STAFF REDIRECTED HIM HOWEVER HE STILL WAS USING AGRESSIVE LANGUAGE TO CONVEY HIS DISPLEASURE, PT WAS INFORMED THAT WAS NOT OK FOR HIM TO TALK TO PEOPLE WHO ARE HERE TO HELP YOU IN THAT MANOR, STAFF LEFT, AND RETURNED SHORTLY WHEN THE PT WAS NO LONGER ANGRY AND YELLING AT THEM. PT WAS NOT APPOLOGETIC ABOUT HIS BEHAVIOR AT ALL, BUT THE BEHAVIOR IMPROVED.
--- NOTE | 2021-11-19 18:11 | NUR ---
SHIFT SUMMARY PATIENT ALERT AND ORIENTED, COOPERATIVE WITH CARE AT TIMES. PT REFUSED SOME MORNING PO MEDS. PT MEDICATED ONCE FOR PAIN. PATIENT TOOK BLOOD THINNERS THIS EVENING. PT UP IN RECLINER MOST OF DAY. NO ACUTE CHANGES THIS SHIFT. THIS NURSE WILL CONTINUE TO CARE FOR THE PATIENT UNTIL SHIFT REPORT IS GIVEN TO ONCOMING NURSE.
--- NOTE | 2021-11-20 06:27 | NUR ---
Patient is alert and oriented. Complains of 6/10 pain on kartik legs and shoulder. Patient is attention seeking and gets easily agitated. He wants to snack often, educated pt about diabetic diet. Call light within reach.
--- NOTE | 2021-11-20 17:53 | NUR ---
SUMMARY PT SITTING UP IN THE CHAIR AT THE BEDSIDE, PT HAS BEEN COOPERATIVE WITH CARE, PT ON THE PHONE MAKING MANY PHONE CALLS TODAY, HAS MANY REQUESTS, PT MED PER EMAR FOR C/O PAIN, CARE MANAGEMENT WORKING ON A SAFE DISCHARGE PLAN, VSS, WILL CONTINUE TO MONITOR
--- NOTE | 2021-11-21 05:38 | NUR ---
SUMMARY: PT A/O 3-4 AND WAS MOSTLY PLEASANT/COOPERATIVE THIS SHIFT BUT CAN BECOME IRRITABLE, IMPATIENT AND CONTANKEROUS AT TIMES. HE CALLS OFTEN FOR NONACUTE NEEDS AND REQUESTS FREQUENT SNACKS/BEVERAGES, ASSISTANCE W/CARE AND PAIN MEDS. OXYCODONE AND TRAMADOL PROVIDED PRN FOR TOLERABLE RELIEF OF SHOULDER, BLE AND R.HEEL PAIN. ASPERCREME WAS ALSO APPLIED TO LEGS FOR PAIN R/T CELLULITIS. BLE'S REMAIN DISCOLORED, DRY, SWOLLEN AND WARM BUT CELLULITIS IS IMPROVING. HE SAT IN RECLINER THE MAJORITY OF SHIFT W/BLE'S ELEVATED AND BELONGINGS IN REACH. VSS/AFEBRILE AND NO ACUTE CHANGES. CARE MANAGEMENT WORKING ON SAFE DISCHARGE PLANNING. WCTM AND REPORT TO DAY RN.
--- NOTE | 2021-11-21 18:12 | NUR ---
SUMMARY PT SITTING UP IN THE CHAIR EATING DINNER, PT HAS BEEN PLEASANT AND COOPERATIVE WITH MOST CARE TODAY, PT HAS MANY NEEDS AND DEMANDS, USES THE CALL LIGHT FREQUENTLY, IS ON THE PHONE A LOT OF THE TIME, PT HAS DECLINED TO RETURN TO THE BED MULTIPLE TIMES TODAY, PT MED PER EMAR FOR PAIN, VSS, WILL CONT TO MONITOR
--- NOTE | 2021-11-22 03:05 | NUR ---
PATIENT'S POWERGLIDE CAME OUT DURING THE SHIFT. HE STATES HE "WOKE UP AND WAS SITTING ON IT". HE CURRENTLY DOES NOT HAVE ANY MEDICATIONS OR BLOOD DRAWS AT THIS TIME. INTERESTINGLY, POWERGLIDE SHEET OUTSIDE DOOR STATES LINE SHOULD'VE BEEN DC'ED DURING THIS SHIFT. CHARGE NURSE ELO IS AWARE OF THE SITUATION.
--- NOTE | 2021-11-22 05:54 | NUR ---
PM SHIFT SUMMARY PATIENT ONLY REQUESTED PAIN MEDICATION ONCE DURING THE SHIFT. HE SLEPT IN HIS CHAIR AND DID NOT WANT TO GET BACK INTO THE BED. EARLY IN THE MORNING, PATIENT CALLED ME INTO HIS ROOM TO SHOWE ME THAT IS MIDLINE CATHETER HAD COME OUT OF HIS ARM. HE DOES NOT HAVE ANY IV MEDICATIONS ORDERED AT THIS TIME. INTERESTINGLY, THE LINE WAS TO BE DC'ED DURING THE SHIFT, PER POWERGLIDE SHEET OUTSIDE HIS DOOR. HAS AN APPOINTMENT WITH [facility] ON 11/27/21 FOR POSSIBLE ADMIT AND REMOVAL OF IVC FILTER. [facility] IS PENDING AND A CONSULT FOR NUTRITION SERVICES ASSISTANT HAS BEEN PLACED.
--- NOTE | 2021-11-22 09:28 | NUR ---
ASKED PT IF WE COULD DO A BEDBATH. PT AGREED TO LATER. ASKED PT IF I COULD START CLEANING OFF BED TO GET READY. PT TOLD ME NO AND THAT HE NEEDED TO DEAL WITH WHAT WAS IMPORTANT TO HIM AT THIS TIME AND TOLD ME TO SHH.
--- NOTE | 2021-11-22 09:51 | NUR ---
MAD / Administrative follow up: If the principal continues to display signs of gross and volitional medical non-adherence, my recommendation would be to issue the IMM, let the payer adjudicate the need for ongoing hospitalization and service, and give the patient an opportunity to contest the d/c. This action should only be taken if all other avenues of remediation have been exhausted, and the principal is discovered to be the matthews impediment to an otherwise safe and proper disposition plan. Thank you for this consult. Mal Case ThD, RENEE
--- NOTE | 2021-11-22 17:46 | NUR ---
PATIENT IS AWAKE,ALERT AND ORIENT WITH EPISODE OF FORGETFULNESS. PATIENT PAIN IS CONTROLLED,DENIES COMPLAINT AND DISCOMFORT.
--- NOTE | 2021-11-23 05:46 | NUR ---
PM SHIFT SUMMARY PATIENT CONTINUES TO USE HIS CALL LIGHT IN AN OVERBEARING MANNER. I EXPLAINED TO HIM THAT HE NEEDS TO GROUP HIS CALLS TOGETHER, BOTH MYSELF, AND MY CHILD SUPPORT CASE OFFICER, HAVE OTHER PATIENT'S NEEDS TO ATTEND TO DURING THE SHIFT WELL. HE ONLY REQUIRED PAIN MEDICATION ONCE DURING THE SHIFT. HE HAD AN EXTREMELY LARGE, VERY HARD BOWEL MOVEMENT DURING THE SHIFT.NO NEW COMPLAINTS AT THIS TIME.
--- NOTE | 2021-11-23 11:54 | NUR ---
CALL FROM SISTER: THIS RN RECIEVED A CALL FROM PT'S SISTER, CASSY. PT GAVE VERBAL PERMISSION FOR THIS RN TO SPEAK WITH CASSY REGARDING HIS CARE. PER CASSY, TY CALLED HER THIS MORNING VERY UPSET THAT THE HOSPITAL WAS "SENDING HIM TO A FPC TODAY WHEN I'M NOT BETTER". I INFORMED CASSY OF THE BARRIERS THE PATIENT IS CREATING TO PREVENT A SAFE DISCHARGE PLAN, INCLUDING THE VISIT FROM [facility] THIS AM (PLEASE SEE CM NOTE). CASSY REPORTS THAT THIS IS NOT UNUSUAL BEHAVIOR FOR HER BROTHER. CASSY WANTED TO BE REASSURED THAT HER BROTHER WILL NOT "FALL THROUGH THE CRACKS". I INFORMED HER THAT A SAFE PLAN IS TRYING TO BE FORMED, BUT THAT TY WILL NEED TO HELP MAKE THAT HAPPEN. CASSY VERBALIZED AN UNDERSTANDING.
--- NOTE | 2021-11-23 16:04 | NUR ---
Spiritual Care. Pt. is alert and sitting up. Pt. was busy with his papers and was attempting to make a call. I offered to return later. Pt. requested me to call him from my personal cell phone. I declined. Pt. wanted to send granddaughter a photo of a gertrude gift and baloon he had in the room. I offered to send it if he could give me an email address. Pt. displayed evidence of a short attention span, and verbalized a request to give him some time to do his personal business. Pt. displayed evidence of understanding my role as a contracting specialist, but little evidence of seeking personal spiritual care.
--- NOTE | 2021-11-23 17:28 | NUR ---
PATIENT IS AWAKE,ALERT AND ORIENTED TIMES THREE.DENIES PAIN. PAIN SIT IN CHAIR ALL DAY. PATIENT ATE 100% OF LUNCH AND BREAKFAST.
--- NOTE | 2021-11-24 06:49 | NUR ---
SHIFT SUMMARY: PATIENT CONTINUES TO REPORT INTERMITTENT PAIN, TONIGHT PAIN IS IN LEFT SHOULDER. OXYCODONE WAS GIVEN WITH GOOD EFFECT. PATIENT SLEEPS IN CHAIR TONIGHT. REFUSED HS SEROQUEL.
--- NOTE | 2021-11-24 16:53 | NUR ---
ALERT. ORIENTED. MOSTLY COOPERATIVE. CAN GET IMPATIENT AND IRRITABLE. HAS DENIED THE NEED FOR ANY PAIN MEDS. STAYS IN RECLINER CHAIR ALL OF SHIFT. GOOD APPETITE. REFUSES SOME MEDS EVEN WHEN EXPLAINED WHY HE NEEDS THEM LIKE GLYPIZIDE AND LASIX. UNLABORED RESPIRATIONS. LEGS WITH EDEMA, DRY SCALEY SKIN. DOES ELAVATE LEGS SOMETIMES WHILE IN RECLINER. AWAITING BED IN [place] TO DEAL WITH IVC FILTER. WCTM
--- NOTE | 2021-11-25 07:26 | NUR ---
SHIFT SUMMARY: PATIENT IS RESISTANT TO TRANSFER TO THE BED FOR FULL SKIN ASSESSMENT AND BATH. CONTINUES TO REFUSE HS SEROQUEL AND HAS NOT SLEPT IN TWO NIGHTS, ONLY CAT NAPS. INTERMITTENT PAIN IN BILAT LEGS, OXYCODONE X1 WAS WAS GIVEN WITH GOOD EFFECT. PATIENT ALSO REQUESTED MELATONIN, MED WAS GIVEN WITH POOR EFFECT.
--- NOTE | 2021-11-25 16:41 | NUR ---
Patient was alert and orient, his affect was restricted and mood was congruent. Patient sat in the chair throughout the shift. He did have an XL BM right before taking a shower. He was assist of 2 for all cares/activities. Patient refuses to take medications and not just the Seroquel. The provider discontinued the Seroquel and ordered Trazodone 50mg at HS to assist with sleep. Patient used the hospital phone and his cellphone to call the front desk specialist and unit desk continuosly, Patient was informed that the phone could be taken for a period of time if behavior continued. However he did stop this behavior. Patient continued to have requests and staff continued to assist his needs
--- NOTE | 2021-11-26 06:11 | NUR ---
SHIFT SUMMARY: PATIENT CONTINUES TO REFUSE MEDICATIONS. SECOND ATTEMPT WAS MADE TO ADMINISTER XARELTO, PATIENT CONTINUES TO REFUSE. ALSO REFUSED TRAZADONE AT HS. REFUSED TRANSFER TO BED FOR FULL SKIN ASSESSMENT. INTERMITTENT PAIN REPORTED IN RLE, OXYCODONE WAS GIVEN WITH GOOD EFFECT.
--- NOTE | 2021-11-26 17:48 | NUR ---
Patient was alert and orient. Patient refused medications from RN. At first he stated, "I'll take them later", then later he stated "I'm not going to take them" Provider was notified. Patient sat in the chair throughout the shift refusing to lay down in bed. Patient only wanted to depict and tell the staff what to do. Patient did not complain of pain or discomfort. He appeared to be in better spirits so far. No discharge as of yet
--- NOTE | 2021-11-27 06:28 | NUR ---
SHIFT SUMMARY AOX2-SELF. FORGETFUL OF PLACE, DATE & SITUATION. CONFUSED. REPETITIVE, TANGETABLE THOUGHT & SPEECH. VSS. REPORTS 910 PAIN ALLOVER, MEDICATED 1X c 5MG OXYCODONE, NO FURTHER PAIN REPORTED. DENIES SOB OR N/V. BLE RED, WARM, SCALY c SCABS & +3 EDEMA, ENCOURAGED PT TO ELEVATE. PT REFUSED ALL MEDS EXCEPT XARELTO & PAIN PILL, HAD TO DISCUSS THE IMPORTANCE MANY TIMES OF TAKING XARELTO BEFORE PT WOULD CONSIDER TAKING. 3 PER STAND c GB & FWW TO CHANGE LINENS UNDER PT THIS AM. REDNESS UNDER PANNUS & IN GROIN FOLDS, CLEANSED & NYSTATIN APPLIED. ARGUMENTATIVE THIS AM & WANTING TO CALL "[facility]" & "[facility]" WHEN ASKED WHAT NUMBER HE WANTED TO CALL PT HAD DIFFICULTY STAYING FOCUSED ON WHAT I ASKED & THEN WOULD STATE "541-[facility]" OR "541-[facility]" NONSENSICAL RESPONSES FOR PHONE NUMBERS, HAVING DIFFICULTY PROCESSING WHAT IS BEING ASKED. AWAITING SAFE DC PLAN. CALL LIGHT IN REACH. TM.
[2021-11-27 12:58] LABS: Hematocrit 41.1 % (37.0-53.0); Hemoglobin 13.5 g/dL (13.5-17.5); Mean Corpuscular HGB 31.3 pg (26.0-34.0); Mean Corpuscular HGB Conc 32.8 g/dL (31.5-36.5); Mean Corpuscular Volume 95 fL (80-100); Mean Platelet Volume 9.7 fL (9.1-12.4); Platelet Count 235 K/mm3 (150-400); RDW Coefficient Variation 14.9 % (11.7-14.2); RDW Standard Deviation 52.2 fL (35.1-46.3); Red Blood Cell Count 4.32 M/mm3 (4.30-5.90); White Blood Cell Count 6.84 K/mm3 (4.00-11.30)
[2021-11-27 13:25] LABS: Alanine Aminotransfer (ALT/SGP 24 U/L (12-78); Albumin, Blood 3.6 g/dL (3.4-5.0); Albumin/Globulin Ratio 0.9 (0.8-1.8); Alk Phos 102 U/L (50-136); Anion Gap 7 mmol/L (6-16); Aspartate Aminotrans (AST/SGOT 15 U/L (12-37); Bilirubin, Total 0.7 mg/dL (0.1-1.0); Blood Urea Nitrogen 15 mg/dL (8-24); Bun/Creatinine Ratio 27.3 (12.0-20.0); CO2, Blood 26 mmol/L (21-32); Calcium, Blood 9.8 mg/dL (8.5-10.1); Chloride, Blood 101 mmol/L (98-108); Creatinine, Blood 0.55 mg/dL (0.60-1.20); Glomerular Filtration Rate >60 (60-); Glucose, Blood 130 mg/dL (70-99); Potassium, Blood 4.1 mmol/L (3.5-5.5); Sodium, Blood 134 mmol/L (136-145); Total Protein, Blood 7.6 g/dL (6.4-8.2)
[2021-11-27 13:27] LABS: BASOPHILS PERCENT MAN 0 % (0-2); EOSINOPHILS ABSOLUTE MAN 0.06 K/mm3 (0.00-0.68); EOSINOPHILS PERCENT MAN 1 % (0-6); LYMPHOCYTES ABSOLUTE MAN 1.29 K/mm3 (0.84-5.20); LYMPHOCYTES PERCENT MAN 19 % (21-46); MONOCYTES ABSOLUTE MAN 0.61 K/mm3 (0.16-1.47); MONOCYTES PERCENT MAN 9 % (4-13); NEUTROPHILS ABSOLUTE MAN 4.85 K/mm3 (1.96-9.15); SEG NEUTROPHILS PERCENT MAN 71 % (41-73); TOTAL CELLS COUNTED 100
--- NOTE | 2021-11-27 18:28 | NUR ---
SHIFT SUMMARY: NO ACUTE EVENTS. PT CONTINUES TO BE CONFUSED AND PARANOID. CALLS HIS FAMILY MEMBERS CONSTANTLY, ALSO CALLS THE ACC DESK TO ASK FOR COFFEE. EDUCATED PT ABOUT THE NEED TO TAKE HIS XARELTO D/T THROMBUS; HE CONTINUED TO ARGUE ABOUT THE SIDE EFFECTS. 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 REFUSED MUCH OF HIS PHYSICAL ASSESSMENT. IN RECLINER ALL SHIFT. USING URINAL INDPENDENTLY. HAD LONG CONVERSATION WITH HIS SISTER CASSY SHRESTHA [phone] ABOUT HIS MENTATION AND THE PLAN GOING FORWARD.
--- NOTE | 2021-11-28 16:59 | NUR ---
SHIFT SUMMARY PT A&O X4, THOUGH CONFUSED @ TIMES T/O SHIFT. PT UP TO CHAIR AND RELAXED IN BED T/O SHIFT. POWDER APPLIED TO GROIN AND PANAS FOR REDDNESS. PAIN MEDICATED PER EMAR. PT VERY TALKATIVE T/O SHIFT, EXPLAINING HOW NUEROTRANSMITTERS WORK. VSS. CALL LIGHT W/IN REACH.
--- NOTE | 2021-11-28 20:25 | NUR ---
MULTIPLE VERBAL REQUESTS, MOANS AND COMPLAINTS THAT HE CANT HEAR STAFF WHEN THEY ANSWER HIS QUESTIONS. ENCOURAGED NOT TO CALL FRIENDS AND FAMILY AT THIS TIME THEY WERE TRYING TO GET SLEEP (THEY LIVE IN [place], AND SISTER CALLED TO HAVE PT NOT CALL HER THIS EVENING). TV ON. CALL LIGHT IN REACH
--- NOTE | 2021-11-29 03:43 | NUR ---
BRAILLE CODER SUMMARY REFUSED TO GO TO BED, STATED WOULD STAY IN RECLINER CHAIR INSTEAD. VERY TALKATIVE AND EASILY AGITATED WHEN DEMANDING ATTENTION FROM STAFF. RECEIVED ANALGESIC X 1 OF THIS WRITING, REFUSED SLEEP MED WHEN OFFERED (FOR BETTER REST). CHIDED STAFF FOR OFFERING A MED HE DIDNT ASK FOR. TV ON, PT DOZING OCCASIONALLY. CALL LIGHT IN REACH.
[2021-11-29] MEDS ORDERED: ACET500 PO (16:14)
[2021-11-29] MEDS ORDERED: JUVEN PACKET1 EAC3 PO (16:16)
[2021-11-29] MEDS ORDERED: GLIP5ER PO (16:19)
[2021-11-29] MEDS ORDERED: DULCOLAX400 MG/51 PO (16:21)
[2021-11-29] MEDS ORDERED: MELATONIN5 M6 PO (16:22)
[2021-11-29] MEDS ORDERED: ROXICODONE5 MG PO (16:25)
[2021-11-29] MEDS ORDERED: SILVADENE20 G1 TOP (16:26)
[2021-11-29] MEDS ORDERED: ALCIS59.15 ML TOP (16:27)
[2021-11-29] MEDS ORDERED: TORSE20 PO (16:28)
[2021-11-29] MEDS ORDERED: MICONAZOLE NIT130 GM TOP (16:36)
--- NOTE | 2021-11-29 17:08 | NUR ---
PT REPORT CALLED AND PROVIDED TO DHEERAJ LEBLANC @ THIS TIME.
--- NOTE | 2021-11-29 18:44 | NUR ---
DISCHARGE PT D/[facility] @ THIS TIME. [facility] PROVIEDED TRANSPORT VIA [employer] TO [facility]. PACKET AND HARD SCRIPT PROVIDED TO TRANSPORTER. VSS. REPORT CALLED TO GUERITA.
== END 2021-11-29 18:42 | DRG 314 ==
LOC: ER 10:30 → MEDS 10:31
PROVIDERS: Emergency Medicine; Family Medicine; Internal Medicine; Nurse Practitioner Acute Care; ADMIT Internal Medicine
PROC: 8E0ZXY6 Isolation (ICD-10-PCS; principal; 2021-11-24)
DX: T82.868A Thrombosis due to vascular prosthetic devices, implants and grafts, initial encounter (principal); U07.1 COVID-19; L03.115 Cellulitis of right lower limb; E87.1 Hypo-osmolality and hyponatremia; Z68.42 Body mass index [BMI] 45.0-49.9, adult; I83.218 Varicose veins of right lower extremity with both ulcer of other part of lower extremity and inflammation; I83.228 Varicose veins of left lower extremity with both ulcer of other part of lower extremity and inflammation; L97.819 Non-pressure chronic ulcer of other part of right lower leg with unspecified severity; L97.829 Non-pressure chronic ulcer of other part of left lower leg with unspecified severity; F02.81 Dementia in other diseases classified elsewhere, unspecified severity, with behavioral disturbance; I82.523 Chronic embolism and thrombosis of iliac vein, bilateral; L03.116 Cellulitis of left lower limb; I10 Essential (primary) hypertension; G43.909 Migraine, unspecified, not intractable, without status migrainosus; Z96.653 Presence of artificial knee joint, bilateral; E66.01 Morbid (severe) obesity due to excess calories; F32.A Depression, unspecified; G62.9 Polyneuropathy, unspecified; M19.90 Unspecified osteoarthritis, unspecified site; E11.9 Type 2 diabetes mellitus without complications; J44.9 Chronic obstructive pulmonary disease, unspecified; F90.9 Attention-deficit hyperactivity disorder, unspecified type; R25.2 Cramp and spasm; I89.0 Lymphedema, not elsewhere classified; D50.9 Iron deficiency anemia, unspecified; I86.1 Scrotal varices; R68.2 Dry mouth, unspecified; Z53.29 Procedure and treatment not carried out because of patient's decision for other reasons; Z91.14 Patient's other noncompliance with medication regimen; Z87.891 Personal history of nicotine dependence; Z87.19 Personal history of other diseases of the digestive system; Z87.442 Personal history of urinary calculi; Z98.890 Other specified postprocedural states; Z88.8 Allergy status to other drugs, medicaments and biological substances; Z79.2 Long term (current) use of antibiotics; Z79.01 Long term (current) use of anticoagulants; Z79.899 Other long term (current) drug therapy; Y83.1 Surgical operation with implant of artificial internal device as the cause of abnormal reaction of the patient, or of later complication, without mention of misadventure at the time of the procedure
CPT/HCPCS: 0202U; 36415; 71045; 73701; 80048; 80053; 80069; 82947; 83036; 83735; 83880; 84100; 85007; 85025; 85027; 85610; 85651; 85730; 86140; 87040; 93970; 94640; 94760; 94762; 96365; 96366; 96375; 96376; 97110; 97110-CQ; 97129; 97130; 97161; 97162; 97166; 97530; 97535; 99285-25; A9270; C1751; G0378; J0295; J0690; J1644; J1815; J2270; J2405; J3010; J3370; J7040; J7050; Q9967

== ENCOUNTER 2022-01-11 02:11 | Emergency (ER) | payer MEDICARE, OTHER ==
[~2022-01-11] VITALS: Ht 185.4 cm; Wt 147.4 kg
[~2022-01-11 02:11] MED LIST changes: +ACET500 PO; +ALCIS59.15 ML TOP; +BUME2 PO; +DULCOLAX400 MG/51 PO; +GLIP5ER PO; +JUVEN PACKET1 EAC3 PO; +MELATONIN5 M6 PO; +MICONAZOLE NIT130 GM TOP; +ROXICODONE5 MG PO; +SILVADENE20 G1 TOP
[2022-01-11 02:33] LABS: BASOPHILS ABSOLUTE AUTO 0.04 K/mm3 (0.00-0.23); BASOPHILS PERCENT AUTO 1 % (0-2); EOSINOPHILS PERCENT AUTO 2 % (0-6); Hemoglobin 13.3 g/dL (13.5-17.5); IMMATURE GRAN ABSOLUTE AUTO 0.02 K/mm3 (0.00-0.10); IMMATURE GRAN PERCENT AUTO 0 % (0-1); LYMPHOCYTES ABSOLUTE AUTO 1.59 K/mm3 (0.84-5.20); LYMPHOCYTES PERCENT AUTO 27 % (21-46); MONOCYTES ABSOLUTE AUTO 0.84 K/mm3 (0.16-1.47); MONOCYTES PERCENT AUTO 14 % (4-13); Mean Corpuscular HGB 30.2 pg (26.0-34.0); Mean Corpuscular HGB Conc 32.4 g/dL (31.5-36.5); Mean Corpuscular Volume 93 fL (80-100); Mean Platelet Volume 9.2 fL (9.1-12.4); NEUTROPHILS ABSOLUTE AUTO 3.39 K/mm3 (1.96-9.15); NEUTROPHILS PERCENT AUTO 57 % (41-73); Platelet Count 220 K/mm3 (150-400); RDW Coefficient Variation 14.4 % (11.7-14.2); RDW Standard Deviation 49.1 fL (35.1-46.3); Red Blood Cell Count 4.41 M/mm3 (4.30-5.90); White Blood Cell Count 5.98 K/mm3 (4.00-11.30)
[2022-01-11 02:52] LABS: Alanine Aminotransfer (ALT/SGP 17 U/L (12-78); Albumin, Blood 3.3 g/dL (3.4-5.0); Albumin/Globulin Ratio 0.8 (0.8-1.8); Alk Phos 105 U/L (50-136); Anion Gap 5 mmol/L (6-16); Aspartate Aminotrans (AST/SGOT 9 U/L (12-37); Bilirubin, Total 0.4 mg/dL (0.1-1.0); Blood Urea Nitrogen 17 mg/dL (8-24); Bun/Creatinine Ratio 29.1 (12.0-20.0); CO2, Blood 31 mmol/L (21-32); Calcium, Blood 9.4 mg/dL (8.5-10.1); Chloride, Blood 100 mmol/L (98-108); Creatinine, Blood 0.58 mg/dL (0.60-1.20); Globulin, Blood 4.1 g/dL (2.2-4.0); Glomerular Filtration Rate >60 (60-); Glucose, Blood 190 mg/dL (70-99); Potassium, Blood 4.1 mmol/L (3.5-5.5); Sodium, Blood 136 mmol/L (136-145); Total Protein, Blood 7.4 g/dL (6.4-8.2)
== END 2022-01-11 05:41 | disposition home or self-care (01) ==
LOC: ER 02:11
PROVIDERS: Emergency Medicine
DX: R07.9 Chest pain, unspecified (principal); J44.9 Chronic obstructive pulmonary disease, unspecified; I10 Essential (primary) hypertension; Z79.899 Other long term (current) drug therapy
CPT/HCPCS: 36415; 71045; 80053; 84484; 85025; 93005; 93010; 99285-25

== ENCOUNTER 2022-01-13 15:27 | Emergency (ER) | payer MEDICARE, OTHER ==
[~2022-01-13] VITALS: Ht 182.9 cm; Wt 135.2 kg
== END 2022-01-13 21:53 | disposition home or self-care (01) ==
LOC: ER 15:27
DX: Z00.00 Encounter for general adult medical examination without abnormal findings (principal); Z88.5 Allergy status to narcotic agent; Z88.6 Allergy status to analgesic agent; Z88.8 Allergy status to other drugs, medicaments and biological substances; Z79.899 Other long term (current) drug therapy; I10 Essential (primary) hypertension; J44.9 Chronic obstructive pulmonary disease, unspecified; Z87.442 Personal history of urinary calculi
CPT/HCPCS: 99284; Q3014